=== PATIENT | male | born 1965 | race African-American/Black ===

== ENCOUNTER 2017-08-29 10:33 | Inpatient (IN) | payer OTHER, SELFPAY ==
[2017-08-29] MEDS ORDERED: Metoprolol Tartrate 5 MG/5 ML VIAL ONE ×2 (10:55→12:59)
[2017-08-29 11:06] LABS: #Eosinphils 0.1 thou/uL (0.0-0.7); #Lymphocytes 1.7 thou/uL (1.20-3.40); #Monocytes 0.9 thou/uL (0.11-0.59); #Neutrophils 10.6 thou/uL (1.40-6.50); %Basophils 0.2 % (0.0-1.0); %Eosinophils 0.8 % (0.0-10.0); %Lymphocytes 12.9 % (21.0-51.0); %Monocytes 6.6 % (0.0-10.0); %Neutrophils 79.6 % (42.0-75.0); Hemoglobin 16.6 g/dL (14.0-18.0); Mean Corpuscular HGB CONC 31.6 g/dL (32.0-36.0); Mean Corpuscular Hemoglobin 30.1 pg (27.0-31.0); Mean Corpuscular Volume 95.2 fl (80.0-94.0); Platelet Count 158 thou/uL (130-400); Red Blood Cell (RBC) Count 5.52 mill/uL (4.70-6.10); White Blood Cell (WBC) Count 13.4 thou/uL (4.8-10.8)
[2017-08-29] MEDS ORDERED: Magnesium 2 GM/NS 0.9% 50 ML 2 GM in Premix Bag 1 BAG IVPB SCH (11:15)
[2017-08-29 11:32] LABS: ALT (SGPT) 32 U/L (8-55); AST (SGOT) 34 U/L (5-34); Albumin 3.9 g/dL (3.5-5.0); Alkaline Phosphatase 109 U/L (40-150); Anion Gap 18 mmol/L (10-20); BUN (Urea Nitrogen) 15 mg/dL (8.4-25.7); Bilirubin, Total 1.1 mg/dL (0.2-1.2); CK (CPK) 275 U/L (30-200); Calc. Creatinine Clearance 0 mL/min (70-130); Calcium 9.1 mg/dL (7.8-10.44); Carbon Dioxide 24 mmol/L (22-29); Chloride 98 mmol/L (98-107); Estimated GFR-MDRD 60; Globulin 3.4 g/dL (2.4-3.5); Glucose 358 mg/dL (70-105); Lipase 23 U/L (8-78); Potassium 4.4 mmol/L (3.5-5.1); Protein, Total 7.3 g/dL (6.0-8.3); Sodium 136 mmol/L (136-145)
[2017-08-29 11:35] LABS: CKMB 6.6 ng/mL (0-6.6); Troponin I 0.075 ng/mL (< 0.028)
--- NOTE | 2017-08-29 12:12 | RAD ---
ONE VIEW CHEST: History: Pain. Bilateral lower extremity swelling. Shortness of breath. Comparison: None. FINDINGS: Enlarged cardiac silhouette. Pulmonary vessels are normal. Costophrenic angles are clear. Linear opac ity in the right midlung may represent atelectasis or possible small amount of thickening and fluid i n the minor fissure. No pneumothorax. IMPRESSION: Focal opacity in the right midlung as described above. POS: [facility]
--- NOTE | 2017-08-29 12:46 | PDOC.FPRHP ---
- History of Present Illness Chief Complaint: Lower extremity swelling History of Present Illness: 52 year old male with PMH diabetes mellitus type II, not currently on medications that presents with a 2 month history of lower extremity swelling. 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 Elevation of his feet improves the swelling. He denies any erythema or pain in lower extremities except when wearing his work boots. Patient also endorses shortness of breath even with ADL's that has been present for the past two weeks. He has never experienced shortness of breath to this degree previously. He states that he is a tobacco user. He has smoked at least 1 PPD for many years, but since August 22 he has been unable to smoke due to the fact that he is too short of breath. Patient denies any associated chest pain, nausea, vomiting, diarrhea, or diaphoresis. He denies orthopnea or PND. Patient states that he just took his DMV physical in May and was not noted to have any problems at that time. He has not followed with a PCP in over 3 years. He is supposed to be taking metformin, but has been non-compliant with medications due to GI side effects. Patient also has a history of MATTI that was diagnosed years ago. He has not been on CPAP. Patient reports he quit drinking around Thanks. Patient does endorse having a cough productive of green sputum over the last few weeks. He states that it is improving. Patient does not currently have PCP. He was following with Dr. Wadsworth several years ago. - Allergies/Adverse Reactions Allergies Allergy/AdvReac Type Severity Reaction Status Date / Time No Known Allergies Allergy Verified 08/29/17 19:51 - Home Medications Medication Instructions Recorded Confirmed Type metFORMIN [Glucophage] 250 mg PO BID 08/29/17 08/29/17 History Comments: Patient not currently taking any medications. He is supposed to be on metformin , but has not been taking it due to GI symptoms. 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 Quit drinking last thanks - Review of Systems General: reports: fatigue. denies: fever/chills, weight/appetite/sleep changes , night sweats Eyes: denies: vision changes ENT: denies: nasal congestion, rhinorrhea Respiratory: reports: cough (2 weeks), shortness of breath, exercise intolerance. denies: congestion Cardiovascular: reports: edema. denies: chest pain, palpitation, paroxysmal nocturnal dyspnea, orthopnea Gastrointestinal: denies: nausea, vomiting, diarrhea, constipation, abdominal pain Genitourinary: denies: incontinence, dysuria, polyuria Skin: denies: rashes, jaundice Musculoskeletal: denies: pain, tenderness, stiffness Neurological: denies: numbness, syncope, seizure Psychological: denies: anxiety, depression - Vital signs BP: [161/99] HR: [111] RR: [18] Tmax: [98.0 F] Pox: [96]% on [2L] Wt: [141.52 kg] - Physical Exam Constitutional: NAD, awake, alert and oriented, well developed -Constitutional: Obese HEENT: EOMI, conjunctiva clear, grossly normal vision, grossly normal hearing Neck: supple -Heart: Tachycardic, Regular rhythm, no murmurs. Bilateral LE edema, non-pitting -Lungs: Wheezing diffusely throughout Abdomen: soft, non-tender, bowel sounds present -Abdomen: mildly distended Musculoskeletal: normal structure, ROM grossly normal Neurological: no focal deficit Skin: capillary refill <2 seconds -Skin: right breast mass engrossing areola. Inverted nipple. Scaly skin findings. Heme/Lymphatic: no unusual bruising or bleeding Psychiatric: normal mood and affect, good judgment and insight, intact recent and remote memory FMR H&P: Results - Labs Result Diagrams: 08/30/17 04:33 08/30/17 04:33 Lab results: WBC 13.4 thou/uL (4.8-10.8) H 08/29/17 10:49 Hgb 16.6 g/dL (14.0-18.0) 08/29/17 10:49 Hct 52.5 % (42.0-52.0) H 08/29/17 10:49 MCV 95.2 fl (80.0-94.0) H 08/29/17 10:49 Plt Count 158 thou/uL (130-400) 08/29/17 10:49 Neutrophils % 79.6 % (42.0-75.0) H 08/29/17 10:49 Sodium 136 mmol/L (136-145) 08/29/17 10:49 Potassium 4.4 mmol/L (3.5-5.1) 08/29/17 10:49 Chloride 98 mmol/L (98-107) 08/29/17 10:49 Carbon Dioxide 24 mmol/L (22-29) 08/29/17 10:49 BUN 15 mg/dL (8.4-25.7) 08/29/17 10:49 Creatinine 1.48 mg/dL (0.6-1.3) H 08/29/17 10:49 Glucose 358 mg/dL (70-105) H 08/29/17 10:49 Calcium 9.1 mg/dL (7.8-10.44) 08/29/17 10:49 Total Bilirubin 1.1 mg/dL (0.2-1.2) 08/29/17 10:49 AST 34 U/L (5-34) 08/29/17 10:49 ALT 32 U/L (8-55) 08/29/17 10:49 Alkaline Phosphatase 109 U/L (40-150) 08/29/17 10:49 Creatine Kinase 275 U/L (30-200) H 08/29/17 10:49 CK-MB (CK-2) 6.6 ng/mL (0-6.6) 08/29/17 10:49 B-Natriuretic Peptide 209.7 pg/mL (0-100) H 08/29/17 10:49 Serum Total Protein 7.3 g/dL (6.0-8.3) 08/29/17 10:49 Albumin 3.9 g/dL (3.5-5.0) 08/29/17 10:49 Lipase 23 U/L (8-78) 08/29/17 10:49 - EKG Interpretation EK. V-tach 2. A-fib with RVR, T wave changes 3. A-flutter with T wave changes in inferior and posterior leads - Radiology Interpretation CT scan - chest Status: image reviewed by me, report reviewed by me Additional comment: No evidence of PE. Right sided pleural effusion. Breast mass noted on CT, recommend further evaluation. Chest x-ray Status: report reviewed by me Additional comment: Focal opacity in right midlung Other Status: report reviewed by me Additional comment: Bilateral LE venogram: No evidence of DVT FMR H&P: A/P - Problem List (1) Atrial fibrillation with RVR Current Visit: Yes Status: Acute Code(s): I48.91 - UNSPECIFIED ATRIAL FIBRILLATION (2) CHF (congestive heart failure), NYHA class III Current Visit: Yes Status: Acute Code(s): I50.9 - HEART FAILURE, UNSPECIFIED (3) Diabetes mellitus type II, uncontrolled Current Visit: Yes Status: Chronic Code(s): E11.65 - TYPE 2 DIABETES MELLITUS WITH HYPERGLYCEMIA (4) Acute respiratory failure with hypoxia Current Visit: Yes Status: Acute Code(s): J96.01 - ACUTE RESPIRATORY FAILURE WITH HYPOXIA (5) HTN (hypertension) Current Visit: Yes Status: Acute Code(s): I10 - ESSENTIAL (PRIMARY) HYPERTENSION (6) Tobacco abuse Current Visit: Yes Status: Chronic Code(s): Z72.0 - TOBACCO USE (7) COPD (chronic obstructive pulmonary disease) Current Visit: Yes Status: Chronic - Plan 1. A-fib/flutter with RVR - Patient presented due to shortness of breath for the past two weeks and LE swelling for the past 2 months. Found to be in Vtach initially with HR in 200' s. Repeat EKG showed Afib with RVR. 5 mg of Lopressor was given and patient's HR responded appropriately. Patient received 5 mg of lopressor again several hours later. Repeat EKG showed Aflutter with HR in 110's - New onset; uncertain of duration - Responded to 10 mg of IV lopressor (HR 110's) - Continue Lopressor PO; consider drip if patient's heart rate not well controlled, may try IV metoprolol first - Cardiology consulted; appreciate recs - Monitor on telemetry - PT/OT eval/treat - TSH normal - Patient never unstable during episodes of vtach or RVR; did not require cardioversion 2. Acute hypoxic respiratory failure possibly 2/2 new onset CHF - 2 week history of shortness of breath with ADL's consistent with NYHA class III CHF - Echo pending - Lasix PO daily - Cardiology consulted; appreciate recs - Continue O2 PRN to keep O2 sats >92% - Strict I&O's - Daily weights - Trending CE's - CTA negative for PE, right pleural effusion noted on CTA - Heart score of 5, no prior stents/cath 3. Possible COPD - No confirmed diagnosis - Symptoms consistent with chronic bronchitis - Several week history of productive cough (improving) with bilateral wheezing - JONH duonebs - PRN albuterol nebs 4. Right breast mass with bilateral gynecomastia - Concern for malignancy - U/S right breast pending - Consider follow up with mammogram inpatient vs. outpatient 5. DM type II, uncontrolled - HgA1c >11 - Stopped taking metformin due to GI side effects - Mild SSI - CC diet - Start glipizide daily - ASA daily - Start lisinopril daily - Start high intensity statin - FLP pending - ACHS accuchecks 6. HTN - Not previously diagnosed - Not on HTN medications at home - Started lisinopril and lopressor for comorbid conditions - Will continue to monitor and adjust medications as necessary 7. 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 He reports that he has not been able to walk very far at all 2/2 to feeling SOB. He has also stopped smoking 2/2 to feeling SOB. Reports that he has also had some LE swelling b/l as well as R breast mass that has gotten worse over the last several months. Reports that this mass may have appeared after trauma/scraping his chest on his truck, but there has been no swelling, redness, drainage, fevers. Reports that he hasn't had a cath/stress test before, no one has followed his DM II in a long time, no eval of his breast mass. 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 Was seeing Dr. Wadsworth but stopped seeing him years ago 2/2 to loss of insurance. States he is willing to go back to see him now that we have discussed that he likely has a lot of medical problems and things to catch up on. - Pertinent findings Gen: AOx4, obese, wearing 2 L NS Heart: difficult to ascultate 2/2 to habitus but sounds regular despite EKG findings of aflutter Lungs: diffuse wheezing Chest: large R breast mass engrossing areola, inverted nipple, scaly skin findings - Plan Date/Time: 08/29/17 4124 Pertinent A/P: 1. A flutter with RVR-initial EKG showed vtach but pt was never unstable clinically and was given IV metoprolol. Last two EKGs HR has come down now to 100 and shows 2:1 aflutter, will add BB and hold on drip as HR is now controlled , consider starting if HR starts to climb 2. SOB unknown etiology-pt has not had regular medical care states he doesnt have any problems but we suspect COPD vs CHF vs CAD. COPD given wheezing on exam , long hx of smoking, advised smoking cessation, will start with duo nebs, does not appear in exacerbation so will hold off on steroids and abx, if worsening will start. CHF-elevated BNP, LE edema, orthopnea, will order an echo. CTA shows pleural effusion, will diurese gently. Pt at high risk for CAD, HEART score of 5, will trend trops, have been indeterminant so far, consulted cards and would appreciate recs concerning cath vs stress and inpatient or outpatient work up. 3. R breast mass-concerning for malignancy on exam, will order u/s and discussed with pt that we are concerned about this and he will need a diagnostic mammogram and follow up 4. DM II-Check A1c, pt refusing to take meformin 2/2 to side effects, will start sulfonylurea and check A1c and risk stratify with FLP, TSH. I, Wanda Wilson, have evaluated this patient and agree with findings/plan as outlined by social media intern resident. Pertinent changes/additions are listed here. Attending Addendum - Attending Addendum Date/Time: 08/30/17 284 I personally evaluated the patient and discussed the management with Dr. Guzman. I agree with the History, Examination, Assessment and Plan documented above with any addition or exceptions noted below. 52 y.o. BM with h/o DM2 uncontrolled, MATTI off CPAP, tobacco abuse with acute progressive increased Dyspnea at rest, BLE edema found to be in Afib/flutter with RVR, rate controled with B-halima. Requiring supplemental O2 and Nebs to maintain oxygenation. Also of note is large brest mass with nipple inversion, concern for malignancy.
[2017-08-29] MEDS ORDERED: Enoxaparin Sodium 100 MG/ML SYRINGE ONE (13:17)
--- NOTE | 2017-08-29 13:56 | ULT ---
BILATERAL LOWER EXTREMITY VENOUS DOPPLER ULTRASOUND: Date: 08/29/17 HISTORY: Bilateral lower extremity edema. TECHNIQUE: Soto scale ultrasound with color flow and spectral Doppler imaging of the deep venous systems of the lower extremities was performed bilaterally. FINDINGS: There is good flow, compression, and augmentation noted in the common femoral, femoral, deep femoral, popliteal, posterior tibial, and greater saphenous veins on either side. IMPRESSION: No evidence of deep venous thrombosis in either lower extremity. POS: [facility]
--- NOTE | 2017-08-29 14:03 | CT ---
CT PULMONARY ANGIOGRAM WITH IV CONTRAST AND 3D POSTPROCESSING: Date: 08/29/17 HISTORY: 52-year-old male with chest pain, shortness of breath, and lower extremity swelling. 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 FINDINGS: The pulmonary arterial vasculature is well opacified without filling defects to suggest pulmonary emb olism. The thoracic aorta demonstrates no evidence of aneurysmal dilatation. No pericardial effusion is seen. A small right pleural effusion is noted. No pneumothoraces or left-sided pleural effusions a re identified. No lobar consolidation is noted. Degenerative changes are present in the spine. Bilate ral gynecomastia is present. An underlying right-sided breast mass cannot be excluded. IMPRESSION: 1. No CT evidence of pulmonary embolism. 2. Right-sided pleural effusion. 3. Bilateral gynecomastia with questionable right breast mass. Further evaluation with mammogram (wi th ultrasound if needed) should be performed. THANG Fried
[2017-08-29] MEDS ORDERED: ISOVUE-370 76%-LOCM 1 ML ONE (14:47)
[2017-08-29 15:00] LABS: CKMB 5.9 ng/mL (0-6.6); Troponin I 0.058 ng/mL (< 0.028)
[2017-08-29] MEDS ORDERED: Dextrose 5% in Water 1,000 ML IV PRN (15:11)
[2017-08-29] MEDS ORDERED: Dextrose 50% Abboject 50 ML SYRINGE SLOW IVP PRN (15:11)
[2017-08-29] MEDS ORDERED: Albuterol Sulfate 2.5 mg/3 ml Neb NEB PRN (15:11)
[2017-08-29 15:31] LABS: Hemoglobin A1c 11.5 % (4.0-6.0)
[2017-08-29 15:33] VITALS: BMI 44.7
[2017-08-29] MEDS ORDERED: Furosemide 20 MG TAB PO SCH (16:00)
--- NOTE | 2017-08-29 16:38 | ULT ---
RIGHT BREAST ULTRASOUND: Date: 08/29/17 HISTORY: Possible right breast mass. COMPARISON: None. CORRELATION: Angiogram of chest dated 08/29/17. TECHNIQUE: Targeted sonographic imaging of the right breast in the retroareolar region is performed. FINDINGS: There is an irregular marginated, hypoechoic mass with vascularity in the retroareolar region measuri ng 3.3 x 4.8 x 4.3 cm. This mass is felt to correspond to the CT findings. IMPRESSION: BIRADS 4: Suspicious Abnormality - Biopsy Should Be Considered RECOMMENDATION: Ultrasound guided right breast biopsy. POS: [facility]
[2017-08-29] MEDS: HumaLOG 300 UNITS/3 ML VIAL SC PRN (18:04)
[2017-08-29 18:11] LABS: CKMB 6.3 ng/mL (0-6.6); Troponin I 0.055 ng/mL (< 0.028)
[2017-08-29] MEDS ORDERED: Albuterol Sulfate 2.5 mg/3 ml Neb IPPB SCH (18:30)
[2017-08-29] MEDS ORDERED: Carvedilol 6.25 MG TAB PO SCH (20:30)
[2017-08-29] MEDS: Atorvastatin Calcium 40 MG TAB PO SCH (20:49)
[2017-08-29] MEDS: Enoxaparin Sodium 40 MG/0.4 ML SYRINGE SC SCH (20:50)
[2017-08-29] MEDS: Enoxaparin Sodium 100 MG/ML SYRINGE SC SCH (20:51)
[2017-08-29] MEDS ORDERED: Metoprolol Tartrate 50 MG TAB PO SCH (21:00)
[2017-08-30 05:40] LABS: Amphetamine Not Detected (NotDetected); Barbiturates Screen Not Detected (NotDetected); Benzodiazepine Screen Not Detected (NotDetected); Cocaine Metabolite Screen Not Detected (NotDetected); Medtox Control Line Valid? VALID (VALID); Medtox Reader # READER 4; Methadone Not Detected (NotDetected); Methamphetamine Not Detected (NotDetected); Opiate Screen Not Detected (NotDetected); Oxycodone Screen Not Detected (NotDetected); Phencyclidine (PCP) Not Detected (NotDetected); THC/Cannabinoid Screen Not Detected (NotDetected); Tricyclic Screen Not Detected (NotDetected)
[2017-08-30 05:47] LABS: #Eosinphils 0.3 thou/uL (0.0-0.7); #Lymphocytes 2.1 thou/uL (1.20-3.40); #Monocytes 1.1 thou/uL (0.11-0.59); #Neutrophils 7.8 thou/uL (1.40-6.50); %Basophils 0.2 % (0.0-1.0); %Eosinophils 2.3 % (0.0-10.0); %Lymphocytes 18.7 % (21.0-51.0); %Monocytes 9.7 % (0.0-10.0); %Neutrophils 69.1 % (42.0-75.0); Anion Gap 8 mmol/L (10-20); BUN (Urea Nitrogen) 12 mg/dL (8.4-25.7); Calc. Creatinine Clearance 158 mL/min (70-130); Calcium 8.5 mg/dL (7.8-10.44); Carbon Dioxide 34 mmol/L (22-29); Cardiac Risk 4.3 (Less than 4.5); Chloride 99 mmol/L (98-107); Cholesterol 128 mg/dl (< 200 Desired); Estimated GFR-MDRD 87; Glucose 155 mg/dL (70-105); HDL Cholesterol 30 mg/dL (>60 Neg Risk); LDL Cholesterol, Calculated 86 mg/dL; Mean Corpuscular Hemoglobin 30.3 pg (27.0-31.0); Mean Corpuscular Volume 94.8 fl (80.0-94.0); Mean Platelet Volume 8.8 fL (7.4-10.4); Platelet Count 150 thou/uL (130-400); Potassium 3.9 mmol/L (3.5-5.1); RBC Distribution Width 12.8 % (11.5-14.5); Sodium 137 mmol/L (136-145); Triglycerides 58 mg/dL (Less than 150); White Blood Cell (WBC) Count 11.3 thou/uL (4.8-10.8)
--- NOTE | 2017-08-30 06:07 | PDOC.FM ---
- Subjective Subjective: Patient doing well this AM. No significant overnight events. Patient denies chest pain, palpitations, shortness of breath, nausea, or vomiting. Discussed new medications that were started in the hospital. Patient understands the necessity to be on these medications. Patient slept with O2 last night and slept much better than normal. He was diagnosed sleep apnea but does not have CPAP machine at home. - Objective MAR Reviewed: Yes Vital Signs & Weight: Vital Signs (12 hours) Temp Pulse Resp BP BP Pulse Ox 08/30/17 04:55 97 08/30/17 04:00 97.6 F 110 H 20 137/91 H 95 08/30/17 00:00 97.4 F L 111 H 17 132/91 H 96 08/29/17 20:50 157/85 H 08/29/17 20:42 97.5 F L 113 H 25 H 157/85 H 97 08/29/17 19:36 120 H 20 97 08/29/17 19:01 97.5 F L 111 H 25 H 178/106 H 97 08/29/17 18:38 98.0 F 111 H 18 Weight Weight 143.834 kg I&O: 08/28/17 08/29/17 08/30/17 06:59 06:59 06:59 Intake Total 1205 Output Total 1205 Balance 0 Result Diagrams: 08/30/17 04:33 08/30/17 04:33 EKG Reviewed by me: Yes Radiology Reviewed by me: Yes <Ibis Guzman - Last Filed: 08/30/17 08:43> - Objective Vital Signs & Weight: Vital Signs (12 hours) Temp Pulse Resp BP BP Pulse Ox 08/30/17 09:58 95 18 98 08/30/17 09:15 138/85 08/30/17 09:13 138/85 08/30/17 06:41 100 20 97 08/30/17 04:55 97 08/30/17 04:00 97.6 F 110 H 20 137/91 H 95 Weight Weight 143.834 kg I&O: 08/29/17 08/30/17 08/31/17 06:59 06:59 06:59 Intake Total 1205 Output Total 1205 Balance 0 Result Diagrams: 08/30/17 04:33 08/30/17 04:33 <Lucrecia Barbour - Last Filed: 08/30/17 13:22> Phys Exam - Physical Examination Constitutional: NAD HEENT: moist MMs Neck: supple Respiratory: wheezing present Cardiovascular: no significant murmur tachycardic, regular rhythm Gastrointestinal: soft, non-tender, positive bowel sounds Trace non-pitting edema of LE's bilaterally Neurological: non-focal Psychiatric: normal affect Deviation from normal: Large, palpable mass engrossing areola on R. Overlying skin changes -: Inverted nipple <Ibis Guzman - Last Filed: 08/30/17 08:43> Dx/Plan (1) Atrial fibrillation with RVR Code(s): I48.91 - UNSPECIFIED ATRIAL FIBRILLATION Status: Acute (2) CHF (congestive heart failure), NYHA class III Code(s): I50.9 - HEART FAILURE, UNSPECIFIED Status: Acute (3) Diabetes mellitus type II, uncontrolled Code(s): E11.65 - TYPE 2 DIABETES MELLITUS WITH HYPERGLYCEMIA Status: Chronic (4) Acute respiratory failure with hypoxia Code(s): J96.01 - ACUTE RESPIRATORY FAILURE WITH HYPOXIA Status: Acute (5) HTN (hypertension) Code(s): I10 - ESSENTIAL (PRIMARY) HYPERTENSION Status: Acute (6) Tobacco abuse Code(s): Z72.0 - TOBACCO USE Status: Chronic (7) COPD (chronic obstructive pulmonary disease) Status: Chronic - Plan Plan: 1. A-fib/flutter with RVR - Patient presented due to shortness of breath for the past two weeks and LE swelling for the past 2 months. Found to be in Vtach initially with HR in 200' s. Repeat EKG showed Afib with RVR. 5 mg of Lopressor was given and patient's HR responded appropriately. Patient received 5 mg of lopressor again several hours later. Repeat EKG showed Aflutter with HR in 110's - New onset; uncertain of duration - Responded to 10 mg of IV lopressor (HR 110's) - Continue carvedilol per cardiology recs - Cardiology consulted; appreciate recs - Monitor on telemetry - PT/OT eval/treat - TSH normal - Patient never unstable during episodes of vtach or RVR; did not require cardioversion - Patient started on therapeutic lovenox per cardiology 2. Acute hypoxic respiratory failure possibly 2/2 new onset CHF - 2 week history of shortness of breath with ADL's consistent with NYHA class III CHF - Echo pending - Lasix PO daily (mild diuresis) - Cardiology consulted; appreciate recs - Continue O2 PRN to keep O2 sats >92% - Strict I&O's - Daily weights - CE's trended downward - CTA negative for PE, right pleural effusion noted on CTA - Heart score of 4-5, no prior stents/cath 3. Possible COPD - No confirmed diagnosis - Symptoms consistent with chronic bronchitis - Several week history of productive cough (improving) with bilateral wheezing - JONH duonebs - PRN albuterol nebs 4. Right breast mass with bilateral gynecomastia - Concern for malignancy - U/S right breast concerning for malignancy; BIRADS score of 4 - U/S guided right breast biopsy pending per recommendations of radiology 5. DM type II, uncontrolled - HgA1c >11 - Stopped taking metformin due to GI side effects - Mild SSI - CC diet - Start glipizide daily - ASA daily - Start lisinopril daily - Start high intensity statin - ACHS accuchecks - ASCVD risk score of 20.9%; recommend high dose statin 6. 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 Will follow cardiology recommendations. <Ibis Guzman - Last Filed: 08/30/17 08:43> Attending Addendum - Attending Addendum Date/Time: 08/30/17 1321 I personally evaluated the patient and discussed the management with Dr. Guzman. I agree with the History, Examination, Assessment and Plan documented above with any addition or exceptions noted below. The patient became tachycardic greater than 150's this morning while ambulating with therapy. He is also wheezing. Will continue nebs. Likely has underlying copd, will start maintenance inhaler. Pt is also requiring o2 and will try to wean. Echo pending. If heart rate remains elevated, may need to start him on a drip. <Lucrecia Barbour - Last Filed: 08/30/17 13:22>
--- NOTE | 2017-08-30 08:48 | CON ---
DATE OF SERVICE: 08/29/2017 HISTORY: Pedro Little is a 52-year-old black male with approximately 10-year history of diabetes, although he is noncompliant with taking his metformin. He has noted over the last 3 or 4 weeks that he started to develop lower extremity edema. He also has had progressive dyspnea on exertion where he is so short of breath that he could not even smoke over the last week. At times, he will feel his heart beating very rapidly. He denies any chest pain, nausea, vomiting, or diaphoresis. He had a DMV physical in May and apparently was not having any problems at that time. He also has history of obstructive sleep apnea, but does not use CPAP. He came to the emergency room for further evaluation and found to be in atrial fibrillation/flutter. He was admitted for further treatment. He did have EKG in the emergency room with heart rate of 227 per minute. He denies ever having any chest discomfort. PAST MEDICAL HISTORY: Diabetes, not compliant with medications. He denies history of hypertension, but his blood pressure is quite elevated. He denies history of hyperlipidemia, but there are no tests during this admission. MEDICATIONS: None. ALLERGIES: None. OPERATIONS: Neck surgery and cyst removal. SOCIAL HISTORY: He smoke 2 packs per day, but has cut down to 1 pack per day over the last year. Over the last week, he has been unable to smoke due to shortness of breath. FAMILY HISTORY: Unremarkable. REVIEW OF SYSTEMS: Twelve point review of systems otherwise unremarkable. PHYSICAL EXAMINATION: VITAL SIGNS: 161/99, pulse of up to 100, in atrial fibrillation. It is of note that initial blood pressure was 99/79. In the emergency room, his blood pressure has gradually increased. CHEST: Reveals expiratory wheezing. CARDIAC: S1, S2 normal, without any S3, S4 or murmurs. HEENT: PERRL. NECK: Supple. ABDOMEN: Normal bowel sounds. The abdomen is obese. There is no tenderness or organomegaly. EXTREMITIES: Revealed 1+ pretibial edema. NEUROLOGIC: Grossly intact. LABORATORY DATA: Initial EKG revealed a right wide complex tachycardia with rate of 227 per minute with right bundle branch block morphology. EKG later in the emergency room revealed atrial flutter. Hemoglobin 16.6, hematocrit 52.5, white count 13,400, platelets 153,000. D-dimer 1.44. Chest CTA revealed no evidence of pulmonary embolism. There was a right pleural effusion. Troponin I 0.058. BNP 209.7. TSH is normal. Hemoglobin A1c 11.5. Sodium 136, potassium 4.4, chloride 98, carbon dioxide 24, BUN 15, creatinine 1.48. IMPRESSION: Atrial fibrillation/atrial flutter. At presentation, he appeared to be in atrial flutter with 1:1 conduction. EKG will be repeated in the morning to reassess his rhythm. He certainly should be on anticoagulation. He will be started on Lovenox 140 mg q.12 hours. He certainly may have poor left ventricular function. I will change him to carvedilol. Echocardiogram will be performed. Consideration may need to be given to electrophysiology consult depending upon his rhythm going forward. Fasting lipid profile will be obtained. TIFFANIE
[2017-08-30] MEDS ORDERED: Enoxaparin Sodium 40 MG/0.4 ML SYRINGE SC SCH (09:00)
[2017-08-30] MEDS: Lisinopril 10 MG TAB PO SCH (09:13)
[2017-08-30] MEDS: Furosemide 20 MG TAB PO SCH (09:15)
[2017-08-30] MEDS: Carvedilol 6.25 MG TAB PO SCH ×2 (09:15→17:55)
[2017-08-30] MEDS: Aspirin 81 mg Enteric Coated Tablet PO SCH (09:16)
[2017-08-30] MEDS: Enoxaparin Sodium 40 MG/0.4 ML SYRINGE SC SCH ×2 (09:16→21:16)
[2017-08-30] MEDS: Enoxaparin Sodium 100 MG/ML SYRINGE SC SCH ×2 (09:16→21:16)
[2017-08-30] MEDS: HumaLOG 300 UNITS/3 ML VIAL SC PRN ×2 (09:18→17:56)
--- NOTE | 2017-08-30 15:46 | ULT ---
EXAM: RIGHT BREAST ULTRASOUND GUIDED BIOPSY 08/30/17 HISTORY: Right breast mass. COMPARISON: None. FINDINGS: Technically successful ultrasound guided biopsy of a right breast mass. two 14 gauge core biopsy samp les were obtained. Biopsy clip was placed. TECHNIQUE: Consent obtained for an ultrasound guided biopsy of right breast mass. Right breast was prepped and d raped in a sterile fashion. 1% lidocaine buffered with sodium bicarbonate was used for local anesthes ia. Under ultrasound guidance, two 14 gauge biopsies of the right breast mass are performed. Biopsy s ample was placed directly into Formalin. Post biopsy clip was placed. A postprocedure mammogram is not performed at this time. Postprocedure mammogram should be performed to document clip placement. Clip placement can be performed in the near future. At that time, both br easts should be evaluated mammographically given what may be gynecomastia in the contralateral breast. IMPRESSION: Technically successful right breast biopsy. RECOMMENDATION: Postprocedure mammogram as well as a diagnostic left breast mammogram should be performed in the near future. Results of the study discussed with Dr. Hayden, 08/30/17 at 3:31 p.m. Code CR POS: EDGAR
[2017-08-30] MEDS: Atorvastatin Calcium 40 MG TAB PO SCH (21:16)
[2017-08-30] MEDS: Mometasone/Formoterol 120 PUFF INHALER INH SCH (22:59)
--- NOTE | 2017-08-31 05:12 | PDOC.FM ---
- Subjective Subjective: Patient doing well this AM. No significant overnight events. He denies any palpitations, chest pain, shortness of breath, nausea or vomiting. His heart rate has remained in the 110 range, except when he ambulates. Patient denies any symptoms when his heart rate becomes elevated. - Objective MAR Reviewed: Yes Vital Signs & Weight: Vital Signs (12 hours) Temp Pulse Resp BP BP Pulse Ox 08/31/17 04:35 95 08/31/17 04:00 97.5 F L 109 H 20 137/61 95 08/30/17 23:01 113 H 18 92 L 08/30/17 22:59 113 H 18 92 L 08/30/17 19:40 97.9 F 110 H 20 152/77 H 94 L 08/30/17 17:55 129/86 Weight Weight 143.834 kg I&O: 08/29/17 08/30/17 08/31/17 06:59 06:59 06:59 Intake Total 1205 720 Output Total 1205 Balance 0 720 Result Diagrams: 08/30/17 04:33 08/30/17 04:33 EKG Reviewed by me: Yes Radiology Reviewed by me: No <Ibis Guzman - Last Filed: 08/31/17 08:29> - Objective Vital Signs & Weight: Vital Signs (12 hours) Temp Pulse Pulse Pulse Resp BP BP 08/31/17 11:44 98.3 F 109 H 16 08/31/17 10:50 109 H 18 08/31/17 10:30 110 H 110 H 118/84 08/31/17 08:26 129/86 08/31/17 07:31 74 16 08/31/17 07:30 74 16 08/31/17 07:25 98.1 F 111 H 16 08/31/17 04:35 08/31/17 04:00 97.5 F L 109 H 20 BP BP Pulse Ox Pulse Ox Pulse Ox 08/31/17 11:44 127/89 94 L 08/31/17 10:50 94 L 08/31/17 10:30 129/80 93 L 94 L 08/31/17 08:26 08/31/17 07:31 95 08/31/17 07:30 95 08/31/17 07:25 128/88 96 08/31/17 04:35 95 08/31/17 04:00 137/61 95 Weight Weight 99.246 kg I&O: 08/30/17 08/31/17 09/01/17 06:59 06:59 06:59 Intake Total 1205 1410 Output Total 1205 475 Balance 0 935 Result Diagrams: 08/30/17 04:33 08/30/17 04:33 <Lucrecia Barbour - Last Filed: 08/31/17 14:24> Phys Exam - Physical Examination Constitutional: NAD HEENT: moist MMs Neck: supple Respiratory: wheezing present Cardiovascular: RRR, no significant murmur Gastrointestinal: soft, non-tender, positive bowel sounds Musculoskeletal: no edema Trace b/l LE edema Neurological: non-focal Psychiatric: normal affect Deviation from normal: Large right breast mass engrossing areola with inverted nipple. <Ibis Guzman - Last Filed: 08/31/17 08:29> Dx/Plan (1) Atrial fibrillation with RVR Code(s): I48.91 - UNSPECIFIED ATRIAL FIBRILLATION Status: Acute (2) CHF (congestive heart failure), NYHA class III Code(s): I50.9 - HEART FAILURE, UNSPECIFIED Status: Acute (3) Diabetes mellitus type II, uncontrolled Code(s): E11.65 - TYPE 2 DIABETES MELLITUS WITH HYPERGLYCEMIA Status: Chronic (4) Acute respiratory failure with hypoxia Code(s): J96.01 - ACUTE RESPIRATORY FAILURE WITH HYPOXIA Status: Acute (5) HTN (hypertension) Code(s): I10 - ESSENTIAL (PRIMARY) HYPERTENSION Status: Acute (6) Tobacco abuse Code(s): Z72.0 - TOBACCO USE Status: Chronic (7) COPD (chronic obstructive pulmonary disease) Status: Chronic - Plan Plan: 1. A-fib/flutter with RVR - Patient presented due to shortness of breath for the past two weeks and LE swelling for the past 2 months. Found to be in Vtach initially with HR in 200' s. Repeat EKG showed Afib with RVR. 5 mg of Lopressor was given and patient's HR responded appropriately. Patient received 5 mg of lopressor again several hours later. Repeat EKG showed Aflutter with HR in 110's - New onset; uncertain of duration - Responded to 10 mg of IV lopressor (HR 110's) - Continue carvedilol per cardiology recs - Cardiology consulted; appreciate recs - Monitor on telemetry - PT/OT eval/treat; pt d/c'd from PT - TSH normal - Patient never unstable during episodes of vtach or RVR; did not require cardioversion - Patient started on therapeutic lovenox per cardiology - Consult EP as patient's heart rate still becoming elevated upon ambulation 2. Acute hypoxic respiratory failure possibly 2/2 new onset CHF - 2 week history of shortness of breath with ADL's consistent with NYHA class III CHF - Echo with EF of 40-45% and evidence of right heart failure - Lasix PO daily (mild diuresis) - Cardiology consulted; appreciate recs - Continue O2 PRN to keep O2 sats >92%; wean as tolerated - pt may need home O2 - Strict I&O's - Daily weights - CE's trended downward - CTA negative for PE, right pleural effusion noted on CTA - Heart score of 4-5, no prior stents/cath - Patient on AKIN-I and BB 3. Possible COPD - No confirmed diagnosis - Symptoms consistent with COPD - Echo shows pulmonary HTN - May need home O2; will do home O2 eval - Several week history of productive cough (improving) with bilateral wheezing - JONH ricardo - PRN albuterol nebs - Started on maintenance inhaler - May have cor pulmonale based on results of echo 4. Right breast mass with bilateral gynecomastia - Concern for malignancy - U/S right breast concerning for malignancy; BIRADS score of 4 - U/S guided right breast biopsy performed - Pt will need diagnostic mammogram as outpatient 5. DM type II, uncontrolled - HgA1c >11 - Stopped taking metformin due to GI side effects - Mild SSI - CC diet - Start glipizide daily - ASA daily - Start lisinopril daily - Start high intensity statin - ACHS accuchecks - ASCVD risk score of 20.9%; recommend high dose statin 6. HTN - Not previously diagnosed - Not on HTN medications at home - Started lisinopril and carvedilol for comorbid conditions - Will continue to monitor and adjust medications as necessary 7. 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 Will follow cardiology recommendations. Consult EP today. <Ibis Guzman - Last Filed: 08/31/17 08:29> Attending Addendum - Attending Addendum Date/Time: 08/31/17 2566 I personally evaluated the patient and discussed the management with Dr. Guzman. I agree with the History, Examination, Assessment and Plan documented above with any addition or exceptions noted below. EP is being consulted. Pt still mildly tachycardic but is feeling better. Breast biopsy yesterday with path pending. Pt will need mammogram as an outpt. <Lucrecia Barbour - Last Filed: 08/31/17 14:24>
[2017-08-31] MEDS: Mometasone/Formoterol 120 PUFF INHALER INH SCH ×2 (07:30→20:30)
--- NOTE | 2017-08-31 08:05 | EKG ---
Test Reason : Blood Pressure : / mmHG Vent. Rate : 111 BPM Atrial Rate : 111 BPM P-R Int : 248 ms QRS Dur : 080 ms QT Int : 336 ms P-R-T Axes : 000 -42 250 degrees QTc Int : 456 ms Atrial flutter with 2 to 1 block Left axis deviation Inferior infarct (cited on or before 29-AUG-2017) Abnormal ECG When compared with ECG of 29-AUG-2017 13:34, (Unconfirmed) No significant change was found Confirmed by RICCO RAYMUNDO ([id number]) on 08/31/2017 8:04:51 AM Referred By: ROSEANN Confirmed By:RICCO RAYMUNDO
[2017-08-31] MEDS: Lisinopril 10 MG TAB PO SCH (08:26)
[2017-08-31] MEDS: Furosemide 20 MG TAB PO SCH (08:26)
[2017-08-31] MEDS: Carvedilol 6.25 MG TAB PO SCH ×2 (08:26→16:32)
[2017-08-31] MEDS: Aspirin 81 mg Enteric Coated Tablet PO SCH (08:26)
[2017-08-31] MEDS: Enoxaparin Sodium 40 MG/0.4 ML SYRINGE SC SCH ×2 (08:26→22:07)
[2017-08-31] MEDS: Enoxaparin Sodium 100 MG/ML SYRINGE SC SCH ×2 (08:26→22:06)
[2017-08-31] MEDS ORDERED: Furosemide 40 MG TAB PO SCH (09:15)
[2017-08-31] MEDS: HumaLOG 300 UNITS/3 ML VIAL SC PRN ×2 (12:35→18:28)
--- NOTE | 2017-08-31 20:16 | CON ---
DATE OF SERVICE: 08/31/2017 ELECTROPHYSIOLOGY CONSULTATION REPORT REFERRING PHYSICIAN: Dr. Barbour and Dr. Acharya. I am seeing Mr. Little at our [facility] telemetry floor as an electrophysiology oracle adf consultant . His problems are: 1. Newly found atrial flutter with rapid rates. 2. Acute on chronic congestive heart failure with reduced LVEF today. A 2D echo from 08/30/2017, sh ows LVEF 40-45%, more normal left atrial size, more enlarged right atrial size. Moderate tricuspid r egurgitation with mild to moderate pulmonary hypertension. Mild LV enlargement. 3. History of diabetes, obesity, hypertension. ALLERGIES: None. MEDICATIONS AT HOME: None. PAST SURGICAL HISTORY: Neck surgery and cyst removal in the past. SUBJECTIVE: Mr. Little was experiencing progressive dyspnea and lower extremity edema and scrotal e tegan as well. This was happening for the last 3-4 weeks. His dyspnea was present also in supine fas hion. He had orthopnea, but also with exertion. Denies chest pains. He could not even smoke becaus e of dyspnea, no fever, chills or cough. He has no stroke-like symptoms or neurological deficits, no bleeding issues. REVIEW OF SYSTEMS: Rest of 12-point review of system otherwise unremarkable. PAST MEDICAL HISTORY: As above. SOCIAL HISTORY: The patient is a smoker with 2 packs per day in the past. Denies ETOH or drug abuse . FAMILY HISTORY: Unremarkable. OBJECTIVE: VITAL SIGNS: Blood pressure is 132/89, heart rate 112, respirations 20, temperature 99 degrees Fahre nheit. GENERAL: He is alert and oriented, morbidly obese man in no apparent distress. NECK: Supple. Jugular veins not distended. CHEST: Coarse without crackles. CARDIAC: Heart sounds are regular to rate and rhythm, but tachycardic. No murmur or gallop. ABDOMEN: Benign. Bowel sounds positive. EXTREMITIES: Lower extremities without edema, clubbing or cyanosis. Pulses are adequate. NEUROLOGIC: Patient nonfocal. MUSCULOSKELETAL: No joint swelling, deformity. SKIN: Without rash. DATABASE: Telemetry strips and EKGs reviewed. Initial EKG reveals a very rapid wide complex tachyca rdia at 227 beats per minute, right bundle with left axis morphology. Subsequent EKGs reveal a more narrow complex atrial flutter with 2:1 AV conduction at about 110 beats per minute. LABORATORY DATA: Sodium 136, potassium 4.4, BUN 15, creatinine 1.48. TSH is normal. BNP 209. Trop onin I of 0.058. Platelet count 153,000. White count 11.3, hemoglobin 14, platelet count is 150. Subsequent BUN and creatinine is 12 and 1.07 . Subsequent troponins of 0.05 and 0.055. The telemetry strips still reveal atrial flutter with 2:1 AV conduction. ASSESSMENT AND PLAN: Mr. Little is a 52-year-old man with a prior history of diabetes, hypertension , obesity, smoking. He does not carry prior history of heart disease or heart attacks. On the other hand, he presents with new-onset atrial flutter associated with acute fluid overload/congestive hear t failure. He did have mild reduced LV function on echocardiogram, also mild pulmonary hypertension. At this point, his symptoms are improving with diuresis and rate control with diltiazem. We discusse d the potential mechanism of his arrhythmia. I suspect likely typical isthmus dependent atrial flutt er, also discussed the stroke risk associated with this. We detailed the potential treatment options including further rate controlling medication, cardiovers ion after a YURIY or ablation after a YURIY. He agreed to proceed with the ablation procedure which has the best chance to eliminate further recurrences, we discussed chance of infection, bleeding, strokes and recurrences. He understands and willing to proceed. We will schedule for a YURIY-guided ablation procedure in a near date.
[2017-08-31] MEDS: Atorvastatin Calcium 40 MG TAB PO SCH (22:06)
--- NOTE | 2017-09-01 06:22 | EKG ---
Test Reason : Blood Pressure : / mmHG Vent. Rate : 109 BPM Atrial Rate : 109 BPM P-R Int : 198 ms QRS Dur : 074 ms QT Int : 328 ms P-R-T Axes : -85 -43 265 degrees QTc Int : 441 ms Atrial flutter with 2 to 1 block Left axis deviation Inferior infarct (cited on or before 29-AUG-2017) Abnormal ECG When compared with ECG of 30-AUG-2017 07:10, Serial changes of Inferior infarct Present Confirmed by RICCO RAYMUNDO ([id number]) on 09/01/2017 6:03:12 AM Referred By: ROSEANN Confirmed By:RICCO RAYMUNDO
--- NOTE | 2017-09-01 06:31 | PDOC.FM ---
- Subjective Subjective: Patient doing well this AM. No significant overnight events. Patient still in A- flutter. Patient states that he discussed ablation procedure with Dr. Campuzano yesterday. Patient is concerned about the breast mass. We had a lengthy discussion about having that worked up as outpatient and the importance of establishing with a PCP. Patient otherwise feels well and has not had any complications since being admitted. - Objective MAR Reviewed: Yes Vital Signs & Weight: Vital Signs (12 hours) Temp Pulse Resp BP Pulse Ox 09/01/17 03:50 98.5 F 106 H 17 136/89 92 L 09/01/17 00:00 97.9 F 111 H 18 131/88 93 L 08/31/17 20:33 111 H 18 92 L 08/31/17 20:30 111 H 18 92 L 08/31/17 19:25 98.5 F 110 H 20 137/74 94 L Weight Weight 99.246 kg I&O: 08/30/17 08/31/17 09/01/17 06:59 06:59 06:59 Intake Total 1205 1410 240 Output Total 1205 475 Balance 0 935 240 Result Diagrams: 08/30/17 04:33 09/01/17 05:53 EKG Reviewed by me: Yes Radiology Reviewed by me: No <Ibis Guzman - Last Filed: 09/01/17 08:33> - Objective Vital Signs & Weight: Vital Signs (12 hours) Temp Pulse Resp BP Pulse Ox 09/01/17 14:10 109 H 18 94 L 09/01/17 11:40 97.9 F 110 H 14 121/76 92 L 09/01/17 09:50 105 H 16 93 L 09/01/17 08:05 98.1 F 111 H 16 135/88 91 L Weight Weight 138.89 kg I&O: 08/31/17 09/01/17 09/02/17 06:59 06:59 06:59 Intake Total 1410 600 Output Total 475 1225 Balance 935 -625 Result Diagrams: 08/30/17 04:33 09/01/17 05:53 <Lucrecia Barbour - Last Filed: 09/01/17 18:46> Phys Exam - Physical Examination Constitutional: NAD HEENT: moist MMs Neck: supple Respiratory: wheezing present Cardiovascular: RRR, no significant murmur Gastrointestinal: soft, non-tender, positive bowel sounds Musculoskeletal: pulses present Trace B/L LE edema Neurological: non-focal Psychiatric: normal affect Deviation from normal: Hard, non-tender breast mass engrossing areola with inverted nipple. <Ibis Guzman - Last Filed: 09/01/17 08:33> Dx/Plan (1) Atrial fibrillation with RVR Code(s): I48.91 - UNSPECIFIED ATRIAL FIBRILLATION Status: Acute (2) CHF (congestive heart failure), NYHA class III Code(s): I50.9 - HEART FAILURE, UNSPECIFIED Status: Acute (3) Diabetes mellitus type II, uncontrolled Code(s): E11.65 - TYPE 2 DIABETES MELLITUS WITH HYPERGLYCEMIA Status: Chronic (4) Acute respiratory failure with hypoxia Code(s): J96.01 - ACUTE RESPIRATORY FAILURE WITH HYPOXIA Status: Acute (5) HTN (hypertension) Code(s): I10 - ESSENTIAL (PRIMARY) HYPERTENSION Status: Acute (6) Tobacco abuse Code(s): Z72.0 - TOBACCO USE Status: Chronic (7) COPD (chronic obstructive pulmonary disease) Status: Chronic - Plan Plan: 1. A-fib/flutter with RVR - New onset; uncertain of duration - Continue carvedilol per cardiology recs - Cardiology consulted; appreciate recs - Monitor on telemetry - PT/OT eval/treat; pt d/c'd from PT to walking program - TSH normal - Patient never unstable during episodes of vtach or RVR; did not require cardioversion - Patient started on therapeutic lovenox per cardiology - EP consulted; appreciate recs, plan for YURIY-guided ablation in near future, patient made NPO at midnight 2. Acute hypoxic respiratory failure possibly 2/2 new onset CHF - 2 week history of shortness of breath with ADL's consistent with NYHA class III CHF - Echo with EF of 40-45% and evidence of right heart failure - Lasix PO daily (mild diuresis); dose increased per cardiology - Cardiology consulted; appreciate recs - Continue O2 PRN to keep O2 sats >92%; wean as tolerated - pt may need home O2 - Strict I&O's - Daily weights - CE's trended downward - CTA negative for PE, right pleural effusion noted on CTA - Heart score of 4-5, no prior stents/cath - Patient on AKIN-I and BB 3. Possible COPD - No confirmed diagnosis - Symptoms consistent with COPD - Echo shows pulmonary HTN - May need home O2; will do home O2 eval - Several week history of productive cough (improving) with bilateral wheezing - JONH duonebs - PRN albuterol nebs - Started on maintenance inhaler - May have cor pulmonale based on results of echo 4. Right breast mass with bilateral gynecomastia - Concern for malignancy - U/S right breast concerning for malignancy; BIRADS score of 4 - U/S guided right breast biopsy performed - Pt will need diagnostic mammogram as outpatient 5. DM type II, uncontrolled - HgA1c >11 - Stopped taking metformin due to GI side effects - Mild SSI - CC diet - Start glipizide daily - ASA daily - Start lisinopril daily - Start high intensity statin - ACHS accuchecks - ASCVD risk score of 20.9%; recommend high dose statin 6. HTN - Not previously diagnosed - Not on HTN medications at home - Started lisinopril and carvedilol for comorbid conditions - Will continue to monitor and adjust medications as necessary 7. 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 Will follow cardiology and EP recs. Plan for YURIY- guided ablation in near future per EP. <Ibis Guzman - Last Filed: 09/01/17 08:33> Attending Addendum - Attending Addendum Date/Time: 09/01/17 9949 I personally evaluated the patient and discussed the management with Dr. Guzman. I agree with the History, Examination, Assessment and Plan documented above with any addition or exceptions noted below. The patient has been seen by Dr. Campuzano. He will have a YURIY and ablation. Pathology has returned showing invasive ductal carcinoma. Will consult oncology. <Lucrecia Barbour - Last Filed: 09/01/17 18:46>
[2017-09-01] MEDS: Mometasone/Formoterol 120 PUFF INHALER INH SCH ×2 (06:46→19:45)
[2017-09-01 07:54] LABS: Anion Gap 11 mmol/L (10-20); BUN (Urea Nitrogen) 10 mg/dL (8.4-25.7); Calc. Creatinine Clearance 195 mL/min (70-130); Calcium 8.8 mg/dL (7.8-10.44); Carbon Dioxide 32 mmol/L (22-29); Chloride 98 mmol/L (98-107); Estimated GFR-MDRD Greater than 90; Glucose 132 mg/dL (70-105); Potassium 3.9 mmol/L (3.5-5.1); Sodium 137 mmol/L (136-145)
[2017-09-01] MEDS: Carvedilol 6.25 MG TAB PO SCH ×2 (08:10→19:11)
[2017-09-01] MEDS: Lisinopril 10 MG TAB PO SCH (08:10)
[2017-09-01] MEDS: Furosemide 40 MG TAB PO SCH (08:10)
[2017-09-01] MEDS: Enoxaparin Sodium 40 MG/0.4 ML SYRINGE SC SCH ×2 (08:11→21:04)
[2017-09-01] MEDS: Enoxaparin Sodium 100 MG/ML SYRINGE SC SCH ×2 (08:11→21:04)
[2017-09-01] MEDS: Aspirin 81 mg Enteric Coated Tablet PO SCH (08:11)
[2017-09-01] MEDS ORDERED: Fentanyl 100 MCG/2 ML VIAL ONE (14:39)
[2017-09-01] MEDS ORDERED: Propofol 1,000 MG/100 ML VIAL IV ONE (14:39)
[2017-09-01] MEDS ORDERED: Lidocaine 2% Jelly 5 ML TUBE ONE (14:53)
[2017-09-01] MEDS ORDERED: Midazolam HCl 2 mg/2 ml Vial ONE (14:59)
[2017-09-01] MEDS ORDERED: Ketamine 50 MG/ML VIAL ONE (14:59)
[2017-09-01] MEDS ORDERED: Lidocaine 1% (PF) 30 ML VIAL ONE (15:06)
--- NOTE | 2017-09-01 15:51 | ECHO ---
REASON FOR STUDY: The patient is a 52-year-old male with history of hypertension, obesity who presented with newly fou nd atrial flutter with rapid rate at rest. New onset of CHF. He is here for a YURIY to evaluate for cl ot prior to the planned ablation procedure. PROCEDURE: Patient received a propofol by the anesthesia specialist. After adequate sedation achieved, a standa rd transesophageal probe was passed into the esophagus without difficulty. The patient tolerated wel l, no complications noted. RESULTS: Left atrium is normal in size. Left appendage well visualized. Contains no clots. Four out of four pu lmonary veins were also seen. Interatrial septum is free of defect. The left ventricular systolic f unction is preserved. Mild LVH is noted. LV size is normal. Right-sided chambers nondilated. The somewhat mobile interatrial septum is seen. Mitral valve with trivial regurgitation, mild tricuspid regurgitation. Aortic valve with three leaflet without regurgitation or stenosis. The pericardial s pace with a trace effusion only. Mild tricuspid regurgitation is seen. CONCLUSION: 1. No intracardiac clots. 2. Upper normal left atrial size. 3. Near normal LV function. 4. Mild tricuspid regurgitation and mild mitral regurgitation. PLAN: Proceed with ablation procedure.
[2017-09-01] MEDS ORDERED: Heparin 10,000 UNITS/1 ML VIAL ONE (15:52)
[2017-09-01] MEDS ORDERED: PROPOFOL 200 MG/20 ML VIAL ONE (16:22)
[2017-09-01] MEDS ORDERED: Glycopyrrolate 0.2 MG/ML 5 ML SYRINGE ONE (16:22)
[2017-09-01] MEDS ORDERED: DOPamine 400 MG/D5W 250 ML 250 ML ONE (16:42)
[2017-09-01] MEDS: Atorvastatin Calcium 40 MG TAB PO SCH (21:04)
--- NOTE | 2017-09-01 21:06 | ULT ---
AXILLARY ULTRASOUND RIGHT UPPER EXTREMITY: 09/01/17 CLINICAL HISTORY: Breast malignancy. FINDINGS: Localized sonographic imaging of the right axilla reveals normal sized regional lymph nodes. No obvio us rounded or pathologically enlarged lymph node evident on the provided views. IMPRESSION: Imaged right axillary lymph nodes reveal no obvious pathologic enlargement. POS: CHRISTAL
[2017-09-01] MEDS: HumaLOG 300 UNITS/3 ML VIAL SC PRN (22:31)
--- NOTE | 2017-09-02 00:58 | HP ---
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 He has noted a right breast mass for many months. He is admitted to this hospitalization with malaise, dyspnea, poor mobility, found to have AFib with RV R over 200, treated medically, controlling it, undergoing YURIY and subsequent ablation, which he has j ust returned from. During this hospitalization, anticoagulation has been initiated. He is on therap eutic Lovenox. Prior to initiation of anticoagulation, ultrasound-guided biopsy of the right breast mass was performed. CT scan chest, thorax CTA on 08/29/2017, revealed no evidence of pulmonary embol ism, right pleural effusion, bilateral gynecomastia with right breast mass, changes suspicious for ma lignancy. The patient underwent breast ultrasound on 08/29/2017, noting a 3.3 x 4.8 x 4.3 cm, suspic ious; undergone ultrasound-guided biopsy on 08/30/2017, revealing infiltrating ductal carcinoma, grad e 2, longest core 14 mm; hormone receptor status and Herceptin status pending. The patient is a diabetic who quit taking his metformin. Hemoglobin A1c is 11.5. Renal function is normal. Glucose on admission was 358, now 132. He has history of sleep apneas and has used his CPAP until 3 years ago, when it malfunctioned; he has not had it repaired. HOME MEDICATIONS: Metformin, which he discontinued. Currently he has been placed on glipizide 5 mg a.m. with meals, sliding scale insulin, lisinopril 10 mg a day, Lasix 40 mg a day, therapeutic Loveno x 140 mg subcutaneous at 0900 hours and 2100 hours, Coreg 6.25 mg b.i.d., aspirin 81 mg a day, Lipito r 40 mg at bedtime, and DuoNebs. PAST SURGICAL HISTORY: Neck cyst excised. PAST MEDICAL HISTORY: Diabetes mellitus, noncompliant; sleep apnea, noncompliant; morbid obesity; me tabolic syndrome; hypertension; AFib with RVR; YURIY reveals near normal LV function. Dr. Acharya has seen him. REVIEW OF SYSTEMS: Ten-point noncontributory except as noted above. He has not had a colonoscopy. Dr. Diaz has been consulted and his consult is pending. PHYSICAL EXAMINATION: VITAL SIGNS: Height 5 feet 10 inches, weight 306 pounds, 43 BMI, temperature 97.9 degrees, 109 heart rate. HEAD, EYES, EARS, NOSE, AND THROAT: Unremarkable. LUNGS: Clear to auscultation. CARDIAC: Regular rate and rhythm without murmur, rub, or gallop. ABDOMEN: Soft, obese, nontender. No evident hernias. EXTREMITIES: Unremarkable. AXILLA: Right axilla reveals a palpable node, probably less than 2 cm, but it is firm. Left breast and axilla are unremarkable. Right breast reveals a 4.5 cm, firm, mass with some nodular projections into the skin areolar area occupying the retroareolar area right and with induration irregularity. Skin surface is distorted. LABORATORY DATA: Sodium 137, potassium 3.9, BUN 10, creatinine 0.85, glucose Accu-Cheks 131-259, hem oglobin 14, white count 11.3. ASSESSMENT AND PLAN: 1. Atrial fibrillation with rapid ventricular response, transesophageal echocardiography performed, results noted. Dr. Acharya has seen him. The patient will need cardiac evaluation and clearance pr ior to surgical treatment of his right breast cancer. See below. 2. Sleep apnea, CPAP malfunction 3 or 4 years ago and has not been repaired. He has not been using his CPAP at home. 3. Diabetes mellitus, noncompliant, elevated hemoglobin A1c 11.5, now starting glipizide. Accu-Chek s under control. 4. Hypertension. 5. Elevated cholesterol. 6. Right breast cancer. This cancer has skin changes. There is palpable lymphadenopathy. We will obtain ultrasound of his right axilla for staging. CT angio of his chest did not reveal any lung michelle nges and there is no liver changes seen on this CT angio. Awaiting Oncology consultation. Awaiting hormone receptor status and Herceptin status. The patient will probably need preoperative neoadjuvan t therapy, but we will wait for hormone status and Herceptin status and Oncology input to determine t he type. Surgical treatment in the future with right mastectomy, sentinel node biopsy could be consi dered in the future. We will need to wait for him to be off anticoagulation and he will need to have cardiac clearance prior to any surgical intervention. He is following Dr. Acharya with his comorbi dities. He will probably need some sort of noninvasive cardiac testing for ischemia. I will leave t hat to Dr. Acharya.
[2017-09-02 05:32] LABS: Platelet Count 167 thou/uL (130-400)
[2017-09-02] MEDS: Mometasone/Formoterol 120 PUFF INHALER INH SCH ×2 (06:39→18:52)
--- NOTE | 2017-09-02 07:06 | PDOC.FM ---
- Subjective Subjective: Patient doing well this AM. No significant overnight events. He has remained in SR since ablation. He denies any palpitations or chest pain. - Objective MAR Reviewed: Yes Vital Signs & Weight: Vital Signs (12 hours) Temp Pulse Resp BP BP Pulse Ox 09/02/17 06:39 92 16 99 09/02/17 06:35 92 16 99 09/02/17 04:00 98.7 F 96 16 179/103 H 97 09/01/17 23:55 98.3 F 97 15 124/87 97 09/01/17 19:44 104 H 16 95 09/01/17 19:30 97.4 F L 80 15 100 09/01/17 19:15 97.4 F L 80 15 151/82 H 100 Weight Weight 136.531 kg I&O: 09/01/17 09/02/17 09/03/17 06:59 06:59 06:59 Intake Total 600 600 Output Total 1225 1175 Balance -983 -575 Result Diagrams: 09/02/17 05:03 09/02/17 07:25 EKG Reviewed by me: Yes Radiology Reviewed by me: Yes <Ibis Guzman - Last Filed: 09/02/17 11:09> - Objective Vital Signs & Weight: Vital Signs (12 hours) Temp Pulse Resp BP Pulse Ox 09/02/17 13:31 101 H 16 93 L 09/02/17 11:35 98.8 F 83 16 117/69 91 L 09/02/17 09:43 100 18 96 09/02/17 08:20 98.7 F 86 16 144/85 H 97 09/02/17 06:39 92 16 99 09/02/17 06:35 92 16 99 09/02/17 04:00 98.7 F 96 16 179/103 H 97 Weight Weight 136.531 kg I&O: 09/01/17 09/02/17 09/03/17 06:59 06:59 06:59 Intake Total 600 600 Output Total 1225 1175 Balance -070 -575 Result Diagrams: 09/02/17 05:03 09/02/17 07:25 <Lucrecia Barbour - Last Filed: 09/02/17 14:45> Phys Exam - Physical Examination Constitutional: NAD HEENT: moist MMs Neck: supple Respiratory: wheezing present Cardiovascular: RRR, no significant murmur Gastrointestinal: soft, positive bowel sounds Trace edema Neurological: non-focal Psychiatric: normal affect Deviation from normal: Large breast mass engrossing areola. Inverted nipple. <Ibis Guzman - Last Filed: 09/02/17 11:09> Dx/Plan (1) Atrial fibrillation with RVR Code(s): I48.91 - UNSPECIFIED ATRIAL FIBRILLATION Status: Acute (2) CHF (congestive heart failure), NYHA class III Code(s): I50.9 - HEART FAILURE, UNSPECIFIED Status: Acute (3) Diabetes mellitus type II, uncontrolled Code(s): E11.65 - TYPE 2 DIABETES MELLITUS WITH HYPERGLYCEMIA Status: Chronic (4) Acute respiratory failure with hypoxia Code(s): J96.01 - ACUTE RESPIRATORY FAILURE WITH HYPOXIA Status: Acute (5) HTN (hypertension) Code(s): I10 - ESSENTIAL (PRIMARY) HYPERTENSION Status: Acute (6) Tobacco abuse Code(s): Z72.0 - TOBACCO USE Status: Chronic (7) COPD (chronic obstructive pulmonary disease) Status: Chronic - Plan Plan: 1. A-fib/flutter with RVR - New onset; uncertain of duration - Continue carvedilol per cardiology recs - Cardiology consulted; appreciate recs - Monitor on telemetry - PT/OT eval/treat; pt d/c'd from PT to walking program - TSH normal - Patient started on therapeutic lovenox per cardiology - EP consulted; appreciate recs - YURIY performed yesterday to evaluate for clots and LV function; Successful ablation - SR with biphasic p waves this AM 2. Acute hypoxic respiratory failure possibly 2/2 new onset CHF - 2 week history of shortness of breath with ADL's consistent with NYHA class III CHF - Echo with EF of 40-45% and evidence of right heart failure - Lasix PO daily - Cardiology consulted; appreciate recs - Continue O2 PRN to keep O2 sats >92%; wean as tolerated - pt may need home O2 - Strict I&O's - Daily weights - CE's trended downward - CTA negative for PE, right pleural effusion noted on CTA - Heart score of 4-5, no prior stents/cath - Patient on AKIN-I and BB - CXR this AM showed mild pulmonary effusion and findings consistent with mild CHF - Cardiac rehab eval 3. Possible COPD - No confirmed diagnosis - Symptoms consistent with COPD - Echo shows pulmonary HTN - May need home O2; will do home O2 eval - Several week history of productive cough (improving) with bilateral wheezing - JONH duonebs - PRN albuterol nebs - Started on maintenance inhaler - May have cor pulmonale based on results of echo - Consider adding azithromycin or levoquin with steroids if no improvement or worsening of symptoms 4. 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 Olmos - Mammogram right breast today showed invasive ductal carcinoma - Will need mammogram of left breast 5. DM type II, uncontrolled - HgA1c >11 - Stopped taking metformin due to GI side effects - Mild SSI - CC diet - Start glipizide daily - ASA daily - Start lisinopril daily - Start high intensity statin - [facility] breaecks - ASCVD risk score of 20.9%; recommend high dose statin 6. HTN - Not previously diagnosed - Not on HTN medications at home - Started lisinopril and carvedilol for comorbid conditions - Will continue to monitor and adjust medications as necessary 7. Tobacco abuse history - Registered Radiologic Technologist on cessation - Nicotine patch PRN Dispo: Continue to monitor HR. Will follow cardiology and EP recs. Plan for ablation per EP. <Ibis Guzman - Last Filed: 09/02/17 11:09> Attending Addendum - Attending Addendum Date/Time: 09/02/17 4782 I personally evaluated the patient and discussed the management with Dr. Guzman. I agree with the History, Examination, Assessment and Plan documented above with any addition or exceptions noted below. The patient is in a sinus rhythm. He was seen by Dr. Olmos who needs cardiac clearance before any surgery. Oncology has also been consulted. Will f/u with cardiology recs to see if he needs a stress test or other cardiac workup. <Lucrecia Barbour - Last Filed: 09/02/17 14:45>
[2017-09-02 07:56] LABS: Anion Gap 11 mmol/L (10-20); BUN (Urea Nitrogen) 14 mg/dL (8.4-25.7); Calc. Creatinine Clearance 166 mL/min (70-130); Calcium 9.2 mg/dL (7.8-10.44); Carbon Dioxide 30 mmol/L (22-29); Chloride 99 mmol/L (98-107); Estimated GFR-MDRD Greater than 90; Glucose 190 mg/dL (70-105); Sodium 135 mmol/L (136-145)
--- NOTE | 2017-09-02 08:16 | OP ---
DATE OF SERVICE: 09/01/2017 REFERRING PHYSICIAN: 1. Lucrecia Barbour M.D. 2. Cortez Acharya M.D. Mr. Little is a 52-year-old male with history of hypertension who presented with atrial flutter with rapid rate and a new onset heart failure. LVEF at 45%- 50%. He had very rapid conduction at times up in 220s with occasional abrasion on the EKGs, but 220 atrial flutter visible on diltiazem. PROCEDURE: The patient arrived in the cardiac cath lab technologist in atrial flutter with 2:1 conduction. During anesthesia induction, the atrial flutter, rate increased to 220 beats per minute, which required a prompt cardioversion. Following that, the rigth femoral vein was accessed x2 and 2 short 8 Fr sheath was introduced. A Decapolar catheter was advanced to the right ventricular right atrium, His bundle and average for CS position. Pacing mapping and recording was performed each location with the mapping catheter. The baseline sinus rhythm at 650 milliseconds. The AL is 180 milliseconds, QRS is narrow at 74 milliseconds. The QT is at 305 milliseconds. The HV interval measured to be 50 milliseconds. Sinus node recovery time was 1150ms, corrected sinus node recovery time was 500 milliseconds. AV Wenckebach cycle length was 260 milliseconds. VA Wenckebach was 360 milliseconds. Central retrograde VA conduction was seen. The AV ERP was at 340 milliseconds. No dual AV laura physiology was demonstrated. The atrial flutter was not induced with burst pacing. Due to the typical appearance of the presenting atrial flutter EKG, decision was made to perform cavotricuspid ablation. A ThermoCool SF, ST catheter, introduced to the right atrium via the right femoral venous sheath. 3D map of the right atrium was performed on the CARTO system. His bundle and cavotricuspid isthmus was clearly delineated. Following that cavotricuspid isthmus was performed, which did prolong the cavotricuspid isthmus conduction from the initial 90 milliseconds to 210 milliseconds. The longest cavotricuspid isthmus conduction time was measured by the ablation line suggestive of complete unidirectional block. The burst atrial pacing did not reinduce the atrial flutter on or off dopamine. The cavotricuspid isthmus block persisted during IV dopamine administration. Cardiac silhouette did not change. CONCLUSION: 1. Successful cavotricuspid isthmus ablation. 2. Abnormal sinus laura function, possibly related to the recent administered negative chronotropic agents. 3. Normal AV laura and His-Purkinje function demonstrated. 4. No evidence of accessory pathway. PLAN: Continue short term anticoagulation and center heart failure therapy. Monitor for recurrence of arrhythmias. MTDD
[2017-09-02] MEDS: Carvedilol 6.25 MG TAB PO SCH ×2 (08:26→16:49)
[2017-09-02] MEDS: Lisinopril 10 MG TAB PO SCH (08:26)
[2017-09-02] MEDS: Aspirin 81 mg Enteric Coated Tablet PO SCH (08:26)
[2017-09-02] MEDS: Furosemide 40 MG TAB PO SCH (08:26)
[2017-09-02] MEDS: Enoxaparin Sodium 40 MG/0.4 ML SYRINGE SC SCH ×2 (08:27→21:22)
[2017-09-02] MEDS: Enoxaparin Sodium 100 MG/ML SYRINGE SC SCH ×2 (08:29→21:22)
--- NOTE | 2017-09-02 08:59 | RAD ---
RADIOGRAPH CHEST 2 VIEWS: Date: 09/02/17. Time: 7:56 a.m. HISTORY: A 52-year-old male with dyspnea. Preoperative evaluation. COMPARISON: 08/29/17. FINDINGS: Again noted is the plate-like density along the right mid lung zone on the frontal view. The lateral view demonstrates this is along, or close to, the minor fissure. There are also streaky densities i n the one or both of the lower lobes as seen on the lateral view. There is a prominent meniscus that blunts the right posterior costophrenic angle. The left posterior costophrenic angle is sharp. The re is pulmonary vascular mild engorgement. Prominent interstitial markings. Cardiomegaly. No pneum othorax identified. IMPRESSION: 1. Small left pleural effusion, mild cardiomegaly, and mild pulmonary vascular congestion, are sugge stive of mild congestive heart failure. 2. Subsegmental atelectasis or scar close to the right minor fissure. JUAN [] POS: CHRISTAL
[2017-09-02] MEDS: HumaLOG 300 UNITS/3 ML VIAL SC PRN (11:41)
--- NOTE | 2017-09-02 14:58 | CON ---
DATE OF CONSULTATION: 09/02/2017 REASON FOR CONSULTATION: Breast cancer. HISTORY OF PRESENT ILLNESS: Mr. Little is a 52-year-old male with past medical his tory of diabetes, who presented to the emergency room with complaints of shortness of breath and aleah ise. He was noted to be in atrial fibrillation with RVR and underwent ablation with resolution of hi s symptoms. He had a CT angio in the ER to rule out pulmonary embolism. There was no PE; however, laila mcdermott did have a right-sided pleural effusion. He had a distal right breast mass. The patient admits to noting a mass in his right breast approximately one year ago. He admits that it has grown over the last few months, but he has not been seen any physician for this. He had a followup ultrasound, whic h showed an irregular hypoechoic mass measuring 3.3 x 4.8 x 4.3 cm. It involved the retroareolar reg ion. Breast biopsy confirmed a grade II invasive ductal carcinoma, hormone receptors are currently p ending. We were asked to see the patient regarding treatment recommendations. PAST MEDICAL HISTORY: 1. Diabetes. 2. Sleep apnea. 3. Noncompliance. 4. Morbid obesity. 5. Hypertension. 6. Atrial fibrillation with rapid ventricular response. PAST SURGICAL HISTORY: Neck cyst excision. ALLERGIES: No known drug allergies. HOME MEDICATIONS: Metformin 250 mg p.o. b.i.d., although patient states he has not been taking medic ation for several months. FAMILY HISTORY: No known history of breast or ovarian cancer. SOCIAL HISTORY: He is single. No children. Lives in [place], [facility]. REVIEW OF SYSTEMS: CONSTITUTIONAL: Denies fever, chills, night sweats. No recent weight loss or gain. EYES: No blurred or double vision. ENT: No pain, hoarseness, sore throat, or dysphagia. CARDIOVASCULAR: No chest pain. Positive for palpitations. RESPIRATORY: Positive shortness of breath and dyspnea on exertion, no cough. GASTROINTESTINAL: No nausea, vomiting, diarrhea, constipation or abdominal pain. GENITOURINARY: No dysuria or hematuria. MUSCULOSKELETAL: No joint or back pain. SKIN: No rash or pruritus. HEMATOLOGIC: No bleeding, bruising or clotting. NEUROLOGIC: Denies weakness, headache, numbness, tingling or seizure activity. PSYCHIATRIC: No anxiety or depression. PHYSICAL EXAMINATION: VITAL SIGNS: Temperature is 98.8, pulse is 83, respiratory rate 16, BP is 117/69, he is 96% on 2 lit ers. GENERAL: This is a morbidly obese man, in no acute distress. HEENT: Normocephalic, atraumatic. Pupils equal and reactive to light. He has poor dentition. NECK: Supple. CARDIOVASCULAR: Regular rate and rhythm. LUNGS: Diminished throughout. ABDOMEN: Obese. Bowel sounds are positive. It is nontender. EXTREMITIES: No clubbing, cyanosis. He has 1+ bilateral lower extremity edema. SKIN: He has peau d'orange changes of his right breast with inverted nipple. Left breast normal. H e is gynecomasty. HEMATOLOGIC: No petechia or purpura. NEUROLOGICAL: Nonfocal. PSYCHIATRIC: The patient is alert and oriented and appropriate. PERTINENT LABORATORY AND X-RAYS: Current WBCs are 11.3, hemoglobin 14, hematocrit 44.2, platelet cou nt is 167,000. He has got 69% neutrophils, 19% lymphocytes. Sodium is 135, potassium 5.0, chloride 99, CO2 is 30, BUN is 14, creatinine 0.98, calcium is 9.2, hemoglobin A1c is 11.5. CK-MB is 6.3. Tr oponin 0.055. Serum total protein is 7.3, albumin 2.9, globulin 3.4, total bilirubin is 1.1, AST 34, ALT 32, alkaline phosphatase is 109. RADIOLOGY: CT angio per HPI. Venogram showed no evidence of DVT. ASSESSMENT: Invasive ductal carcinoma of the right breast. DISCUSSION: The patient's hormone receptors and HER2 are currently pending. The patient will get an outpatient PET scan for complete staging given the size of the mass and then had a significant skin changes that looks like he will likely receive neoadjuvant chemotherapy, followed by surgery and poss ible radiation. He will be seen by Dr. Diaz next week. He was given appointment time and clinic information. Thank you for the consult. We will be happy to take care of this pleasant gentleman.
--- NOTE | 2017-09-02 15:00 | PDOC.CTH ---
Cardiology Progress Note - Subjective EP progress note: Patient seen and evaluated. Doing well overnight. No new cardiac concerns/ complaints. No heart racing, dizziness, or groin access site complications. no stroke symptoms. - Objective Vital Signs Temp Pulse Resp BP Pulse Ox 09/02/17 13:31 101 H 16 93 L 09/02/17 11:35 98.8 F 83 16 117/69 91 L 09/02/17 09:43 100 18 96 09/02/17 08:20 98.7 F 86 16 144/85 H 97 09/02/17 06:39 92 16 99 09/02/17 06:35 92 16 99 09/02/17 04:00 98.7 F 96 16 179/103 H 97 Weight 301 lb 09/01/17 09/02/17 09/03/17 06:59 06:59 06:59 Intake Total 600 600 Output Total 1225 1175 Balance -625 575 - Physical Examination General/Neuro: alert & oriented x3, NAD Neck: carotid US brisk, no JVD present Lungs: CTA, unlabored respirations Heart: RRR Abdomen: NT/ND, soft - Telemetry Telemetry Rhythm: NSR - Labs Result Diagrams: 09/02/17 05:03 09/02/17 07:25 Troponin/CKMB CK-MB (CK-2) 6.3 ng/mL (0-6.6) 08/29/17 17:37 Troponin I 0.055 ng/mL (< 0.028) H 08/29/17 17:37 - Assessment/Plan 1. Typical atrial flutter s/p CTI ablation on 09/01/17. maintaining NSR overnight. On lovenox 100mg BID for stroke prophylaxis. Transitioning to Eliquis 5 mg BID, to be continued for at least 1 month post ablation. Will need prescription upon discharge. Eliquis authorization #s for 1 month supply given to patient. 2. Mildly reduced EF 40-45% with fluid overload- better compensated, managed by cards. 3. EP study results: Successful CTI ablation, abnormal sinus node function with recently administered negative chronotropic agents, normal AV laura & His- purkinje function. No evidence of accessory pathway. Ok for DC by EP. Request follow up at [facility] clinic in 4-6 weeks.
--- NOTE | 2017-09-02 16:52 | PDOC.CTH ---
Cardiology Progress Note - Subjective No new issues or concerns. - Objective Vital Signs Temp Pulse Resp BP Pulse Ox 09/02/17 13:31 101 H 16 93 L 09/02/17 11:35 98.8 F 83 16 117/69 91 L 09/02/17 09:43 100 18 96 09/02/17 08:20 98.7 F 86 16 144/85 H 97 09/02/17 06:39 92 16 99 09/02/17 06:35 92 16 99 Weight 301 lb 09/01/17 09/02/17 09/03/17 06:59 06:59 06:59 Intake Total 600 600 Output Total 1225 1175 Balance -625 -575 - Physical Examination General/Neuro: alert & oriented x3, NAD Neck: no JVD present Lungs: CTA, unlabored respirations Heart: RRR Abdomen: NT/ND Extremities: + edema B (no edema.) - Telemetry Telemetry Rhythm: NSR - Labs Result Diagrams: 09/02/17 05:03 09/02/17 07:25 Troponin/CKMB CK-MB (CK-2) 6.3 ng/mL (0-6.6) 08/29/17 17:37 Troponin I 0.055 ng/mL (< 0.028) H 08/29/17 17:37 - Assessment/Plan 1. Atrial flutter, s/p ablation 2. Breast cancer, male type 3. LV dysfunction. EF at 40-45% PLAN: - May discharge home any time from cardiac perspective. - Will need ischemic work up as outpatient. - Follow up with Dr. Acharya in 1 month. - Will sign off. Please call with any questions.
[2017-09-02] MEDS: Atorvastatin Calcium 40 MG TAB PO SCH (21:22)
--- NOTE | 2017-09-02 23:10 | PRG ---
Pedro Little is doing well today. Oncology has seen him. Outpatient PET scanning this plan. He wi ll need to follow up with Oncology next week to arrange a PET scan, await hormone receptors and Herce ptin status to find definitive care. Axillary ultrasound was negative for metastatic disease. CT an florentino of chest, abdomen was negative for metastatic disease today. The patient has had an ablation for his atrial fibrillation. He is on anticoagulation. Cardiology has released him to be discharged ho me any time. He will need a cardiac stress test as an outpatient prior to any definitive surgery in the future. He probably will need new adjunctive therapy, but will await hormone receptors or Hercep tin status and discuss with Oncology as an outpatient. Dr. Thomas Hope has seen him from a pulmonar y standpoint. The patient is noncompliant on his CPAP. It has been nonfunctional for 3 years and ou tpatient follow up with Pulmonary Medicine would be important preoperatively. He will need eventual right mastectomy, sentinel node biopsy, possible node dissection, but await complete results for [facility] cancer workup. At this point, I will see him as needed. He should follow up in my office in abou t a week and a half to 2 weeks.
--- NOTE | 2017-09-02 23:45 | CON ---
DATE OF CONSULTATION: 09/02/2017 HISTORY OF PRESENT ILLNESS: Mr. Little is a 52-year-old male. He has been identified as having a breast mass. 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 Biopsy showing breast cancer. Further studies are pending. He actually is here for an atrial fibrillation ablation. I was consulted for possible chronic obstructive pulmonary disease and untreated sleep apnea. As he has been told in the past that he has sleep apnea, but his CPAP machine broke several years ago and he has been on CPAP for quite some time. He says sleep study was done here in town. He is diabetic, but he ran out of his medicine. Hemoglobin A1c was 11. He smokes but has never been told he has COPD, does say he gets short of breath occasionally. PAST MEDICAL HISTORY: Remarkable for diabetes, sleep apnea, hypertension, atrial fibrillation, statu s post ablation. SOCIAL HISTORY: He is a smoker. He is not a daily drinker. ALLERGIES: He denies drug allergies. FAMILY HISTORY: Negative for lung disease in early age. REVIEW OF SYSTEMS: Ten-point review of systems otherwise negative. PHYSICAL EXAMINATION: VITAL SIGNS: He is afebrile, heart rate 78, respiratory rate is 12, oximetry is 94 on 2 liters, and blood pressure is 119/72. HEENT: Pupils are equal. Sclerae is anicteric. NECK: Supple, no lymphadenopathy. LUNGS: Distant and clear. HEART: Regular rhythm. S1 and S2 are normal. No murmur. ABDOMEN: Soft and nontender. EXTREMITIES: No clubbing, cyanosis, or edema. BREASTS: Did not do a breast exam. NEUROLOGIC: Grossly nonfocal. LABORATORY DATA: Hemoglobin is 14, white count is 11.3 three days ago, platelets 167 today. Sodium 135, potassium 5, chloride 99, bicarbonate 30, BUN 14, creatinine 0.9. IMPRESSION: 1. ? Chronic obstructive pulmonary disease. 2. Untreated sleep apnea. 3. Status post atrial fibrillation ablation. 4. Breast cancer. PLAN: PFTs. He is already receiving nebulizer medicine. He feels like it helps and I do not believ e that that we will find prohibitive risk to surgery. I will try to locate his sleep study and if I can find it, we will start him on CPAP while he is in [facility]. This is a 70 minute consult, greater than 50% of the time was spent coordinating care on the unit.
[2017-09-03 05:19] LABS: Anion Gap 14 mmol/L (10-20); BUN (Urea Nitrogen) 11 mg/dL (8.4-25.7); Calc. Creatinine Clearance 194 mL/min (70-130); Calcium 8.9 mg/dL (7.8-10.44); Carbon Dioxide 25 mmol/L (22-29); Chloride 99 mmol/L (98-107); Estimated GFR-MDRD Greater than 90; Glucose 181 mg/dL (70-105); Potassium 4.6 mmol/L (3.5-5.1); Sodium 133 mmol/L (136-145)
--- NOTE | 2017-09-03 07:03 | PDOC.FM ---
- Subjective Subjective: Patient doing well this AM. No significant overnight events. He appears apathetic this morning but is answering questions appropriately. Discussed going home today. Explained the need for close follow up with pulmonology, cardiology, oncology, and general surgery. He already has some of the appointments scheduled. He has also scheduled an appointment with PCP on Tuesday. - Objective MAR Reviewed: Yes Vital Signs & Weight: Vital Signs (12 hours) Temp Pulse Resp BP Pulse Ox 09/03/17 03:48 98.5 F 85 19 131/88 93 L 09/02/17 20:00 99.4 F 78 12 94 L 09/02/17 19:46 99.4 F 78 12 119/72 94 L Weight Weight 137.711 kg I&O: 09/01/17 09/02/17 09/03/17 06:59 06:59 06:59 Intake Total 600 600 760 Output Total 1225 1175 600 Balance -625 -575 160 Result Diagrams: 09/02/17 05:03 09/03/17 04:27 EKG Reviewed by me: Yes Radiology Reviewed by me: Yes <Ibis Guzman - Last Filed: 09/03/17 11:00> - Objective Vital Signs & Weight: Vital Signs (12 hours) Temp Pulse Resp BP BP Pulse Ox 09/03/17 13:35 75 16 09/03/17 12:00 98.0 F 77 18 147/65 H 96 09/03/17 08:30 97.7 F 81 22 H 174/90 H 94 L 09/03/17 08:25 97.7 F 81 22 H 09/03/17 07:39 80 12 09/03/17 07:32 92 L 09/03/17 07:31 80 12 09/03/17 03:48 98.5 F 85 19 131/88 93 L Weight Weight 137.711 kg I&O: 09/02/17 09/03/17 09/04/17 06:59 06:59 06:59 Intake Total 600 1000 Output Total 1175 600 Balance -575 400 Result Diagrams: 09/02/17 05:03 09/03/17 04:27 <Zaire Green - Last Filed: 09/03/17 15:17> Phys Exam - Physical Examination Constitutional: NAD HEENT: moist MMs Neck: supple Respiratory: wheezing present Cardiovascular: RRR, no significant murmur Gastrointestinal: soft, no distention, positive bowel sounds trace edema Neurological: non-focal, moves all 4 limbs Psychiatric: normal affect Skin: no rash, cap refill <2 seconds Deviation from normal: large right sided breast mass with inverted nipple and skin changes -: Small hematoma at right groin <Ibis Guzman - Last Filed: 09/03/17 11:00> Dx/Plan (1) Atrial fibrillation with RVR Code(s): I48.91 - UNSPECIFIED ATRIAL FIBRILLATION Status: Acute (2) 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 breast Code(s): C50.921 - MALIGNANT NEOPLASM OF UNSPECIFIED SITE OF RIGHT MALE BREAST Status: Acute (3) CHF (congestive heart failure), NYHA class III Code(s): I50.9 - HEART FAILURE, UNSPECIFIED Status: Acute (4) Diabetes mellitus type II, uncontrolled Code(s): E11.65 - TYPE 2 DIABETES MELLITUS WITH HYPERGLYCEMIA Status: Chronic (5) Acute respiratory failure with hypoxia Code(s): J96.01 - ACUTE RESPIRATORY FAILURE WITH HYPOXIA Status: Acute (6) HTN (hypertension) Code(s): I10 - ESSENTIAL (PRIMARY) HYPERTENSION Status: Acute (7) Tobacco abuse Code(s): Z72.0 - TOBACCO USE Status: Chronic (8) COPD (chronic obstructive pulmonary disease) Status: Chronic - Plan Plan: 1. A-fib/flutter with RVR - Continue carvedilol per cardiology recs - Cardiology consulted; appreciate recs - Monitor on telemetry - PT/OT eval/treat; pt d/c'd from PT to walking program - TSH normal - Patient started on therapeutic lovenox per cardiology; transitioning to eliquis for outpatient - EP consulted; appreciate recs - s/p ablation - SR this AM 2. Grade 2 invasive ductal carcinoma of right breast - U/S guided right breast biopsy showed grade 2 invasive ductal carcinoma - Oncology consulted; appreciate recs - General surgery consulted; appreciate recs - Patient will need cardiac clearance prior to surgery with cardiac stress test as outpatient - Mammogram right breast today showed invasive ductal carcinoma - Will need mammogram of left breast - Appt scheduled to follow with Dr. Diaz next week. Will have PET scan done at that time - Will need outpatient follow up with pulmonology; PFT's as outpatient to further evaluate for COPD - F/u with Dr. Olmos in 2 weeks 3. Acute hypoxic respiratory failure possibly 2/2 new onset CHF - 2 week history of shortness of breath with ADL's consistent with NYHA class III CHF - Echo with EF of 40-45% and evidence of right heart failure - Lasix PO daily - Cardiology consulted; appreciate recs - Continue O2 PRN to keep O2 sats >92%; wean as tolerated - pt may need home O2 - Strict I&O's - Daily weights - CE's trended downward - CTA negative for PE, right pleural effusion noted on CTA - Heart score of 4-5, no prior stents/cath - Patient on AKIN-I and BB - Cardiac rehab eval 4. Possible COPD - No confirmed diagnosis; will need outpatient PFT's - Symptoms consistent with COPD - Echo shows pulmonary HTN - May need home O2; will do home O2 eval - Several week history of productive cough (improving) with bilateral wheezing - JONH duonebs - PRN albuterol nebs - Started on maintenance inhaler - May have cor pulmonale based on results of echo 5. DM type II, uncontrolled - HgA1c >11 - Stopped taking metformin due to GI side effects - Mild SSI - CC diet - Start glipizide daily - ASA daily - Start lisinopril daily - Start high intensity statin - ACHS accuchecks - ASCVD risk score of 20.9%; recommend high dose statin 6. HTN - Not previously diagnosed - Not on HTN medications at home - Started lisinopril and carvedilol for comorbid conditions - Will continue to monitor and adjust medications as necessary 7. 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 Discharge pending home O2 set up. Will discuss with CM. <Ibis Guzman - Last Filed: 09/03/17 11:00> Attending Addendum - Attending Addendum Date/Time: 09/03/17 [id number] I personally evaluated the patient and discussed the management with Dr. Guzman. I agree with the History, Examination, Assessment and Plan documented above with any addition or exceptions noted below. He feels OK. Right breast mass is visible and palpable firm. Grade 2 invasive ductal carcinoma of right breast on biopsy. Cor: RRR with occasional ectopic. NSR restored on monitor following ablation. Qualifies for home O2 based on SaO2 with exercise and hypoxic at rest as well. Plan: d/c home with continuous home Oxygen therapy. Follow up with Gen Surgery, cardiology, Pulmonary, and Oncology. MD Myles <Zaire Green - Last Filed: 09/03/17 15:17>
--- NOTE | 2017-09-03 07:24 | PDOC.EVN ---
Event Note - Event Note Event Note: Called to bedside for evaluation of hematoma at rt groin. 1x1cm. Mild tenderness to palpation. Good pedal pulses. Good plantar/dorsiflexion. Recommend starting with tylenol and ice pack.
[2017-09-03] MEDS: Mometasone/Formoterol 120 PUFF INHALER INH SCH ×2 (07:39→19:35)
[2017-09-03] MEDS: Furosemide 40 MG TAB PO SCH (08:19)
[2017-09-03] MEDS: Lisinopril 10 MG TAB PO SCH (08:19)
[2017-09-03] MEDS: Carvedilol 6.25 MG TAB PO SCH ×2 (08:19→16:58)
[2017-09-03] MEDS: Aspirin 81 mg Enteric Coated Tablet PO SCH (08:19)
[2017-09-03] MEDS: Enoxaparin Sodium 40 MG/0.4 ML SYRINGE SC SCH (08:20)
[2017-09-03] MEDS: Enoxaparin Sodium 100 MG/ML SYRINGE SC SCH (08:20)
[2017-09-03] MEDS: Acetaminophen 325 MG TAB PO SCH ×4 (08:23→20:59)
--- NOTE | 2017-09-03 08:55 | EKG ---
Test Reason : Blood Pressure : / mmHG Vent. Rate : 081 BPM Atrial Rate : 081 BPM P-R Int : 200 ms QRS Dur : 068 ms QT Int : 396 ms P-R-T Axes : 010 -27 258 degrees QTc Int : 460 ms Sinus rhythm with Premature atrial complexes Possible Left atrial enlargement Prolonged QT Abnormal ECG When compared with ECG of 31-AUG-2017 10:11, A Flutter with 2:1 block no longer present. Criteria for Inferior infarct are no longer Present ST no longer depressed in Inferior leads Nonspecific T wave abnormality has replaced inverted T waves in Inferior leads Confirmed by RICCO RAYMUNDO ([id number]) on 09/03/2017 8:55:03 AM Referred By: Confirmed By:RICCO RAYMUNDO
[2017-09-03] MEDS ORDERED: ISOVUE-370 76%-LOCM 1 ML ONE (16:38)
[2017-09-03] MEDS: HumaLOG 300 UNITS/3 ML VIAL SC PRN ×2 (17:27→21:01)
--- NOTE | 2017-09-03 19:12 | PRG ---
DATE OF SERVICE: 09/03/2017 SUBJECTIVE: Mr. Pedro Little remains hypoxemic. OBJECTIVE: VITAL SIGNS: Reportedly, his O2 sat was 81% on room air. I am told by the licensed mental health professional this afternoon his blood pressure was 130/60, sats are 96% on 2 liters, respiratory rate is 20 and heart rate is 74 . He is afebrile. LUNGS: Remarkable for end expiratory wheezes. HEART: Regular rhythm. ABDOMEN: Soft. LABORATORY DATA: There is no lab today except for glucoses and electrolytes, which are unremarkable. Sodium is 133, potassium 4.6, chloride 99, bicarbonate 25, BUN 11 and creatinine 0.85. IMPRESSION: Severe hypoxemia secondary to chronic obstructive pulmonary disease and untreated sleep apnea. I think we need to begin treatment for sleep apnea and see if he will qualify for another dev ice. He said Medicare equipment provided his device, it broke, so he quit wearing it. Says, he was compliant before it broke and if this is true, he would not need another sleep study. If he is nonco mpliant, he will need another sleep study, but at least we can get the sleep study results will nowhe re to place him from a CPAP, BiPAP standpoint. If he should continue with nebulizer treatments, may be the addition of steroids will help with his g as exchange. I would be hesitant to send him home with oxygen at this time because if he goes home with oxygen to wear 24 hours a day, he will lose his job. Hopefully, within a few days, his hypoxemia will be more or less resolved and we can consider dischar ge at that time. We will empirically start him on CPAP at night.
[2017-09-03] MEDS ORDERED: Sodium Chloride 0.9% 10 ML ONE (20:27)
[2017-09-03] MEDS: Atorvastatin Calcium 40 MG TAB PO SCH (20:59)
[2017-09-03] MEDS: Apixaban 5 MG TAB PO SCH (21:00)
[2017-09-03] MEDS ORDERED: Acetaminophen 325 MG TAB PO PRN (23:37)
--- NOTE | 2017-09-03 23:53 | ULT ---
LIMITED RIGHT INGUINAL ULTRASOUND 09/03/17 HISTORY: Right groin bruising and swelling after cardiac catheterization four days ago. TECHNIQUE: Multiplanar palma scale and color doppler images were obtained in a limited ultrasound of the right in guinal region. FINDINGS: There is a large amount of edema. The possible fluid collection measures 4.2 x 1.5 cm in size. There is a hypoechoic region which does not demonstrate internal flow and may represent a small hematoma. T he common femoral artery and vein cannot be definitely seen secondary to the edema. IMPRESSION: There is a fluid collection in the right inguinal region which may represent a hematoma. No obvious f low is seen within it. Please note that the common femoral artery and vein were not visualized and ev aluation for a pseudoaneurysm was incomplete without visualization of these vessels. POS: CHRISTAL
[2017-09-04 00:13] LABS: Hemoglobin 13.2 g/dL (14.0-18.0); Platelet Count 145 thou/uL (130-400)
[2017-09-04] MEDS ORDERED: Sodium Chloride 0.9% 10 ML ONE (04:17)
[2017-09-04 05:11] LABS: Hemoglobin 12.5 g/dL (14.0-18.0); Platelet Count 151 thou/uL (130-400)
[2017-09-04 05:36] LABS: Anion Gap 12 mmol/L (10-20); BUN (Urea Nitrogen) 15 mg/dL (8.4-25.7); Calc. Creatinine Clearance 194 mL/min (70-130); Calcium 9.2 mg/dL (7.8-10.44); Carbon Dioxide 31 mmol/L (22-29); Chloride 96 mmol/L (98-107); Estimated GFR-MDRD Greater than 90; Glucose 226 mg/dL (70-105); Potassium 4.8 mmol/L (3.5-5.1); Sodium 134 mmol/L (136-145)
--- NOTE | 2017-09-04 06:19 | PDOC.FM ---
- Subjective Subjective: Patient asleep on CPAP this AM. No significant overnight events. Patient slept well on CPAP machine. - Objective MAR Reviewed: Yes Vital Signs & Weight: Vital Signs (12 hours) Temp Pulse Resp BP Pulse Ox 09/04/17 04:24 97 09/04/17 04:00 98.4 F 82 18 135/80 97 09/04/17 02:10 71 16 96 09/04/17 00:00 98.1 F 75 18 103/64 95 09/03/17 21:00 98.5 F 73 20 93 L 09/03/17 19:52 98.5 F 73 20 139/69 93 L 09/03/17 19:32 71 16 94 L Weight Weight 134.581 kg I&O: 09/02/17 09/03/17 09/04/17 06:59 06:59 06:59 Intake Total 600 1000 877 Output Total 1175 600 Balance -575 400 877 Result Diagrams: 09/04/17 04:48 09/04/17 04:48 EKG Reviewed by me: Yes Radiology Reviewed by me: Yes <Ibis Guzman - Last Filed: 09/04/17 07:49> - Objective Vital Signs & Weight: Vital Signs (12 hours) Temp Pulse Resp BP Pulse Ox 09/04/17 11:47 97.2 F L 91 16 147/67 H 93 L 09/04/17 08:00 98.2 F 82 16 90 L 09/04/17 07:54 82 16 09/04/17 07:51 98.2 F 81 16 134/67 90 L 09/04/17 07:46 89 L 09/04/17 07:45 82 16 09/04/17 04:24 97 09/04/17 04:00 98.4 F 82 18 135/80 97 09/04/17 02:10 71 16 96 09/04/17 00:00 98.1 F 75 18 103/64 95 Weight Weight 134.581 kg I&O: 09/03/17 09/04/17 09/05/17 06:59 06:59 06:59 Intake Total 1000 1671 Output Total 600 1600 Balance 400 71 Result Diagrams: 09/04/17 04:48 09/04/17 04:48 <Zaire Green - Last Filed: 09/04/17 12:09> Phys Exam - Physical Examination Constitutional: NAD Asleep on CPAP machine HEENT: moist MMs Neck: supple Respiratory: no rales, no rhonchi Cardiovascular: RRR, no significant murmur Gastrointestinal: soft, positive bowel sounds trace edema Neurological: non-focal Deviation from normal: flat affect Skin: no rash <Ibis Guzman - Last Filed: 09/04/17 07:49> Dx/Plan (1) Acute respiratory failure with hypoxia Code(s): J96.01 - ACUTE RESPIRATORY FAILURE WITH HYPOXIA Status: Acute (2) COPD (chronic obstructive pulmonary disease) Status: Chronic (3) Atrial fibrillation with RVR Code(s): I48.91 - UNSPECIFIED ATRIAL FIBRILLATION Status: Resolved (4) 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 Acute hypoxic respiratory failure possibly 2/2 new onset CHF and underlying COPD - 2 week history of shortness of breath with ADL's consistent with NYHA class III CHF - Echo with EF of 40-45% and evidence of right heart failure - Lasix PO daily - Cardiology consulted; appreciate recs - Pulmonology consulted; appreciate recs - Pt evaluated for home O2; multiple attempts were made to wean O2 during hospitalization. O2 sats 81% on RA when sitting. Patient likely has underlying O2 requirement that became apparent during this hospitalization. He has an extensive smoking history, but has not followed with a physician in several years. Lung findings consistent with COPD. Additionally, patient has known MATTI that has been untreated, bc he did not have funding for CPAP as outpatient. Per pulmonology, do not discharge home with home O2. Will continue attempts at titration. Will await pulmonology recs regarding discharge. - Strict I&O's - Daily weights - CE's trended downward - CTA negative for PE, right pleural effusion noted on CTA - Heart score of 4-5, no prior stents/cath - Patient on AKIN-I and BB - Cardiac rehab eval; set up for outpatient cardiac rehab 1. A-fib/flutter with RVR s/p ablation - Continue carvedilol per cardiology recs - Cardiology consulted; appreciate recs - Monitor on telemetry - PT/OT eval/treat; pt d/c'd from PT to walking program - TSH normal - Patient started on therapeutic lovenox per cardiology; transitioning to eliquis for outpatient - EP consulted; appreciate recs - s/p ablation - SR this AM 2. Grade 2 invasive ductal carcinoma of right breast - U/S guided right breast biopsy showed grade 2 invasive ductal carcinoma - Oncology consulted; appreciate recs - General surgery consulted; appreciate recs - Patient will need cardiac clearance prior to surgery with cardiac stress test as outpatient - Mammogram right breast today showed invasive ductal carcinoma - Will need mammogram of left breast - Appt scheduled to follow with Dr. Diaz next week. Will have PET scan done at that time - Will need outpatient follow up with pulmonology; PFT's as outpatient to further evaluate for COPD - F/u with Dr. Olmos in 2 weeks 4. Possible COPD - No confirmed diagnosis; will need outpatient PFT's - Symptoms consistent with COPD - Echo shows pulmonary HTN - May need home O2; will continue attempts at titration as stated above - Several week history of productive cough (improving) with bilateral wheezing - JONH duonebs - PRN albuterol nebs - Started on maintenance inhaler - May have cor pulmonale based on results of echo - Started on methylprednisolone per pulmonology 5. DM type II, uncontrolled - HgA1c >11 - Stopped taking metformin due to GI side effects - Mild SSI - CC diet - Start glipizide daily - ASA daily - Start lisinopril daily - Start high intensity statin - ACHS accuchecks - ASCVD risk score of 20.9%; recommend high dose statin 6. HTN - Not previously diagnosed - Not on HTN medications at home - Started lisinopril and carvedilol for comorbid conditions - Will continue to monitor and adjust medications as necessary 7. 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 <Megan,Ibis - Last Filed: 09/04/17 07:49> Attending Addendum - Attending Addendum Date/Time: 09/04/17 1151 I personally evaluated the patient and discussed the management with Dr. Guzman. I agree with the History, Examination, Assessment and Plan documented above with any addition or exceptions noted below. SaO2 dropped to 77% with walking without Oxygen this am. Patient was examined by me while standing in his room. Lungs: CTA, Cor: RRR. Breast mass unchanged. Swelling in Right groin/proximal thigh noted. CT scan is pending. Will continue CPAP at night and O2/NC as needed in the day as recommended by pulmonary medicine, and observe for improvement. Myles< <Zaire Green - Last Filed: 09/04/17 12:09>
[2017-09-04] MEDS: Mometasone/Formoterol 120 PUFF INHALER INH SCH ×2 (07:54→19:46)
[2017-09-04] MEDS: Furosemide 40 MG TAB PO SCH (08:13)
[2017-09-04] MEDS: Apixaban 5 MG TAB PO SCH ×2 (08:13→21:09)
[2017-09-04] MEDS: Carvedilol 6.25 MG TAB PO SCH ×2 (08:13→16:38)
[2017-09-04] MEDS: HumaLOG 300 UNITS/3 ML VIAL SC PRN ×4 (08:13→21:08)
[2017-09-04] MEDS: Aspirin 81 mg Enteric Coated Tablet PO SCH (08:13)
[2017-09-04] MEDS: Lisinopril 10 MG TAB PO SCH (08:14)
--- NOTE | 2017-09-04 15:04 | PDOC.CTH ---
Cardiology Progress Note - Subjective He had a large bruise on his rightgroin around his insertion site. His hgb dropped some as well. - Objective Vital Signs Temp Pulse Resp BP Pulse Ox 09/04/17 13:42 84 16 09/04/17 11:47 97.2 F L 91 16 147/67 H 93 L 09/04/17 08:00 98.2 F 82 16 90 L 09/04/17 07:54 82 16 09/04/17 07:51 98.2 F 81 16 134/67 90 L 09/04/17 07:46 89 L 09/04/17 07:45 82 16 09/04/17 04:24 97 09/04/17 04:00 98.4 F 82 18 135/80 97 Weight 296 lb 11.2 oz 09/03/17 09/04/17 09/05/17 06:59 06:59 06:59 Intake Total 1000 1671 Output Total 600 1600 Balance 400 71 - Physical Examination General/Neuro: alert & oriented x3, NAD Neck: no JVD present Lungs: CTA, unlabored respirations Heart: RRR Abdomen: NT/ND Extremities: other: (hematoma on right groin, no pulsatiel mass, no bruit.) - Telemetry Telemetry Rhythm: NSR - Labs Result Diagrams: 09/04/17 04:48 09/04/17 04:48 Troponin/CKMB CK-MB (CK-2) 6.3 ng/mL (0-6.6) 08/29/17 17:37 Troponin I 0.055 ng/mL (< 0.028) H 08/29/17 17:37 - Assessment/Plan 1. Atrial flutter, s/p ablation 2. Breast cancer, male type 3. LV dysfunction. EF at 40-45% 4. Right groin hematoma. PLAN: - He had pressure held yesterday and an US showed fluid accumulation likely blood. He had a CT abdomen pelvis done and official read is still pending but preliminary report showed no evidence of psudoaneurysm and presence of a hematoma. - Continue to monitor H&H tomorrow morning and right groin site. - He remains in sinus.
--- NOTE | 2017-09-04 15:07 | CT ---
PRELIMINARY REPORT/[facility]/EMERGENTY AFTER-HOURS PROCEDURE CT Angiography Pelvis With Intravenous Contrast EXAM DATE/TIME: Exam ordered 09/04/2017 1:37 AM CLINICAL HISTORY: 52 years old, male; Pain; Abdominal pain; Other: Inguinal; Patient HX: No previous; Had ablasion card ioversion. Morgan done on , presents with pain to right groin area since tuesday morning. R/O p sueusoaneurysm. No surgeries. TECHNIQUE: Axial computed tomographic angiography images of the pelvis with intravenous contrast using CT angiog jannet protocol. Coronal and sagittal reformatted images were created and reviewed. COMPARISON: No relevant prior studies available. FINDINGS: Aorta: No acute findings. No lower abdominal aortic aneurysm. No dissection. Inferior mesenteric artery: Patent, origin excluded from view. Iliac arteries: No acute findings. Minimal atherosclerotic disease. No occlusion or significant steno sis. Bowel: Normal. No obstruction. No mucosal thickening. Bladder: Normal. No mass. Reproductive: The prostate gland demonstrates nonspecific parenchymal calcifications. Bones/joints: No acute fracture. No dislocation. Soft tissues: There is no large hematoma or pseudoaneurysm in the RIGHT groin. Lymph nodes: There is marked inflammatory stranding within the RIGHT groin with several enlarged reactive lymph nodes. IMPRESSION: 1. There is marked inflammatory stranding within the RIGHT groin with several enlarged reactive lymph nodes. Correlate clinically for cellulitis. 2. There is no large hematoma or pseudoaneurysm in the RIGHT groin. Thank you for allowing us to participate in the care of your patient. Dictated and Authenticated by: Zaire You MD 09/04/2017 2:02 AM Central Time ([place] & [place]) FINAL REPORT CTA PELVIS: HISTORY: This 52-year-old presents with a history of recent inguinal surgery/procedure with pain. Evaluate fo r right groin pseudoaneurysm. FINDINGS: Contrast-enhanced CTA was performed. Two-D and 3D reconstructed images were performed on an [facility] [employer] 3D work station. Images demonstrate extensive inflammatory change in the right groin. This may represent permeative h ematoma versus cellulitis. No evidence of pseudoaneurysm seen in the right inguinal area. Normal fl ow is seen from the right external iliac into the common femoral, superficial femoral, and femoral pr ofunda vessels. IMPRESSION: No evidence of right groin pseudoaneurysm. I concur with the dictation from [facility]. POS: EDGAR
[2017-09-04] MEDS: Atorvastatin Calcium 40 MG TAB PO SCH (21:09)
[2017-09-05] MEDS: HumaLOG 300 UNITS/3 ML VIAL SC PRN ×3 (05:55→18:33)
--- NOTE | 2017-09-05 05:59 | PDOC.FM ---
- Subjective Subjective: No significant overnight events. Patient doing well this AM. Patient resting this AM upon evaluation. Still requiring O2 at rest and with ambulation. - Objective MAR Reviewed: Yes Vital Signs & Weight: Vital Signs (12 hours) Temp Pulse Resp BP BP Pulse Ox 09/05/17 03:58 98.5 F 81 16 159/77 H 92 L 09/05/17 02:18 89 16 93 L 09/05/17 00:00 98.0 F 93 20 137/67 91 L 09/04/17 21:10 98.0 F 93 20 92 L 09/04/17 20:53 98.2 F 87 20 119/63 92 L 09/04/17 19:45 85 16 91 L Weight Weight 131.814 kg I&O: 09/03/17 09/04/17 09/05/17 06:59 06:59 06:59 Intake Total 1000 1671 2009 Output Total 600 1600 3900 Balance 400 71 -1890 Result Diagrams: 09/05/17 06:09 09/04/17 04:48 EKG Reviewed by me: Yes Radiology Reviewed by me: Yes Phys Exam - Physical Examination Constitutional: NAD HEENT: moist MMs Neck: supple Respiratory: wheezing present Cardiovascular: RRR, no significant murmur Gastrointestinal: soft, non-tender, positive bowel sounds Musculoskeletal: no edema, pulses present Neurological: non-focal, moves all 4 limbs Psychiatric: normal affect Skin: no rash, cap refill <2 seconds Dx/Plan (1) Acute respiratory failure with hypoxia Code(s): J96.01 - ACUTE RESPIRATORY FAILURE WITH HYPOXIA Status: Acute (2) COPD (chronic obstructive pulmonary disease) Status: Chronic (3) Atrial fibrillation with RVR Code(s): I48.91 - UNSPECIFIED ATRIAL FIBRILLATION Status: Resolved (4) 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 breast Code(s): C50.921 - MALIGNANT NEOPLASM OF UNSPECIFIED SITE OF RIGHT MALE BREAST Status: Acute (5) CHF (congestive heart failure), NYHA class III Code(s): I50.9 - HEART FAILURE, UNSPECIFIED Status: Acute (6) Diabetes mellitus type II, uncontrolled Code(s): E11.65 - TYPE 2 DIABETES MELLITUS WITH HYPERGLYCEMIA Status: Chronic (7) HTN (hypertension) Code(s): I10 - ESSENTIAL (PRIMARY) HYPERTENSION Status: Acute (8) Tobacco abuse Code(s): Z72.0 - TOBACCO USE Status: Chronic - Plan Plan: Acute hypoxic respiratory failure possibly 2/2 new onset CHF and underlying COPD - 2 week history of shortness of breath with ADL's consistent with NYHA class III CHF - Echo with EF of 40-45% and evidence of right heart failure - Lasix PO daily - Cardiology consulted; appreciate recs - Pulmonology consulted; appreciate recs - Pt evaluated for home O2; multiple attempts were made to wean O2 during hospitalization. O2 sats 81% on RA when sitting. There were some points yesterday when patient was satting low 90's on RA while laying in bed; however, upon walking his O2 fell to mid 70's. Patient likely has underlying O2 requirement that became apparent during this hospitalization. He has an extensive smoking history, but has not followed with a physician in several years. Lung findings consistent with COPD. Additionally, patient has known MATTI that has been untreated, bc he did not have funding for CPAP as outpatient. Will continue attempts at weaning O2. Will await pulmonology recs regarding discharge. - Strict I&O's - Daily weights - CE's trended downward - CTA negative for PE, right pleural effusion noted on CTA - Heart score of 4-5, no prior stents/cath - Patient on AKIN-I and BB - Cardiac rehab eval; set up for outpatient cardiac rehab Right groin pain and swelling - CTA showed marked inflammatory stranding in right groin and enlarged reactive lymph nodes. Possible cellulitis, but no hematoma or pseudoaneurysm - Will repeat H&H this AM - Will correlate clinically with cellulitis A-fib/flutter with RVR s/p ablation - Continue carvedilol per cardiology recs - Cardiology consulted; appreciate recs - Monitor on telemetry - PT/OT eval/treat; pt d/c'd from PT to walking program - TSH normal - Patient started on therapeutic lovenox per cardiology; transitioning to eliquis for outpatient - EP consulted; appreciate recs - s/p ablation - SR this AM Grade 2 invasive ductal carcinoma of right breast - U/S guided right breast biopsy showed grade 2 invasive ductal carcinoma - Oncology consulted; appreciate recs - General surgery consulted; appreciate recs - Patient will need cardiac clearance prior to surgery with cardiac stress test as outpatient - Mammogram right breast today showed invasive ductal carcinoma - Will need mammogram of left breast - Appt scheduled to follow with Dr. Diaz next week. Will have PET scan done at that time - Will need outpatient follow up with pulmonology; PFT's as outpatient to further evaluate for COPD - F/u with Dr. Olmos in 2 weeks Possible COPD - No confirmed diagnosis; will need outpatient PFT's - Symptoms consistent with COPD - Echo shows pulmonary HTN - May need home O2; will continue attempts at titration as stated above - Several week history of productive cough (improving) with bilateral wheezing - JONH duonebs - PRN albuterol nebs - Started on maintenance inhaler - May have cor pulmonale based on results of echo - Started on methylprednisolone per pulmonology DM type II, uncontrolled - HgA1c >11 - Stopped taking metformin due to GI side effects - Mild SSI - CC diet - Start glipizide daily - ASA daily - Start lisinopril daily - Start high intensity statin - ACHS accuchecks - ASCVD risk score of 20.9%; recommend high dose statin HTN - Not previously diagnosed - Not on HTN medications at home - Started lisinopril and carvedilol for comorbid conditions - Will continue to monitor and adjust medications as necessary Tobacco abuse history - Interventional Cardiologist on cessation - Nicotine patch PRN Dispo: Awaiting pulmonology recs regarding discharge home.
[2017-09-05 06:20] LABS: Hemoglobin 13.1 g/dL (14.0-18.0)
[2017-09-05] MEDS: Mometasone/Formoterol 120 PUFF INHALER INH SCH ×2 (08:04→18:25)
--- NOTE | 2017-09-05 08:23 | PRG ---
DATE OF SERVICE: 09/04/2017 Mr. Little's sats have improved dramatically since yesterday. He is 90% this morning on room air an d he is 93% on room air right before lunch. His vital signs remain stable. He is otherwise unchange d. He is stable to continue current care. I have not seen the sleep study. If we can get this from [facility] medical records, perhaps we can get it from Marleny Mahajan at [employer] in [facility], who originally supplied him with his CPAP. I will call her in the morning if we do not have it. At this point, he really does not need to be discharged with oxygen. He will need a nebulizer at [facility] and ideally will need CPAP.
[2017-09-05] MEDS: Lisinopril 10 MG TAB PO SCH (08:41)
[2017-09-05] MEDS: Furosemide 40 MG TAB PO SCH (08:41)
[2017-09-05] MEDS: Carvedilol 6.25 MG TAB PO SCH ×2 (08:42→16:58)
[2017-09-05] MEDS: Apixaban 5 MG TAB PO SCH (08:42)
[2017-09-05] MEDS: Aspirin 81 mg Enteric Coated Tablet PO SCH (08:42)
--- NOTE | 2017-09-05 09:42 | PRG ---
DATE OF SERVICE: 09/05/2017 REFERRING PHYSICIAN: Dr. Acharya SUBJECTIVE: Mr. Little seems to be doing well over the weekend. He developed a right groin bleed a t the catheter insertion site. He drop some hemoglobin units, but did not need a transfusion. The b leeding stopped. There was no evidence of aneurysm by CT. OBJECTIVE DATA: VITAL SIGNS: Blood pressure 142/86, heart rate 79. Temperature 98.5 degrees Fahrenheit, oxygen satu ration is 94% on room air. GENERAL: He is alert and oriented man in no apparent distress with elevated BMI. NECK: Supple. Slight jugular venous distention. LUNGS: No crackles in the lungs. HEART: Heart sounds are regular rate and rhythm. No murmur or gallop. ABDOMEN: Benign. Bowel sounds positive. EXTREMITIES: Lower extremities without edema, clubbing or cyanosis. DATABASE: Weight reduced to 290 current, was 306 on admission. LABORATORY DATA: The hemoglobin today 13.1, coming up in 12.5 yesterday, the lowest. ASSESSMENT AND PLAN: Mr. Little is a 52-year-old man with history of new onset heart failure with m ild reduced left ventricular systolic function as well as atrial flutter with RVR on presentation. H e underwent YURIY and a very difficult ablation of the cavotricuspid isthmus on 09/01/2017. A couple d ays later developed a large hematoma and the bleeding stopped with compression. There is no evidence of a pseudoaneurysm present. He is on blood thinner medication. Currently, appears to be stable. The groin is without further worsening of the swelling. A soft hematoma was present only. Hemoglobi n appears to be stable. I discussed with Dr. Acharya, it seems reasonable for him to be discharged. Consider evaluating for recurrent atrial arrhythmias in a month and take him off anticoagulants at that time.
[2017-09-05] MEDS ORDERED: Spiriva 18 MCG CAP (Box of 5 Caps) INH SCH (11:53)
--- NOTE | 2017-09-05 12:12 | ADD-PRG ---
DATE OF SERVICE: 09/05/2017 This is an addendum to the note of Dr. Ibis Guzman. Mr. Little is a pleasant 52-year-old black male patient with new onset heart failure. He also likel y has significant COPD as well as pulmonary hypertension. He has a history of untreated obstructive sleep apnea as well. He has a 90% room air pulse ox, but with activity his pulse ox drops into the 7 0s and 80s. He will likely need home O2. After discharge he will need further ischemic workup with Cardiology. I also suggested we add Spiriva to his current regimen.
--- NOTE | 2017-09-05 12:26 | PRG ---
DATE OF SERVICE: 09/05/2017 Mr. Little has no complaints. He says he feels great. He is afebrile. He loved sleeping with CPAP last night. PHYSICAL EXAMINATION: VITAL SIGNS: Heart rate 80, respiratory rate is 19, oximetry is 91-94 on room air. LUNGS: Lungs are clear with the exception of end-expiratory wheezes. I have explained to him it is imperative that he does not smoke when he leaves. HEART: Regular rhythm. ABDOMEN: Abdomen is soft. IMPRESSION: Hypoxemia secondary to combination of chronic obstructive pulmonary disease and untreate d sleep apnea, clinically improved with more treatment of his chronic obstructive pulmonary disease a nd empiric CPAP. We need to contact his durable medical equipment provider in [place] and see if he will qualify for a nother CPAP device based on his old study. Other issues include diabetes, anticoagulation with a adalberto ast mass that is malignant.
[2017-09-05 16:31] VITALS: BP 130/82; TEMP 98.4
[2017-09-05] MEDS ORDERED: Ipratropium Bromide 2.5 ml Neb NEB SCH (22:00)
[2017-09-06] MEDS ORDERED: Spiriva 18 MCG CAP (Box of 5 Caps) INH SCH (07:00)
--- NOTE | 2017-09-06 11:52 | DIS-2 ---
DATE OF ADMISSION: 08/29/2017 DATE OF DISCHARGE: 09/05/2017 ADMITTING ATTENDING: Dr. Thong Can. DISCHARGE ATTENDING: Dr. Reddy Roa. RESIDENT: Dr. Ibis Guzman. CONSULTATIONS: 1. Cardiology, Dr. Cortez Acharya. 2. Electrophysiology, Dr. Jose Campuzano. 3. General surgery, Dr. Terrance Olmos. 4. Oncology, Dr. Sadia Diaz. 5. Pulmonology, Dr. Thomas Hope. 6. Cardiac rehabilitation. PROCEDURES: 1. Chest x-ray showed focal opacity in right mid lung, which may represent atelectasis versus possible small amount of thickening and fluid in the minor fissure. 2. Chest/thorax CTA showed no evidence of pulmonary embolism. There was a right-sided pleural effusion. Bilateral gynecomastia with questionable right breast mass. 3. Venogram. No evidence of DVT in either lower extremity. 4. Breast ultrasound showed BI-RADS 4 suspicious abnormality. Further workup recommended with the right breast biopsy. 5. Breast biopsy ultrasound showed grade II invasive ductal carcinoma. 6. Echocardiogram showed mildly increased left ventricular size with ejection fraction estimated at 40%-45%. There is some mild paradoxical septal motion compatible with right heart overload. Patient was tachycardic during this time. He had a moderately enlarged right ventricle cavity. Moderately enlarged right atrium size. Structurally normal aortic valve with no significant stenosis or regurgitation. There is moderate tricuspid regurgitation. Pulmonary arterial pressure estimated at 42 mmHg systolic. IVC was dilated. 7. YURIY showed no intracardiac clots. Upper normal left atrial size. Near normal left ventricular function. Mild tricuspid regurgitation and mild mitral regurgitation. 8. Successful cavotricuspid isthmus ablation. 9. Chest x-ray #2 shows small left pleural effusion, mild cardiomegaly, mild pulmonary vascular congestion, all which are suggestive of mild congestive heart failure. There is subsegmental atelectasis or scar close to the right minor fissure. 10. Compression ultrasound, small fluid collection in the right inguinal region which may represent hematoma. No obvious flow was seen within it. The common femoral artery and vein were not visualized and evaluation for pseudoaneurysm was incomplete without visualization of those vessels. 11. CT angiography of pelvis with IV contrast. No evidence of right groin pseudoaneurysm. PRIMARY DIAGNOSES: 1. New onset atrial flutter, status post ablation. 2. Acute hypoxic respiratory failure, possibly secondary to new onset congestive heart failure and underlying chronic obstructive pulmonary disease. 3. New onset congestive heart failure with ejection fraction visualized at 40%- 45%. 4. Grade II invasive ductal carcinoma of right breast. 5. Clinically evident chronic obstructive pulmonary disease with evidence of pulmonary arterial hypertension. 6. Untreated obstructive sleep apnea. 7. Uncontrolled type 2 diabetes mellitus. 8. Hypertension. 9. Tobacco abuse history. DISCHARGE MEDICATIONS: 1. Eliquis 5 mg oral twice daily. 2. Aspirin 81 mg oral daily. 3. Atorvastatin calcium 40 mg oral at bedtime. 4. Carvedilol 6.25 mg oral twice daily with meals. 5. Furosemide 40 mg oral daily before food. 6. Glipizide 5 mg oral in the morning with breakfast. 7. Lisinopril 10 mg oral daily. 8. Dulera 100 mcg/5 mcg inhaler 2 puffs inhalation twice daily. 9. Spiriva 18 mcg inhalation daily. DISCONTINUED MEDICATIONS: Metformin 250 mg oral twice daily was discontinued. HISTORY OF PRESENT ILLNESS AND HOSPITAL COURSE: This is a 52-year-old male with past medical history of diabetes mellitus type 2, not currently on any medications that presents with a 2-month history of lower extremity swelling. 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 Elevation of his feet did improve the swelling. The patient denied any erythema or pain in lower extremities except for when wearing his work boots. The patient also endorses shortness of breath even with activities of daily living that has been present for the past 2 weeks. He had never experienced shortness of breath to this degree previously. The patient does state that he is a tobacco user. He has smoked at least 1 pack per day for many years, but since 08/22/2017, has been unable to smoke due to the fact that he is too short of breath. The patient denied any associated chest pain, nausea, vomiting, diarrhea or diaphoresis. He denies orthopnea or PND. The patient states that he just took his DMV physical in May and was not noted to have any problems at that time. He has not followed with his PCP in over 3 years. He is supposed to be taking metformin, but has been noncompliant with medication due to GI side effects. Patient also has a history of MATTI that was diagnosed years ago. He has not been on CPAP. The patient reports he quit drinking around . The patient does endorse having a cough productive of green sputum over the last 2 weeks. He states that this is improving. The patient does not currently have a PCP. He was following with Dr. Hampton several years ago. Patient was admitted to our service. Cardiology was consulted and he was started on carvedilol for rate control of atrial flutter. However, patient continued to have problems with elevated heart rate, particularly when standing. Thus Electrophysiology was consulted. Dr. Campuzano evaluated the patient and performed a YURIY after TTE was already performed to evaluate whether or not patient would be a good candidate for ablation. Based on TTE echocardiogram, the patient did have a reduced ejection fraction of 40%-45% with evidence of elevated pulmonary arterial pressures indicating new onset congestive heart failure. YURIY did not show any evidence of clots and thus patient was taken for an ablation by Dr. Campuzano. A cavotricuspid isthmus ablation was successfully performed. The patient remained hospitalized after that time and there is no evidence on telemetry that the patient converted back into atrial flutter. He remained in normal sinus rhythm with rate control. During this hospitalization, the patient was also noted to have a right breast mass which he said has been present for several months. This was further evaluated with a right breast ultrasound, which looked suspicious for malignancy. Thus, a right breast biopsy was performed and was positive for invasive ductal carcinoma. Oncology was consulted along with General Surgery. It was determined that the patient would need further clearance before any surgical interventions were performed. Per Cardiology, they want to do a stress test outpatient to clear the patient from a cardiac standpoint. From a pulmonology standpoint, Dr. Hope did follow the patient throughout this hospital stay. He was started on steroids during his hospital stay as he had clinically evident COPD and did not appear to be an exacerbation; however, he was requiring oxygen, which he had not previously required prior to this hospitalization. It is likely that patient does have some underlying COPD that is undiagnosed and he also had untreated obstructive sleep apnea, therefore he might have an oxygen requirement that was just noted due to the fact that he presented to the hospital. However, we were able to titrate the patient off of oxygen prior to discharge home and he was encouraged to follow very closely with Pulmonology to ensure that his respiratory status stayed stable. The patient was also counseled on smoking cessation during this hospitalization. He was put on CPAP overnight, which did seem to help his hypoxia to a great degree. An old sleep study was used to get the CPAP machine overnight in hospital; however, since it is several years old, we are unable to get a new one for patient to have at home and he will need to have this sleep study repeated as an outpatient. The patient did remain stable throughout the course of his hospital stay. He had several consults and evaluations for this breast cancer as well as for his cardiac atrial flutter and new onset heart failure. Cardiology did not want to do any further workup while here in the hospital. The patient was able to be weaned off of oxygen prior to discharge home, but he will need to follow closely with Pulmonology. From an Oncology and general surgery standpoint, further workup will be done as an outpatient to further evaluate breast mass and proceed with potential mastectomy for invasive ductal carcinoma of the right breast. Patient was started on several medications during this hospital stay to include an AKIN inhibitor and beta halima for congestive heart failure as well as for rate control purposes. He was also started on statin for his diabetes as well as some presumed underlying coronary artery disease that needs to be further evaluated. The patient was started on diabetic medication. We opted to do oral sulfonylurea at this time as the patient was not tolerating metformin. He will need to follow up very closely with primary care physician as he has several newly diagnosed chronic diseases that need to be further evaluated and managed. This was discussed with the patient at length and he was in understanding and agreeable with the plan. DISPOSITION: Stable. DISCHARGE INSTRUCTIONS: 1. Location: Home. 2. Diet: Consistent carbohydrate diet, heart healthy diet and fluid restriction diet. 3. Activity: As tolerated. 4. Followup: The patient is to follow up with cardiac rehab on 09/06/2017 at 11:00 a.m. Additionally, he is to follow with Dr. Olmos, the general surgeon on the at 9:00 a.m. He has an appointment scheduled with Dr. Cortez Acharya within 10 days of discharge and he is to follow up with Dr. Campuzano within 3-4 weeks to be further evaluated for his atrial flutter status post ablation. The patient is to follow up with Dr. Diaz in 10 days and he is to follow up with Dr. Hope in 10 days as well. Prior to being discharged, the patient had an appointment scheduled with his new primary care physician, Dr. Hampton who he followed with 3 years ago. He was counseled very heavily on making sure to keep these appointments and follow accordingly. He is in understanding and agreeable with that plan. TIFFANIE
--- NOTE | 2017-09-12 07:03 | PQF ---
DARIO SCHILLINGSOL [id number] [facility]-284 [id number] CLINICAL DOCUMENTATION CLARIFICATION FORM: POST DISCHARGE DATE: 09/12/2017 ATTN: Dr. Roa Please exercise your independent, professional judgment in responding to the clarification form. Clinical indicators are provided on the bottom of this form for your review Please check appropriate box(s): HEART FAILURE: A. TYPE: [ ] Systolic / HFrEF [ ] Diastolic / HFpEF [ ] Combined Systolic / Diastolic B. ACUITY [ ] Acute [ ] Acute on Chronic [ ] Chronic [ ] Other diagnosis (please specify) [ ] Unable to determine In addition, please specify: Present on Admission (POA): [ ] Yes [ ] No [ ] Unable to determine For continuity of documentation, please document condition throughout progress notes and discharge summary. Thank You. CLINICAL INDICATORS - SIGNS / SYMPTOMS / LABS (per H&P/progress notes) Ejection Fraction =40-45 % Lower extremity swelling. Shortness of breath. BNP 209.7. Arrhythmia--tachycardia Acute respiratory failure with hypoxia. New onset congestive heart failure. RISKS: Atrial fibrillation with RVR. Morbid obesity. Hypertension TREATMENTS: IV Lopressor. Cardiac monitoring / telemetry. PO Lasix. Oxygen. Cardiac ablation (This form is maintained as a part of the permanent medical record) 2014 [employer] All Rights Reserved Geena [email or web address] [phone] MTDD
== END 2017-09-05 19:29 | disposition home or self-care (01) | DRG 273 ==
LOC: ERS 10:33 → 2NO 12:00
PROVIDERS: ADMIT Family Medicine; ATTEND Family Medicine
PROC: 0HBT3ZX Excision of Right Breast, Percutaneous Approach, Diagnostic (ICD-10-PCS; 2017-08-30)
PROC: 02583ZZ Destruction of Conduction Mechanism, Percutaneous Approach (ICD-10-PCS; principal; 2017-09-01)
PROC: 02K83ZZ Map Conduction Mechanism, Percutaneous Approach (ICD-10-PCS; 2017-09-01)
DX: I48.92 Unspecified atrial flutter (principal); J96.01 Acute respiratory failure with hypoxia; Z68.41 Body mass index [BMI] 40.0-44.9, adult; E66.01 Morbid (severe) obesity due to excess calories; I27.20 Pulmonary hypertension, unspecified; E11.65 Type 2 diabetes mellitus with hyperglycemia; I50.9 Heart failure, unspecified; I48.91 Unspecified atrial fibrillation; C50.921 Malignant neoplasm of unspecified site of right male breast; G47.33 Obstructive sleep apnea (adult) (pediatric); I10 Essential (primary) hypertension; E78.00 Pure hypercholesterolemia, unspecified; J44.9 Chronic obstructive pulmonary disease, unspecified; F17.210 Nicotine dependence, cigarettes, uncomplicated; Z91.14 Patient's other noncompliance with medication regimen
CPT/HCPCS: 19083; 36415; 36416; 71045; 71046; 71275; 72191; 76936; 76942; 76999; 80048; 80053; 80061; 80306; 82550; 82553; 83036; 83690; 83880; 84443; 84484; 85014; 85018; 85025; 85049; 85379; 85520; 88305; 88341; 88342; 92960; 93005; 93010; 93306; 93312; 93613; 93621; 93623; 93653; 93798; 93970; 94640; 94660; 94664; 94760; 96361; 96365; 96372; 96375; 96376; A4216; C1730; C1769; G8978-GP-CK; G8979-GP-CK; G8980-GP-CK; G8987-GO-CI; G8988-GO-CI; G8989-GO-CI; J0282; J1265; J1644; J1650; J2001; J2250; J2704; J2920; J3010; J3475; J7620

== ENCOUNTER 2017-09-20 15:10 | Outpatient (CLI) | payer OTHER | END 2017-09-20 15:11 | disposition home or self-care (01) | LOC: BICMAMMO 15:10 | PROVIDERS: ATTEND Internal Medicine Medical Oncology | DX: C50.929 Malignant neoplasm of unspecified site of unspecified male breast (principal); C50.921 Malignant neoplasm of unspecified site of right male breast | CPT/HCPCS: 77066; G0279 ==

== ENCOUNTER 2017-09-22 08:48 | Outpatient (CLI) | payer OTHER ==
--- NOTE | 2017-09-22 11:19 | CT ---
CT CHEST AND ABDOMEN AND PELVIS: CLINICAL HISTORY: Malignant neoplasm central portion of the right breast. COMPARISON: Reference is made to prior CT abdomen and pelvis 09/04/[address] thorax 08/29/17. FINDINGS: Spiculated mass of the right chest wall with overlying skin thickening of the areolar region present compatible with the patient's known history of malignancy. There are enlarged right axillary lymph n odes with indistinct margins, difficult to reliably assess due to peripheral location and artifactual increased density of this region due to contact with the CT gantry. There are nonspecific ground-gl ass densities seen within the right lung. No suspicious nodule or mass of the pulmonary parenchyma o therwise depicted. No effusion. There is mild scattered vascular disease. No focal hepatic lesion. Borderline sized parveen hepatis lymph node is present. Focal wall prominence of the right hemicolon co uld relate to contraction, or a mural based lesion. Spleen and pancreas are unremarkable. No adrenal mass. There is a focal hypodensity of the central aspect of the right kidney that may represent a p arapelvic cyst, although is incompletely evaluated on the basis of this exam. There is patchy increa sed density involving the right aspect of the L2 vertebral body. IMPRESSION: 1. Evidence of right breast malignancy with adjacent right axillary adenopathy. 2. Patchy increased density of the right aspect of L2 vertebral body for which metastatic disease is the diagnosis of exclusion. Whole body bone scan is warranted to further evaluate. 3. Focal wall prominence of the right hemicolon could relate to contraction, or a mural based lesion ..Recommend followup with colonoscopy. POS: [facility]
== END 2017-09-22 08:49 | disposition home or self-care (01) ==
LOC: CT 08:48
PROVIDERS: ATTEND Internal Medicine Medical Oncology
DX: C50.121 Malignant neoplasm of central portion of right male breast (principal); R59.0 Localized enlarged lymph nodes
CPT/HCPCS: 71260; 74177

== ENCOUNTER 2017-10-31 07:18 | Day surgery (SDC) | payer OTHER ==
[2017-10-31 08:21] LABS: Hemoglobin 14.4 g/dL (14.0-18.0); Mean Corpuscular HGB CONC 33.7 g/dL (32.0-36.0); Mean Corpuscular Hemoglobin 30.3 pg (27.0-31.0); Mean Corpuscular Volume 90.1 fl (80.0-94.0); Mean Platelet Volume 7.1 fL (7.4-10.4); Platelet Count 196 thou/uL (130-400); RBC Distribution Width 12.8 % (11.5-14.5); Red Blood Cell (RBC) Count 4.73 mill/uL (4.70-6.10); White Blood Cell (WBC) Count 12.4 thou/uL (4.8-10.8)
--- NOTE | 2017-10-31 08:50 | HP ---
HISTORY OF PRESENT ILLNESS: Mr. 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 He had atrial fibrillation with ablation and was on anticoagulation, dis continued Eliquis 4 days ago and did not resume it again. He has a past history of sleep apnea with CPAP malfunction for 3-4 years, not using that at home. He has comorbidities of diabetes, hypertensi on, elevated cholesterol, obesity. He had a retroareolar mass and underwent biopsy of right breast o n 08/30/[address] Farmer revealing ER positive 80%, AL receptor positive 50%, Ki-67 high 38%, HER-2 positive 3+ with a grade II invasive ductal carcinoma. CT scan of the abdomen and pelvis, chest, 07/2017, revealed the right breast malignancy with some adjacent lymphadenopathy, right with some inc reased density in the right aspect of L2 vertebral body and bone scan was recommended. There are chetna e right colon thickening wall and colonoscopy was recommended. On 08/30/2017, ultrasound breast reve als for biopsy performed revealing the breast mass. On 08/29/2017, dedicated ultrasound revealed 3.3 x 4.8 x 4.3 cm breast mass. Mammography was performed, Marlee Machado, 09/20/2017 reveals findings consistent with right breast cancer with left gynecomastia. Echocardiogram, 08/30/2017, 40%-45% eje ction fraction, enlarged right atrium, moderately enlarged RV. ALLERGIES: None. TOBACCO: None. ALCOHOL: None. MEDICATIONS: Metformin discontinued in the past, glipizide 5 mg a.m. with meals, sliding scale insul in, lisinopril 10 mg a day, Lasix 40 mg a day, Coreg 6.25 mg b.i.d., aspirin 81 mg a day, Lipitor 40 mg at bedtime, DuoNeb. PHYSICAL EXAMINATION: VITAL SIGNS: 130/77, 76, 97 degrees, 273 pounds, 69 inches, 40 BMI. HEENT: Unremarkable. LUNGS: Clear to auscultation, no wheezing. CARDIAC: Regular rate and rhythm. ABDOMEN: Soft, obese, nontender. EXTREMITIES: Unremarkable. BREAST: Left breast masses, both axilla without palpable abnormalities. Right breast mass 4 cm diam eter, retroareolar, fixed areolar nipple. SKIN: No skin ulcerations. ASSESSMENT AND PLAN: 1. Right breast cancer. We will plan MediPort placement early next week. He has stopped his Eliqui s four days ago and this should be of no issue. Patient will leave the MediPort access in place for chemotherapy that day. 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 2. Morbid obesity. 3. History of atrial fibrillation, anticoagulation discontinued. 4. History of sleep apnea. 5. Diabetes mellitus.
[2017-10-31] MEDS ORDERED: Bupivacaine HCl 0.5%/Epinephrine 1:200,000/PF 30 ml Vial ONE (10:08)
[2017-10-31] MEDS ORDERED: CEFAZOLIN/Water 2 GM/20 ML SYRINGE ONE (10:08)
[2017-10-31] MEDS ORDERED: Lidocaine 2% 10 ML INJ ONE (10:08)
[2017-10-31] MEDS ORDERED: Fentanyl 100 MCG/2 ML VIAL ONE (10:27)
[2017-10-31] MEDS ORDERED: Midazolam HCl 2 mg/2 ml Vial ONE (10:27)
[2017-10-31] MEDS ORDERED: Lidocaine 1% PF 5 ML VIAL ONE (12:21)
[2017-10-31] MEDS ORDERED: PHENYLEPHRINE-NS 100 MCG/ML 10 ML SYRINGE ONE (12:21)
[2017-10-31] MEDS ORDERED: PROPOFOL 200 MG/20 ML VIAL ONE (12:21)
--- NOTE | 2017-10-31 14:03 | RAD ---
CHEST ONE VIEW: History: Mediport insertion. Comparison: None. FINDINGS: Port-a-cath has been placed with tip at the SVC. Atelectatic changes in both lung bases. Heart size i s normal. IMPRESSION: Uncomplicated placement of [id number]. No pneumothorax. POS: [facility]
--- NOTE | 2017-11-01 14:51 | OP ---
PREOPERATIVE DIAGNOSIS: Male right breast cancer. POSTOPERATIVE DIAGNOSIS: Male right breast cancer. PROCEDURE: Left subclavian vein MediPort, standard. Fluoroscopy used. SURGEON: Terrance Olmos MD ANESTHESIA: Intravenous sedation of local 0.5% Marcaine with epinephrine 30 ml mixed with 2% Xylocai ne 10 mL. DESCRIPTION OF PROCEDURE: The patient was taken to the operating room in supine position under anest hesia. Neck and chest were prepared with ChloraPrep, draped in routine fashion. Infraclavicular lef t approach was used to cannulate the subclavian vein, J-wire threaded. Trocar catheter removed. ___ __ (00:33) enlarged sharply (00:34) subcutaneous tissue and subcutaneous pocket created to acco mmodate the MediPort. Dilator and pull-away sheath were placed over the J-wire into the subclavian v ein and superior vena cava under fluoroscopic visualization. Dilator and J-wire were removed. Evon ter was placed through the pull-away sheath and pull-away sheath removed. Fluoroscopically, catheter tip was placed in the optimal position in the superior vena cava and catheter tailored to length to get into the MediPort, and the MediPort was placed in subcutaneous pocket, secured with 2 interrupted sutures of 3-0 Prolene. Subcutaneous tissues were approximated with 3-0 Monocryl, skin with subderm al 4-0 Monocryl and DermaGlue applied. MediPort accessed with a Schafer needle, aspirated blood, and f lushed with heparinized saline solution. Sterile dressings were applied. As stated above, subcutane ous tissue was approximated with 3-0 Monocryl, skin with subdermal 4-0 Monocryl, and DermaGlue applie d.
== END 2017-10-31 12:30 | disposition home or self-care (01) ==
LOC: SDC 07:18
PROVIDERS: ATTEND Specialist
PROC: B5181ZA Fluoroscopy of Superior Vena Cava using Low Osmolar Contrast, Guidance (ICD-10-PCS; principal; 2017-10-31)
PROC: 02HV33Z Insertion of Infusion Device into Superior Vena Cava, Percutaneous Approach (ICD-10-PCS; principal; 2017-10-31)
DX: C50.121 Malignant neoplasm of central portion of right male breast (principal); E10.9 Type 1 diabetes mellitus without complications; F17.210 Nicotine dependence, cigarettes, uncomplicated; I48.91 Unspecified atrial fibrillation; G47.30 Sleep apnea, unspecified; E78.00 Pure hypercholesterolemia, unspecified; E66.01 Morbid (severe) obesity due to excess calories; Z68.41 Body mass index [BMI] 40.0-44.9, adult; Z79.4 Long term (current) use of insulin; Z79.82 Long term (current) use of aspirin; Z79.899 Other long term (current) drug therapy; Z17.0 Estrogen receptor positive status [ER+]
CPT/HCPCS: 36415; 36416; 71045; 85027; C1788; J0670; J1642; J2001; J2250; J2704; J3010

== ENCOUNTER 2018-02-09 13:49 | Day surgery (SDC) | payer OTHER, SELFPAY ==
[2018-02-09 14:25] VITALS: BP 107/53; TEMP 98.3
[2018-02-09] MEDS ORDERED: TRASTUZUMAB IVPB SCH (14:30)
[2018-02-09] MEDS ORDERED: SODIUM CHLORIDE 0.9% IVPB SCH (14:30)
[2018-02-09] MEDS ORDERED: Sodium Chloride 0.9% 20 ML ONE (14:55)
== END 2018-02-09 15:40 | disposition home or self-care (01) ==
LOC: ONC/OP 13:49
PROVIDERS: ATTEND Internal Medicine Medical Oncology
DX: Z51.11 Encounter for antineoplastic chemotherapy (principal); C50.121 Malignant neoplasm of central portion of right male breast; E11.9 Type 2 diabetes mellitus without complications; I10 Essential (primary) hypertension; G47.33 Obstructive sleep apnea (adult) (pediatric); E66.01 Morbid (severe) obesity due to excess calories; I48.91 Unspecified atrial fibrillation; F17.200 Nicotine dependence, unspecified, uncomplicated; Z79.84 Long term (current) use of oral hypoglycemic drugs; Z79.899 Other long term (current) drug therapy
CPT/HCPCS: 96413; A4216; J1642; J7050; J9355

== ENCOUNTER 2018-02-16 08:11 | Outpatient (CLI) | payer SELFPAY ==
[2018-02-16] MEDS ORDERED: Gadobenate Dimeglumine 529 MG/1 ML (20ML VIAL) ONE (09:00)
--- NOTE | 2018-02-16 17:33 | MRI ---
MRI OF THE LUMBAR SPINE WITH AND WITHOUT IV CONTRAST 02/16/18 PROVIDED CLINICAL HISTORY: Breast cancer, abnormality on CT scan at L2. FINDINGS: Lumbar alignment appears normal. Vertebral body heights and intervertebral disc space heights are pre served. There is an ill-defined area of diminished T1 signal intensity and diminished T2 signal inten sity within the L2 vertebral body right of the midline, demonstrating patchy central and peripheral c ontrast enhancement. The CT features of this process and MR characteristics do not suggest a hemangio ma. Regional marrow signal appears otherwise normal. The conus medullaris is normal in signal and ter minates at an appropriate level. The visualized extraspinal soft tissues demonstrate an unremarkable MR appearance. L2 lesion measures about 2.5 cm in greatest transverse dimension and about 2.1 cm in c raniocaudal dimension. There is significant central canal or foraminal narrowing apparent throughout. IMPRESSION: Enhancing lesion in the L2 vertebral body, suspicious for metastatic focus. POS: [facility]
== END 2018-02-16 08:12 | disposition home or self-care (01) ==
LOC: SCSMRI 08:11
PROVIDERS: ATTEND Internal Medicine Medical Oncology
DX: C50.929 Malignant neoplasm of unspecified site of unspecified male breast (principal); M48.8X4 Other specified spondylopathies, thoracic region
CPT/HCPCS: 72158; A9579

== ENCOUNTER 2018-02-16 12:11 | Day surgery (SDC) | payer OTHER ==
[2018-02-16] MEDS ORDERED: Sodium Chloride 0.9% 20 ML ONE (12:18)
[2018-02-16 12:22] VITALS: BP 131/63; TEMP 97.7
[2018-02-16] MEDS ORDERED: TRASTUZUMAB IVPB SCH (12:30)
[2018-02-16] MEDS ORDERED: SODIUM CHLORIDE 0.9% IVPB SCH (12:30)
== END 2018-02-16 13:57 | disposition home or self-care (01) ==
LOC: ONC/OP 12:11
PROVIDERS: ATTEND Internal Medicine Medical Oncology
DX: Z51.11 Encounter for antineoplastic chemotherapy (principal); C50.121 Malignant neoplasm of central portion of right male breast
CPT/HCPCS: 96413; A4216; J1642; J7050; J9355

== ENCOUNTER 2018-02-22 06:29 | Day surgery (SDC) | payer OTHER ==
--- NOTE | 2018-02-14 15:09 | HP ---
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 Biopsy on 08/30/[address] Farmer, Radiology, revealed ER positive 80%, HI receptor positive 50%, Ki-67 high 38%, HER-2 positive 3+ with a grade 2 invasive ductal cell carci noma. CAT scan of abdomen, pelvis, and chest on 09/22/2017, revealed a right breast malignancy with some adjacent lymphadenopathy with some increased density in the right aspect of L2 vertebral body an d bone scan was recommended. Ultrasound evaluation revealed this mass to be 3.3 x 4.8 x 4.3 cm peria reolar. Mammography, Osler Onia on 09/20/2017, reveals findings consistent with breast cancer w ith left gynecomastia. Echocardiogram on 08/30/2017, 40-45% ejection fraction, enlarged right atrium enlarged RV, history of MATTI without CPAP use. History of atrial fibrillation with ablation. Eliqui s discontinued. On 10/2017, followed by Dr. Acharya, he is scheduled for repeat echocardiogram next week. ALLERGIES: None. TOBACCO: None. ALCOHOL: None. MEDICATIONS: Chemotherapy, TCH, , docetaxel, Herceptin 6 mg/kg q.3 weeks, atorvastatin 40 mg a day, carvedilol 6.25 mg a day, Compazine 10 mg a day, dexamethasone 4 mg completed cycle, diazepam 5 mg at bedtime for sleep, furosemide 40 mg a day, glipizide ER 5 mg extended release every day, lisino pril 10 mg a day, Colp as needed for pain, Zofran as needed. SOCIAL HISTORY: Tobacco abuse cessation. Alcohol socially. PAST SURGICAL HISTORY: Cardiac ablation. REVIEW OF SYSTEMS: [place] point otherwise noncontributory. No cardiac symptoms. ASSESSMENT AND PLAN: 1. Right breast cancer has complete chemotherapy on 01/24/2018. Plan: Right mastectomy, sentinel n ode biopsy and no dissection later this month. 2. Atrial fibrillation history, off anticoagulation. Echocardiogram results noted 08/2017. Echocar diogram scheduled with Dr. Acharya next week. 3. Morbid obesity, 282 pounds, 5 feet and 11 inches. 4. Sleep apnea. 5. Diabetes. 6. Hypertension. 7. History of atrial fibrillation, status post successful ablation, off anticoagulation.
[2018-02-21 15:20] VITALS: BMI 39.2
[2018-02-22 07:57] LABS: Hemoglobin 11.2 g/dL (14.0-18.0); Red Blood Cell (RBC) Count 3.28 mill/uL (4.70-6.10); White Blood Cell (WBC) Count 8.5 thou/uL (4.8-10.8)
[2018-02-22] MEDS ORDERED: CEFAZOLIN/Water 2 GM/20 ML SYRINGE ONE (08:00)
[2018-02-22] MEDS ORDERED: Ketorolac Tromethamine 30 MG/ML VIAL ONE (08:00)
[2018-02-22 08:07] LABS: ALT (SGPT) 13 U/L (8-55); AST (SGOT) 21 U/L (5-34); Albumin 3.6 g/dL (3.5-5.0); Alkaline Phosphatase 80 U/L (40-150); Anion Gap 13 mmol/L (10-20); BUN (Urea Nitrogen) 16 mg/dL (8.4-25.7); Bilirubin, Total 0.3 mg/dL (0.2-1.2); Calc. Creatinine Clearance 177 mL/min (70-130); Carbon Dioxide 23 mmol/L (22-29); Chloride 105 mmol/L (98-107); Estimated GFR-MDRD Greater than 90; Globulin 2.9 g/dL (2.4-3.5); Glucose 153 mg/dL (70-105); Potassium 4.1 mmol/L (3.5-5.1); Protein, Total 6.5 g/dL (6.0-8.3); Sodium 137 mmol/L (136-145)
[2018-02-22 08:20] LABS: #Eosinphils 0.3 thou/uL (0.0-0.7); #Lymphocytes 2.1 thou/uL (1.20-3.40); #Monocytes 1.1 thou/uL (0.11-0.59); %Basophils 0.5 % (0.0-1.0); %Eosinophils 3.5 % (0.0-10.0); %Lymphocytes 24.2 % (21.0-51.0); %Monocytes 13.2 % (0.0-10.0); %Neutrophils 58.6 % (42.0-75.0); MDiff Complete? YES; Macrocytosis SLIGHT = 6-15 cells (100X) (0-5/hpf); Mean Corpuscular HGB CONC 32.3 g/dL (32.0-36.0); Mean Corpuscular Hemoglobin 34.2 pg (27.0-31.0); Mean Platelet Volume 7.4 fL (7.4-10.4); Platelet Count 175 thou/uL (130-400); RBC Distribution Width 14.7 % (11.5-14.5)
[2018-02-22] MEDS ORDERED: Fentanyl 100 MCG/2 ML VIAL ONE ×2 (08:42)
[2018-02-22] MEDS ORDERED: Phenylephrine HCL 10 MG/ML VIAL ONE (09:47)
[2018-02-22] MEDS ORDERED: PHENYLEPHRINE-NS 100 MCG/ML 10 ML SYRINGE ONE ×3 (09:48→11:16)
[2018-02-22] MEDS ORDERED: Ondansetron HCl/PF 4 MG/2 ML Vial IVP PRN ×3 (10:59→11:03)
[2018-02-22] MEDS ORDERED: Promethazine HCl 25 MG/ML VIAL SLOW IVP PRN ×3 (10:59→11:03)
[2018-02-22] MEDS ORDERED: Promethazine HCl 25 MG/ML VIAL IM PRN ×3 (10:59→11:03)
[2018-02-22] MEDS ORDERED: HYDROmorphone 2 MG/ML VIAL SLOW IVP PRN (11:00)
[2018-02-22] MEDS ORDERED: Lidocaine 1% PF 5 ML VIAL ONE (11:16)
[2018-02-22] MEDS ORDERED: Calcium Chloride 1 GM/10 ML Abboject SYRINGE ONE (11:16)
[2018-02-22] MEDS ORDERED: ePHEDrine/0.9% NaCl/PF SYRINGE 50 mg/10 ml ONE (11:16)
[2018-02-22] MEDS ORDERED: Ondansetron HCl/PF 4 MG/2 ML Vial ONE (11:16)
[2018-02-22] MEDS ORDERED: Glycopyrrolate 0.2 MG/ML 5 ML SYRINGE ONE (11:16)
[2018-02-22] MEDS ORDERED: PROPOFOL 200 MG/20 ML VIAL ONE (11:16)
--- NOTE | 2018-02-22 12:28 | OP ---
DATE OF PROCEDURE: 02/22/2018 PREOPERATIVE DIAGNOSES: Male right breast cancer status post Donald adjunctive therapy with palpable cl inical nodes on initial presentation. PROCEDURE: T3 N1 M0 procedure, right modified radical mastectomy, two #19 gold ALESSANDRA drains. SURGEON: Terrance Olmos M.D. ANESTHESIA: General. ESTIMATED BLOOD LOSS: 200 mL. BLOOD TRANSFUSED: None. PROCEDURE IN DETAIL: The patient was taken to the operating room where under general anesthesia, the right chest, axilla prepared with ChloraPrep, draped in routine fashion. Incision was made for a mo dified radical mastectomy with elliptical incision encompassing en bloc resection nipple areolar comp sherman underlying retroareolar tumor. Using the plasma blade flaps of skin, subcutaneous tissue dissect ed from breast tissue superiorly to the clavicle, medially to the sternum, inferiorly to the abdomina l wall, lesser and laterally to the latissimus dorsi. This skin and breast tissue dissected free fro m the pectoralis fascia beginning medially to laterally using the plasma blade, dissecting Rogelio's n odes from the pectoralis major and minor muscles and axillary node dissection carried out dissecting the axillary contents from the subclavian vein, preserving the long thoracic nerve and the thoracodor peterson nerves. Axillary contents dissected free and excised from the latissimus using the plasma blade. Hemostasis gained with the plasma blade and clips. Wound irrigated, good hemostasis obtained and n oted. Two #19 gold Sidney-Venegas drains brought out through separate inferior stab incisions and se cured with 3-0 nylon suture and Biopatch sterile dressings applied. Good hemostasis ensured as wound was irrigated. Subcutaneous tissues approximated with 3-0 Monocryl, skin with brisa. Xeroform st erile dressings applied. The patient tolerated the procedure well.
[2018-02-22] MEDS ORDERED: traMADol HCl 50 MG TAB ONE (12:59)
--- NOTE | 2018-02-26 20:24 | EKG ---
Test Reason : PREOP Blood Pressure : / mmHG Vent. Rate : 088 BPM Atrial Rate : 088 BPM P-R Int : 180 ms QRS Dur : 086 ms QT Int : 386 ms P-R-T Axes : 105 -33 009 degrees QTc Int : 467 ms Normal sinus rhythm Left axis deviation Pulmonary disease pattern Abnormal ECG When compared with ECG of 01-SEP-2017 17:40, Premature atrial complexes are no longer Present ST no longer depressed in Anterior leads T wave inversion no longer evident in Anterolateral leads Confirmed by Yani GARCIA ([id number]) on 02/26/2018 8:24:36 PM Referred By: JULIANNE Confirmed By:Yani GARCIA
== END 2018-02-22 16:05 | disposition home or self-care (01) ==
LOC: SDC 06:29
PROVIDERS: ATTEND Specialist
PROC: 07T50ZZ Resection of Right Axillary Lymphatic, Open Approach (ICD-10-PCS; principal; 2018-02-22)
PROC: 0HBT0ZZ Excision of Right Breast, Open Approach (ICD-10-PCS; principal; 2018-02-22)
DX: C50.121 Malignant neoplasm of central portion of right male breast (principal); C77.3 Secondary and unspecified malignant neoplasm of axilla and upper limb lymph nodes; G47.33 Obstructive sleep apnea (adult) (pediatric); I48.91 Unspecified atrial fibrillation; I10 Essential (primary) hypertension; E11.9 Type 2 diabetes mellitus without complications; F17.200 Nicotine dependence, unspecified, uncomplicated; E66.01 Morbid (severe) obesity due to excess calories; Z68.39 Body mass index [BMI] 39.0-39.9, adult; Z92.21 Personal history of antineoplastic chemotherapy; Z17.0 Estrogen receptor positive status [ER+]; Z79.84 Long term (current) use of oral hypoglycemic drugs; Z79.899 Other long term (current) drug therapy
CPT/HCPCS: 36415; 80053; 85025; 88309; 93005; 93010; J0131; J1885; J2001; J2370; J2405; J2704; J3010

== ENCOUNTER 2018-03-02 12:13 | Day surgery (SDC) | payer SELFPAY ==
[2018-03-02] MEDS ORDERED: SODIUM CHLORIDE 0.9% IVPB SCH (12:30)
[2018-03-02] MEDS ORDERED: TRASTUZUMAB IVPB SCH (12:30)
[2018-03-02] MEDS ORDERED: Sodium Chloride 0.9% 20 ML ONE (12:49)
[2018-03-02 13:05] VITALS: BP 99/53; TEMP 97.7
== END 2018-03-02 19:31 | disposition home or self-care (01) ==
LOC: ONC/OP 12:13
PROVIDERS: ATTEND Internal Medicine Medical Oncology
DX: Z51.11 Encounter for antineoplastic chemotherapy (principal); C50.121 Malignant neoplasm of central portion of right male breast; I10 Essential (primary) hypertension; E11.9 Type 2 diabetes mellitus without complications; G47.33 Obstructive sleep apnea (adult) (pediatric); E66.01 Morbid (severe) obesity due to excess calories; F17.200 Nicotine dependence, unspecified, uncomplicated; Z79.84 Long term (current) use of oral hypoglycemic drugs; Z79.899 Other long term (current) drug therapy; Z68.41 Body mass index [BMI] 40.0-44.9, adult
CPT/HCPCS: 96413; J1642; J7050; J9355

== ENCOUNTER 2018-03-23 13:01 | Day surgery (SDC) | payer SELFPAY ==
[2018-03-23 13:28] VITALS: BP 127/70; TEMP 97.8
[2018-03-23] MEDS ORDERED: SODIUM CHLORIDE 0.9% IVPB SCH (13:30)
[2018-03-23] MEDS ORDERED: TRASTUZUMAB IVPB SCH (13:30)
[2018-03-23] MEDS ORDERED: Sodium Chloride 0.9% 20 ML ONE (14:57)
== END 2018-03-23 15:31 | disposition home or self-care (01) ==
LOC: ONC/OP 13:01
PROVIDERS: ATTEND Internal Medicine Medical Oncology
DX: Z51.11 Encounter for antineoplastic chemotherapy (principal); C50.121 Malignant neoplasm of central portion of right male breast
CPT/HCPCS: 96413; J1642; J7050; J9355

== ENCOUNTER 2018-04-20 13:25 | Day surgery (SDC) | payer SELFPAY ==
[2018-04-20] MEDS ORDERED: Sodium Chloride 0.9% 20 ML ONE (13:34)
[2018-04-20] MEDS ORDERED: TRASTUZUMAB IVPB SCH (14:45)
[2018-04-20] MEDS ORDERED: SODIUM CHLORIDE 0.9% IVPB SCH (14:45)
[2018-04-20 17:10] VITALS: BP 122/59; TEMP 97.6
== END 2018-04-20 19:25 | disposition home or self-care (01) ==
LOC: ONC/OP 13:25
PROVIDERS: ATTEND Family Medicine
DX: Z51.11 Encounter for antineoplastic chemotherapy (principal); C50.121 Malignant neoplasm of central portion of right male breast; E11.9 Type 2 diabetes mellitus without complications; I10 Essential (primary) hypertension; G47.33 Obstructive sleep apnea (adult) (pediatric); E66.01 Morbid (severe) obesity due to excess calories; F17.210 Nicotine dependence, cigarettes, uncomplicated; Z79.84 Long term (current) use of oral hypoglycemic drugs; Z79.899 Other long term (current) drug therapy
CPT/HCPCS: 96413; J1642; J7050; J9355

== ENCOUNTER 2018-05-11 13:50 | Day surgery (SDC) | payer OTHER ==
[2018-05-11] MEDS ORDERED: SODIUM CHLORIDE 0.9% IVPB SCH (14:00)
[2018-05-11] MEDS ORDERED: TRASTUZUMAB IVPB SCH (14:00)
[2018-05-11 14:32] VITALS: BP 123/66; TEMP 98.4
[2018-05-11] MEDS ORDERED: Sodium Chloride 0.9% 20 ML ONE (14:46)
== END 2018-05-11 15:25 | disposition home or self-care (01) ==
LOC: ONC/OP 13:50
PROVIDERS: ATTEND Internal Medicine Medical Oncology
DX: Z51.11 Encounter for antineoplastic chemotherapy (principal); C50.121 Malignant neoplasm of central portion of right male breast; E11.9 Type 2 diabetes mellitus without complications; I10 Essential (primary) hypertension; G47.33 Obstructive sleep apnea (adult) (pediatric); E66.01 Morbid (severe) obesity due to excess calories; F17.210 Nicotine dependence, cigarettes, uncomplicated; Z17.0 Estrogen receptor positive status [ER+]; Z79.84 Long term (current) use of oral hypoglycemic drugs; Z79.899 Other long term (current) drug therapy
CPT/HCPCS: 96413; J1642; J7050; J9355

== ENCOUNTER 2018-06-15 12:55 | Day surgery (SDC) | payer OTHER ==
[2018-06-15] MEDS ORDERED: Sodium Chloride 0.9% 20 ML ONE (13:09)
[2018-06-15] MEDS ORDERED: SODIUM CHLORIDE 0.9% IVPB SCH (13:15)
[2018-06-15] MEDS ORDERED: TRASTUZUMAB IVPB SCH (13:15)
[2018-06-15 14:42] VITALS: BP 136/86; TEMP 98.4
== END 2018-06-15 14:43 | disposition home or self-care (01) ==
LOC: ONC/OP 12:55
PROVIDERS: ATTEND Internal Medicine Medical Oncology
DX: Z51.11 Encounter for antineoplastic chemotherapy (principal); C50.121 Malignant neoplasm of central portion of right male breast; I11.0 Hypertensive heart disease with heart failure; I50.9 Heart failure, unspecified; E11.9 Type 2 diabetes mellitus without complications; G47.33 Obstructive sleep apnea (adult) (pediatric); F17.210 Nicotine dependence, cigarettes, uncomplicated; I48.91 Unspecified atrial fibrillation; E66.01 Morbid (severe) obesity due to excess calories; Z68.41 Body mass index [BMI] 40.0-44.9, adult; Z17.0 Estrogen receptor positive status [ER+]; Z79.899 Other long term (current) drug therapy; Z79.84 Long term (current) use of oral hypoglycemic drugs
CPT/HCPCS: 96413; J1642; J7050; J9355

== ENCOUNTER 2018-07-06 12:53 | Day surgery (SDC) | payer OTHER ==
[2018-07-06] MEDS ORDERED: Sodium Chloride 0.9% 20 ML ONE (14:13)
[2018-07-06] MEDS ORDERED: SODIUM CHLORIDE 0.9% IVPB SCH ×2 (14:15→14:30)
[2018-07-06] MEDS ORDERED: TRASTUZUMAB IVPB SCH ×2 (14:15→14:30)
[2018-07-06 14:19] VITALS: BP 120/71; TEMP 98.5
== END 2018-07-06 16:08 | disposition home or self-care (01) ==
LOC: ONC/OP 12:53
PROVIDERS: ATTEND Internal Medicine Medical Oncology
DX: Z51.11 Encounter for antineoplastic chemotherapy (principal); C50.121 Malignant neoplasm of central portion of right male breast
CPT/HCPCS: 96413; J1642; J7050; J9355

== ENCOUNTER 2018-08-17 14:40 | Day surgery (SDC) | payer OTHER ==
[~2018-08-17 14:40] MED LIST: ADO TRASTUZUMAB EMTANSINE IVPB SCH; SODIUM CHLORIDE 0.9% IVPB SCH; TRASTUZUMAB IVPB SCH
[2018-08-17] MEDS ORDERED: Sodium Chloride 0.9% 20 ML ONE (14:44)
[2018-08-17] MEDS ORDERED: diphenhydrAMINE 50 MG/ML VIAL ONE (15:51)
[2018-08-17] MEDS ORDERED: diphenhydrAMINE 50 MG/ML VIAL IVP SCH (16:00)
== END 2018-08-17 17:32 | disposition home or self-care (01) ==
LOC: ONC/OP 14:40
PROVIDERS: ATTEND Internal Medicine Medical Oncology
DX: Z51.11 Encounter for antineoplastic chemotherapy (principal); C50.121 Malignant neoplasm of central portion of right male breast; I10 Essential (primary) hypertension; I48.91 Unspecified atrial fibrillation; E11.9 Type 2 diabetes mellitus without complications; G47.33 Obstructive sleep apnea (adult) (pediatric); E66.01 Morbid (severe) obesity due to excess calories; Z68.41 Body mass index [BMI] 40.0-44.9, adult; F17.210 Nicotine dependence, cigarettes, uncomplicated; Z98.890 Other specified postprocedural states
CPT/HCPCS: 36415; 80053; 82248; 83615; 84100; 84550; 96375; 96413; 96415; J1200; J1642; J7050; J9354

== ENCOUNTER 2018-09-07 14:10 | Day surgery (SDC) | payer OTHER ==
[~2018-09-07 14:10] MED LIST changes: -TRASTUZUMAB IVPB SCH; +diphenhydrAMINE 25 MG in Sodium Chloride 0.9% 50 ML IVPB SCH
[2018-09-07 14:41] VITALS: BP 117/61; TEMP 98.3
[2018-09-07 14:44] LABS: Hemoglobin 13.3 g/dL (14.0-18.0); Mean Corpuscular Hemoglobin 31.6 pg (27.0-31.0); Mean Corpuscular Volume 95.9 fL (78.0-98.0); Mean Platelet Volume 7.6 fL (7.4-10.4); Platelet Count 197 thou/uL (130-400); Red Blood Cell (RBC) Count 4.19 mill/uL (4.70-6.10); White Blood Cell (WBC) Count 8.5 thou/uL (4.8-10.8)
[2018-09-07] MEDS ORDERED: Sodium Chloride 0.9% 30 ML ONE (15:01)
[2018-09-07 15:05] LABS: Band 2 % (5-11); Eosinophils 5 % (0-10); Lymphocytes 14 % (21-51); MDiff Complete? YES; Monocytes 9 % (0-10); Neutrophil 68 % (42-75); Platelet Morphology Comment Appears Adequate; RBC Morphology Normal; Reactive Lymphocytes 2 % (0-10)
== END 2018-09-07 17:28 | disposition home or self-care (01) ==
LOC: ONC/OP 14:10
PROVIDERS: ATTEND Internal Medicine Medical Oncology
DX: Z51.12 Encounter for antineoplastic immunotherapy (principal); C50.121 Malignant neoplasm of central portion of right male breast; Z17.0 Estrogen receptor positive status [ER+]
CPT/HCPCS: 85025; 96375; 96413; J1200; J1642; J7050; J9354

== ENCOUNTER 2018-09-28 08:47 | Day surgery (SDC) | payer OTHER ==
[2018-09-28] MEDS ORDERED: Sodium Chloride 0.9% 20 ML ONE (08:53)
[2018-09-28 09:02] VITALS: BP 120/65; TEMP 98.3
== END 2018-09-28 11:41 | disposition home or self-care (01) ==
LOC: ONC/OP 08:47
PROVIDERS: ATTEND Internal Medicine Medical Oncology
DX: Z51.12 Encounter for antineoplastic immunotherapy (principal); C50.121 Malignant neoplasm of central portion of right male breast
CPT/HCPCS: 36415; 80053; 82248; 83615; 84100; 84550; 96375; 96413; J1200; J1642; J7050; J9354

== ENCOUNTER 2018-10-19 15:20 | Day surgery (SDC) | payer OTHER ==
[~2018-10-19 15:20] MED LIST changes: -diphenhydrAMINE 25 MG in Sodium Chloride 0.9% 50 ML IVPB SCH; +diphenhydrAMINE 50 MG/ML VIAL IVP PRN
[2018-10-19] MEDS ORDERED: Sodium Chloride 0.9% 20 ML ONE (15:30)
[2018-10-19 16:25] VITALS: BP 137/63; TEMP 98.7
== END 2018-10-19 17:20 | disposition home or self-care (01) ==
LOC: ONC/OP 15:20
PROVIDERS: ATTEND Internal Medicine Medical Oncology
DX: Z51.12 Encounter for antineoplastic immunotherapy (principal); C50.121 Malignant neoplasm of central portion of right male breast
CPT/HCPCS: 36415; 80053; 82248; 83615; 84100; 84550; 96375; 96413; J1200; J1642; J7050; J9354

== ENCOUNTER 2018-10-26 14:03 | Outpatient (CLI) | payer OTHER | END 2018-10-26 14:04 | disposition home or self-care (01) | LOC: ULT 14:03 | PROVIDERS: ATTEND Internal Medicine Medical Oncology | DX: C50.121 Malignant neoplasm of central portion of right male breast (principal); I08.3 Combined rheumatic disorders of mitral, aortic and tricuspid valves | CPT/HCPCS: 93306 ==

== ENCOUNTER 2018-11-13 14:20 | Day surgery (SDC) | payer OTHER ==
[2018-11-13] MEDS ORDERED: Sodium Chloride 0.9% 20 ML ONE (14:25)
[2018-11-13] MEDS ORDERED: ADO TRASTUZUMAB EMTANSINE IVPB SCH (14:45)
[2018-11-13] MEDS ORDERED: diphenhydrAMINE 25 MG in Sodium Chloride 0.9% 50 ML IVPB SCH (14:45)
[2018-11-13] MEDS ORDERED: SODIUM CHLORIDE 0.9% IVPB SCH (14:45)
[2018-11-13 15:11] VITALS: BP 136/74; TEMP 97.8
== END 2018-11-13 16:32 | disposition home or self-care (01) ==
LOC: ONC/OP 14:20
PROVIDERS: ATTEND Internal Medicine Medical Oncology
DX: Z51.12 Encounter for antineoplastic immunotherapy (principal); C50.121 Malignant neoplasm of central portion of right male breast; Z79.84 Long term (current) use of oral hypoglycemic drugs; Z79.82 Long term (current) use of aspirin; Z79.899 Other long term (current) drug therapy
CPT/HCPCS: 36415; 80053; 82248; 83615; 84100; 84550; 96375; 96413; J1200; J1642; J7050; J9354

== ENCOUNTER 2018-11-30 12:59 | Day surgery (SDC) | payer OTHER ==
[2018-11-30] MEDS ORDERED: SODIUM CHLORIDE 0.9% IVPB SCH (13:15)
[2018-11-30] MEDS ORDERED: ADO TRASTUZUMAB EMTANSINE IVPB SCH (13:15)
[2018-11-30] MEDS ORDERED: diphenhydrAMINE 25 MG in Sodium Chloride 0.9% 50 ML IVPB SCH (13:15)
[2018-11-30 13:53] VITALS: BP 129/59; TEMP 98.6
[2018-11-30] MEDS ORDERED: Sodium Chloride 0.9% 20 ML ONE (13:57)
== END 2018-11-30 16:38 | disposition home or self-care (01) ==
LOC: ONC/OP 12:59
PROVIDERS: ATTEND Internal Medicine Medical Oncology
DX: Z51.12 Encounter for antineoplastic immunotherapy (principal); C50.121 Malignant neoplasm of central portion of right male breast
CPT/HCPCS: 36415; 80053; 82248; 83615; 84100; 84550; 96375; 96413; J1200; J1642; J7050; J9354

== ENCOUNTER 2018-12-21 12:06 | Day surgery (SDC) | payer OTHER ==
[~2018-12-21 12:06] MED LIST changes: +diphenhydrAMINE 25 MG in Sodium Chloride 0.9% 50 ML IVPB SCH; -diphenhydrAMINE 50 MG/ML VIAL IVP PRN
[2018-12-21] MEDS ORDERED: Sodium Chloride 0.9% 20 ML ONE (12:07)
[2018-12-21 13:11] VITALS: BP 148/75; TEMP 97.6
== END 2018-12-21 14:49 | disposition home or self-care (01) ==
LOC: ONC/OP 12:06
PROVIDERS: ATTEND Internal Medicine Medical Oncology
DX: Z51.12 Encounter for antineoplastic immunotherapy (principal); C50.121 Malignant neoplasm of central portion of right male breast
CPT/HCPCS: 36415; 80053; 82248; 83615; 84100; 84550; 96375; 96413; J1200; J1642; J7050; J9354

== ENCOUNTER 2019-01-10 13:08 | Outpatient (CLI) | payer OTHER ==
--- NOTE | 2019-01-10 13:46 | ULT ---
Ultrasound right chest wall: DATE: 01/10/2019 HISTORY: 53-year-old patient with malignant neoplasm of right male breast with palpable mass at chest wall. FINDINGS: At the right chest wall, there is a large 10 x 4 x 7 cm circumscribed mass which contains mixed echog enicity. There are numerous regions that are hypoechoic and anechoic, interspersed with multiple septa and intermediate echogenicity solid appearing components. No blood flow is demonstrated within the mass by Doppler. IMPRESSION: Complex mass in right chest wall. Given the history, this is probably a large hematoma. Follow-up is recommended.
== END 2019-01-10 13:09 | disposition home or self-care (01) ==
LOC: SCSULT 13:08
PROVIDERS: ATTEND Internal Medicine Medical Oncology
DX: R22.2 Localized swelling, mass and lump, trunk (principal); C50.921 Malignant neoplasm of unspecified site of right male breast
CPT/HCPCS: 76999

== ENCOUNTER 2019-01-11 07:44 | Outpatient (CLI) | payer OTHER ==
--- NOTE | 2019-01-11 11:12 | CT ---
CHEST AND ABDOMEN CT SCAN WITH IV CONTRAST: Date: 01/11/19 HISTORY: Right male breast malignant neoplasm with palpable mass right upper anterior chest. COMPARISON: Ultrasound exam dated 01/10/19. CT dated 09/22/17. FINDINGS: Evidence for postop changes in the right breast and axilla. 4.5 x 6.2 x 8.4 cm diameter low attenuati on mass in the right axilla and anterolateral chest wall, probably representing residual hematoma/ser rachel from the prior biopsy. This corresponds to the abnormal finding on ultrasound study of 01/10/19. There is some adjacent subcutaneous fat stranding and minimal skin thickening. Minimal patchy linear parenchymal change in the right upper lobe and right middle lobe, possibly mild pneumonitis. No evide nce for pulmonary metastasis. No pleural effusion or pericardial effusion. No liver metastasis. Sligh t stable nodularity of both adrenal glands. 3.0 cm diameter right renal cyst. Small hiatal hernia. St able appearing area of sclerotic density in the right lateral aspect of the L2 vertebral body, possib ly a stable metastasis. IMPRESSION: 1. Large, circumscribed, low attenuation mass in the right anterolateral chest wall/axillary region, accounting for the palpable finding, most consistent with that of post biopsy hematoma/seroma. 2. Diffuse subcutaneous fat stranding in the anterior right chest wall and right axilla. 3. Minimal patchy linear and interstitial parenchymal changes in the right upper lobe and right midd le lobe, possibly minimal pneumonitis. 4. No liver metastasis. 5. Stable minimally sclerotic focus in the L2 vertebral body, which certainly could represent a stab le metastasis. POS: [facility]
[2019-01-11] MEDS ORDERED: Iopamidol 370 76% 100 ML VIAL ONE (16:11)
== END 2019-01-11 07:45 | disposition home or self-care (01) ==
LOC: CT 07:44
PROVIDERS: ATTEND Internal Medicine Medical Oncology
DX: C50.121 Malignant neoplasm of central portion of right male breast (principal); R22.2 Localized swelling, mass and lump, trunk; M89.9 Disorder of bone, unspecified
CPT/HCPCS: 71260; 74160; Q9967

== ENCOUNTER 2019-02-01 12:37 | Outpatient (CLI) | payer OTHER | END 2019-02-01 12:38 | disposition home or self-care (01) | LOC: ULT 12:37 | PROVIDERS: ATTEND Internal Medicine Medical Oncology | DX: Z51.11 Encounter for antineoplastic chemotherapy (principal); C50.121 Malignant neoplasm of central portion of right male breast; I08.8 Other rheumatic multiple valve diseases; Z79.899 Other long term (current) drug therapy | CPT/HCPCS: 93306 ==

== ENCOUNTER 2019-02-02 12:11 | Day surgery (SDC) | payer OTHER ==
[2019-02-02] MEDS ORDERED: Sodium Chloride 0.9% 20 ML ONE (12:17)
[2019-02-02 12:21] VITALS: BP 112/67; TEMP 98
== END 2019-02-02 14:50 | disposition home or self-care (01) ==
LOC: ONC/OP 12:11
PROVIDERS: ATTEND Internal Medicine Medical Oncology
DX: Z51.12 Encounter for antineoplastic immunotherapy (principal); C50.121 Malignant neoplasm of central portion of right male breast
CPT/HCPCS: 36415; 80053; 82248; 83615; 84100; 84550; 96375; 96413; J1200; J1642; J7050; J9354

== ENCOUNTER 2019-02-22 14:52 | Day surgery (SDC) | payer OTHER ==
[2019-02-22] MEDS ORDERED: Sodium Chloride 0.9% 20 ML ONE (15:06)
== END 2019-02-22 17:03 | disposition home or self-care (01) ==
LOC: ONC/OP 14:52
PROVIDERS: ATTEND Internal Medicine Medical Oncology
DX: Z51.12 Encounter for antineoplastic immunotherapy (principal); C50.121 Malignant neoplasm of central portion of right male breast; Z17.0 Estrogen receptor positive status [ER+]
CPT/HCPCS: 36415; 80053; 82248; 83615; 84100; 84550; 96375; 96413; J1200; J1642; J7050; J9354

== ENCOUNTER 2019-03-15 14:10 | Day surgery (SDC) | payer OTHER ==
[2019-03-15] MEDS ORDERED: Sodium Chloride 0.9% 20 ML ONE (14:16)
[2019-03-15 16:02] VITALS: BP 119/66; TEMP 98.3
== END 2019-03-15 16:03 | disposition home or self-care (01) ==
LOC: ONC/OP 14:10
PROVIDERS: ATTEND Internal Medicine Medical Oncology
DX: Z51.12 Encounter for antineoplastic immunotherapy (principal); C50.121 Malignant neoplasm of central portion of right male breast; Z17.0 Estrogen receptor positive status [ER+]
CPT/HCPCS: 36415; 80053; 82248; 83615; 84100; 84550; 96375; 96413; J1200; J1642; J7050; J9354

== ENCOUNTER 2019-04-05 14:33 | Day surgery (SDC) | payer OTHER | END 2019-04-05 16:07 | disposition home or self-care (01) | LOC: ONC/OP 14:33 | PROVIDERS: ATTEND Internal Medicine Medical Oncology | DX: Z51.12 Encounter for antineoplastic immunotherapy (principal); C50.121 Malignant neoplasm of central portion of right male breast | CPT/HCPCS: 36415; 80053; 82248; 83615; 84100; 84550; 96375; 96413; J1200; J7050; J9354 ==

== ENCOUNTER 2019-04-26 14:34 | Day surgery (SDC) | payer OTHER ==
[2019-04-26] MEDS ORDERED: Sodium Chloride 0.9% 20 ML ONE (15:01)
[2019-04-26 15:44] VITALS: BP 122/72; TEMP 98
== END 2019-04-26 17:12 | disposition home or self-care (01) ==
LOC: ONC/OP 14:34
PROVIDERS: ATTEND Internal Medicine Medical Oncology
DX: Z51.12 Encounter for antineoplastic immunotherapy (principal); C50.121 Malignant neoplasm of central portion of right male breast
CPT/HCPCS: 36415; 80053; 82248; 83615; 84100; 84550; 96375; 96413; J1200; J1642; J7050; J9354

== ENCOUNTER 2019-05-07 13:35 | Outpatient (CLI) | payer OTHER | END 2019-05-07 13:36 | disposition home or self-care (01) | LOC: ULT 13:35 | PROVIDERS: ATTEND Internal Medicine Medical Oncology | DX: Z51.11 Encounter for antineoplastic chemotherapy (principal); C50.121 Malignant neoplasm of central portion of right male breast; I08.1 Rheumatic disorders of both mitral and tricuspid valves; Z79.899 Other long term (current) drug therapy | CPT/HCPCS: 93306 ==

== ENCOUNTER → 2019-05-22 | Day surgery (SDC) | payer OTHER ==
[2019-05-22 17:10] VITALS: BP 110/63; TEMP 97.8
== END ==
LOC: ONC/OP 14:45
PROVIDERS: ATTEND Internal Medicine Medical Oncology
DX: Z51.12 Encounter for antineoplastic immunotherapy (principal); C50.121 Malignant neoplasm of central portion of right male breast
CPT/HCPCS: 96375; 96413; J1200; J7050; J9354

== ENCOUNTER 2019-06-14 15:26 | Day surgery (SDC) | payer OTHER ==
[~2019-06-14 15:26] MED LIST changes: +TRASTUZUMAB IVPB SCH
[2019-06-14] MEDS ORDERED: Sodium Chloride 0.9% 20 ML ONE (15:38)
[2019-06-14 15:44] VITALS: BP 119/68; TEMP 97.9
== END 2019-06-14 16:57 | disposition home or self-care (01) ==
LOC: ONC/OP 15:26
PROVIDERS: ATTEND Internal Medicine Medical Oncology
DX: Z51.12 Encounter for antineoplastic immunotherapy (principal); C50.121 Malignant neoplasm of central portion of right male breast
CPT/HCPCS: 36415; 80053; 82248; 82378; 83615; 84100; 84550; 86300; 96375; 96413; J1200; J1642; J7050; J9354

== ENCOUNTER 2021-05-25 17:59 | Inpatient (IN) | payer OTHER ==
[2021-05-25 21:56] LABS: Lactic Acid 1.9 mmol/L (0.5-2.2)
[2021-05-25] MEDS ORDERED: Acetaminophen 650 MG Suppository PR PRN (23:51)
[2021-05-25] MEDS ORDERED: Ondansetron ODT 4 MG TAB PO PRN (23:51)
[2021-05-25] MEDS ORDERED: Ondansetron PF 4 MG/2 ML Vial IVP PRN (23:51)
[2021-05-26] MEDS ORDERED: HumaLOG 300 UNITS/3 ML VIAL SC PRN (03:55)
[2021-05-26] MEDS ORDERED: Dextrose 5% in Water 1,000 ML IV PRN (03:55)
[2021-05-26] MEDS ORDERED: Dextrose 50% Abboject 50 ML SYRINGE SLOW IVP PRN (03:55)
[2021-05-26] MEDS: Sodium Chloride 0.9% 1,000 ML IV SCH ×2 (05:49→16:31)
[2021-05-26 05:58] LABS: #Eosinphils 0.1 thou/uL (0.0-0.7); #Lymphocytes 1.6 thou/uL (1.20-3.40); #Monocytes 1.1 thou/uL (0.11-0.59); #Neutrophils 7.6 thou/uL (1.40-6.50); %Basophils 0.1 % (0.0-1.0); %Eosinophils 0.9 % (0.0-10.0); %Lymphocytes 15.5 % (21.0-51.0); %Monocytes 10.3 % (0.0-10.0); %Neutrophils 73.4 % (42.0-75.0); Hemoglobin 13.9 g/dL (14.0-18.0); Mean Corpuscular HGB CONC 31.3 g/dL (32.0-36.0); Mean Corpuscular Hemoglobin 30.5 pg (27.0-31.0); Mean Corpuscular Volume 97.4 fL (78.0-98.0); Mean Platelet Volume 9.3 fL (7.4-10.4); Platelet Count 132 thou/uL (130-400); RBC Distribution Width 14.7 % (11.5-14.5); Red Blood Cell (RBC) Count 4.55 mill/uL (4.70-6.10); White Blood Cell (WBC) Count 10.3 thou/uL (4.8-10.8)
[2021-05-26 06:19] LABS: Anion Gap 10 mmol/L (10-20); BUN (Urea Nitrogen) 16 mg/dL (8.4-25.7); Calc. Creatinine Clearance 105 mL/min (70-130); Calcium 8.4 mg/dL (7.8-10.44); Carbon Dioxide 31 mmol/L (22-29); Chloride 101 mmol/L (98-107); Glucose 181 mg/dL (70-105); Sodium 138 mmol/L (136-145)
[2021-05-26] MEDS: Diltiazem HCl 125 MG, Admixture Fee 1 EACH in Sodium Chloride 0.9% 100 ML IVPB SCH ×2 (06:45→22:49)
[2021-05-26] MEDS ORDERED: Enoxaparin Sodium 40 MG/0.4 ML SYRINGE SC SCH (09:00)
[2021-05-26] MEDS ORDERED: Enoxaparin Sodium 120 MG/0.8 ML SYRINGE SC SCH (09:00)
[2021-05-26] MEDS: Cefepime 2 GM in Sodium Chloride 0.9% 100 ML IVPB SCH ×2 (10:03→21:10)
[2021-05-26] MEDS: VANCOMYCIN 1.25 GM/250 ML BAG 1.25 GM in Premix Bag 1 BAG IVPB SCH ×2 (10:04→21:10)
[2021-05-26] MEDS: HumaLOG 300 UNITS/3 ML VIAL SC PRN (11:48)
[2021-05-26 14:59] LABS: Hemoglobin A1c 9.3 % (4.0-6.0)
[2021-05-26 15:39] LABS: Bacteria/HPF None Seen HPF (None Seen); Bilirubin Negative (Negative); Blood, Urine Negative (Negative); Clarity Clear (Clear); Glucose, Urine (Dipstick) Greater than 1000 mg/dL (Negative); Ketone, Urine Negative (Negative); Leukocyte Negative Leu/uL (Negative); Nitrite Negative (Negative); Protein, Urine (Dipstick) 10 mg/dL (Neg-Trace); RBC/HPF 0-3 HPF (0-3); Specific Gravity, Urine 1.022 (1.002-1.036); Squamous Epithelial 0-3 HPF (0-3); Urobilinogen 6 mg/dL (Less than 2); pH, Urine 5.5 (5.0-9.0)
[2021-05-26 15:43] LABS: Urine Culture Reflex Yes Yes
[2021-05-26 17:00] LABS: Cardiac Risk 3.8 (Less than 4.5)
[2021-05-26] MEDS ORDERED: Dronedarone HCl 400 MG TAB PO SCH (17:45)
[2021-05-26] MEDS: Apixaban 5 MG TAB PO SCH (21:10)
[2021-05-27 00:49] LABS: Anion Gap 11 mmol/L (10-20); BUN (Urea Nitrogen) 13 mg/dL (8.4-25.7); Calc. Creatinine Clearance 121 mL/min (70-130); Carbon Dioxide 30 mmol/L (22-29); Chloride 101 mmol/L (98-107); Glucose 170 mg/dL (70-105); Magnesium 1.3 mg/dL (1.6-2.6); Potassium 3.9 mmol/L (3.5-5.1); Sodium 138 mmol/L (136-145)
[2021-05-27] MEDS: Magnesium 2 GM/50 ML 2 GM in Premix Bag 1 BAG IVPB SCH ×2 (01:41→03:22)
[2021-05-27 05:56] LABS: Lactic Acid 0.8 mmol/L (0.5-2.2)
[2021-05-27] MEDS: Sodium Chloride 0.9% 1,000 ML IV SCH ×2 (08:04→10:15)
[2021-05-27] MEDS: Apixaban 5 MG TAB PO SCH ×2 (08:48→20:42)
[2021-05-27] MEDS: Dronedarone HCl 400 MG TAB PO SCH ×2 (08:48→17:29)
[2021-05-27] MEDS: Acetaminophen 325 MG TAB PO PRN (08:49)
[2021-05-27] MEDS: Cefepime 2 GM in Sodium Chloride 0.9% 100 ML IVPB SCH ×2 (08:49→20:42)
[2021-05-27] MEDS: VANCOMYCIN 1.25 GM/250 ML BAG 1.25 GM in Premix Bag 1 BAG IVPB SCH ×2 (10:11→20:42)
[2021-05-27] MEDS ORDERED: Fentanyl 100 MCG/2 ML VIAL ONE (12:21)
[2021-05-27] MEDS ORDERED: PROPOFOL 20 ML ONE (12:21)
[2021-05-27 20:33] LABS: Vancomycin, Trough 13.7 ug/mL
[2021-05-28] MEDS: Sodium Chloride 0.9% 1,000 ML IV SCH ×2 (01:52→11:14)
[2021-05-28] MEDS: VANCOMYCIN 1.25 GM/250 ML BAG 1.25 GM in Premix Bag 1 BAG IVPB SCH ×2 (09:18→21:35)
[2021-05-28] MEDS: Apixaban 5 MG TAB PO SCH ×2 (09:20→21:35)
[2021-05-28] MEDS: Dronedarone HCl 400 MG TAB PO SCH ×2 (09:20→17:57)
[2021-05-28] MEDS: HumaLOG 300 UNITS/3 ML VIAL SC PRN ×2 (13:56→17:57)
[2021-05-29] MEDS: Acetaminophen 325 MG TAB PO PRN ×2 (06:12→22:02)
[2021-05-29 06:55] LABS: Anion Gap 11 mmol/L (10-20); BUN (Urea Nitrogen) 13 mg/dL (8.4-25.7); Calc. Creatinine Clearance 136 mL/min (70-130); Calcium 8.3 mg/dL (7.8-10.44); Carbon Dioxide 31 mmol/L (22-29); Chloride 98 mmol/L (98-107); Glucose 154 mg/dL (70-105); Potassium 3.9 mmol/L (3.5-5.1); Sodium 136 mmol/L (136-145)
[2021-05-29] MEDS: Dronedarone HCl 400 MG TAB PO SCH ×2 (09:27→16:35)
[2021-05-29] MEDS: Apixaban 5 MG TAB PO SCH ×2 (09:27→20:51)
[2021-05-29] MEDS: VANCOMYCIN 1.25 GM/250 ML BAG 1.25 GM in Premix Bag 1 BAG IVPB SCH ×2 (09:28→22:25)
[2021-05-29] MEDS: Cefepime 2 GM in Sodium Chloride 0.9% 100 ML IVPB SCH ×2 (09:28→20:51)
[2021-05-29] MEDS: HumaLOG 300 UNITS/3 ML VIAL SC PRN ×2 (11:33→17:38)
[2021-05-29 11:35] LABS: Anion Gap 11 mmol/L (10-20); BUN (Urea Nitrogen) 12 mg/dL (8.4-25.7); Calc. Creatinine Clearance 135 mL/min (70-130); Carbon Dioxide 29 mmol/L (22-29); Chloride 100 mmol/L (98-107); Glucose 209 mg/dL (70-105); Sodium 136 mmol/L (136-145)
[2021-05-29 14:21] LABS: #Eosinphils 0.1 thou/uL (0.0-0.7); #Lymphocytes 1.2 thou/uL (1.20-3.40); #Monocytes 1.3 thou/uL (0.11-0.59); #Neutrophils 8.2 thou/uL (1.40-6.50); %Basophils 0.3 % (0.0-1.0); %Eosinophils 0.8 % (0.0-10.0); %Lymphocytes 11.2 % (21.0-51.0); %Neutrophils 75.7 % (42.0-75.0); Hemoglobin 12.7 g/dL (14.0-18.0); Large Platelets SLIGHT; MDiff Complete? YES; Mean Corpuscular HGB CONC 32.3 g/dL (32.0-36.0); Mean Corpuscular Hemoglobin 31.6 pg (27.0-31.0); Mean Corpuscular Volume 97.7 fL (78.0-98.0); Mean Platelet Volume 9.4 fL (7.4-10.4); Platelet Count 107 thou/uL (130-400); Platelet Morphology Comment Appears Decreased; RBC Distribution Width 14.4 % (11.5-14.5); RBC Morphology Normal; Red Blood Cell (RBC) Count 4.01 mill/uL (4.70-6.10); White Blood Cell (WBC) Count 10.8 thou/uL (4.8-10.8)
[2021-05-29 22:18] LABS: Actual Bicarbonate (HCO3a) 31.7 mEq/L (22-28); Base Excess (BEa) 3.8 mEq/L (-2.0 to +3.0); Calcium, Ionized (arterial) 1.11 mmol/L (1.12-1.30); Carboxyhemoglobin (COHb) 1.5 gm% (0.0-3.0); Hemoglobin (Hb) 13.2 g/dL (14.0-18.0); Potassium - ABG Lab 3.89 mmol/L (3.70-5.30); pH, Arterial 7.32 (7.35-7.45)
[2021-05-29 22:22] LABS: CO2 Tension 63.3 mmHg (35.0-45.0); O2 Tension (PaO2), arterial 46.8 mmHg (80.0-100.0)
[2021-05-29 22:23] LABS: ALV-art Gradient 230.575 mmHg (0-20); Puncture Site LBA
[2021-05-29 22:55] LABS: Vancomycin, Trough 11.3 ug/mL
[2021-05-29 22:56] LABS: #Eosinphils 0.1 thou/uL (0.0-0.7); #Lymphocytes 1.5 thou/uL (1.20-3.40); #Monocytes 1.1 thou/uL (0.11-0.59); #Neutrophils 8.9 thou/uL (1.40-6.50); %Basophils 0.3 % (0.0-1.0); %Eosinophils 1.1 % (0.0-10.0); %Lymphocytes 13.1 % (21.0-51.0); %Monocytes 9.7 % (0.0-10.0); %Neutrophils 75.8 % (42.0-75.0); Hemoglobin 12.8 g/dL (14.0-18.0); Mean Corpuscular HGB CONC 32.8 g/dL (32.0-36.0); Mean Corpuscular Hemoglobin 32.1 pg (27.0-31.0); Mean Corpuscular Volume 97.8 fL (78.0-98.0); Mean Platelet Volume 9.1 fL (7.4-10.4); Platelet Count 111 thou/uL (130-400); RBC Distribution Width 14.5 % (11.5-14.5); Red Blood Cell (RBC) Count 3.98 mill/uL (4.70-6.10); White Blood Cell (WBC) Count 11.7 thou/uL (4.8-10.8)
[2021-05-29 23:07] LABS: Lactic Acid 1.1 mmol/L (0.5-2.2)
[2021-05-29 23:13] LABS: ALT (SGPT) 18 U/L (8-55); AST (SGOT) 29 U/L (5-34); Albumin 3.4 g/dL (3.5-5.0); Alkaline Phosphatase 91 U/L (40-110); Anion Gap 10 mmol/L (10-20); BUN (Urea Nitrogen) 13 mg/dL (8.4-25.7); Bilirubin, Total 0.7 mg/dL (0.2-1.2); Calc. Creatinine Clearance 135 mL/min (70-130); Calcium 8.2 mg/dL (7.8-10.44); Carbon Dioxide 31 mmol/L (22-29); Chloride 98 mmol/L (98-107); Globulin 3.3 g/dL (2.4-3.5); Glucose 177 mg/dL (70-105); Potassium 4.1 mmol/L (3.5-5.1); Protein, Total 6.7 g/dL (6.0-8.3); Sodium 135 mmol/L (136-145)
[2021-05-29 23:26] LABS: Troponin I 0.051 ng/mL (< 0.028)
[2021-05-30 04:26] LABS: Anion Gap 10 mmol/L (10-20); BUN (Urea Nitrogen) 12 mg/dL (8.4-25.7); Calc. Creatinine Clearance 149 mL/min (70-130); Calcium 8.2 mg/dL (7.8-10.44); Carbon Dioxide 32 mmol/L (22-29); Chloride 98 mmol/L (98-107); Glucose 153 mg/dL (70-105); Potassium 4.3 mmol/L (3.5-5.1); Sodium 136 mmol/L (136-145)
[2021-05-30] MEDS: HumaLOG 300 UNITS/3 ML VIAL SC PRN ×2 (05:22→17:47)
[2021-05-30] MEDS: Cefepime 2 GM in Sodium Chloride 0.9% 100 ML IVPB SCH ×2 (09:07→20:36)
[2021-05-30] MEDS: Dronedarone HCl 400 MG TAB PO SCH ×2 (09:07→16:54)
[2021-05-30] MEDS: Vancomycin 1.5 GRAM/300 ML BAG 1.5 GM in Premix Bag 1 BAG IVPB SCH ×2 (09:17→20:41)
[2021-05-30] MEDS: Acetaminophen 325 MG TAB PO PRN (10:32)
[2021-05-30] MEDS ORDERED: AFRIN NASAL MIST 15 ML BOT NS PRN ×2 (16:59→21:08)
[2021-05-30 17:13] LABS: SARS-CoV-2 PCR by NAA Not Detected (NotDetected)
[2021-05-30] MEDS ORDERED: Oxymetazoline HCl 0.05% (30 ML BOT) NS PRN (19:15)
[2021-05-31 04:10] LABS: Base Excess 7.8 mEq/L (-2.0 to +3.0); Calcium, Ionized (venous) 1.05 mmol/L (1.16-1.32); Chloride (VBG) 94 mmol/L (98-106); Potassium (VBG) 4.56 mmol/L (3.70-5.30); Sodium 134.9 mmol/L (133-146); pH (venous) 7.35 (7.32-7.43)
[2021-05-31 04:11] LABS: Actual Bicarbonate (HCO3v) 36 mEq/L (22-28)
[2021-05-31] MEDS: Acetaminophen 325 MG TAB PO PRN (04:12)
[2021-05-31] MEDS: HumaLOG 300 UNITS/3 ML VIAL SC PRN ×3 (05:41→16:48)
[2021-05-31] MEDS: Vancomycin 1.5 GRAM/300 ML BAG 1.5 GM in Premix Bag 1 BAG IVPB SCH (09:13)
[2021-05-31] MEDS: Dronedarone HCl 400 MG TAB PO SCH ×2 (09:14→16:48)
[2021-05-31] MEDS: Cefepime 2 GM in Sodium Chloride 0.9% 100 ML IVPB SCH ×2 (09:18→21:59)
[2021-05-31 09:21] LABS: Vancomycin, Trough 11.6 ug/mL
[2021-05-31] MEDS ORDERED: VANCOMYCIN 1.75 GM/350 ML BAG 1.75 GM in Premix Bag 1 BAG IVPB SCH (10:00)
[2021-05-31] MEDS ORDERED: Digoxin 0.5 MG/2 ML AMP ONE (10:50)
[2021-05-31] MEDS: Adenosine 6 MG/2 ML VIAL ONE ×2 (10:55→11:10)
[2021-05-31 14:45] LABS: Magnesium 1.5 mg/dL (1.6-2.6)
[2021-05-31] MEDS ORDERED: Furosemide 40 MG/4 ML VIAL SLOW IVP SCH (17:15)
[2021-06-01 04:26] LABS: Hemoglobin 12.7 g/dL (14.0-18.0); Platelet Count 130 thou/uL (130-400)
[2021-06-01 04:48] LABS: BUN (Urea Nitrogen) 9 mg/dL (8.4-25.7); Calc. Creatinine Clearance 179 mL/min (70-130); Calcium 8.5 mg/dL (7.8-10.44); Glucose 215 mg/dL (70-105); Magnesium 1.3 mg/dL (1.6-2.6)
[2021-06-01 04:58] LABS: Anion Gap 13 mmol/L (10-20); Carbon Dioxide 36 mmol/L (22-29); Chloride 90 mmol/L (98-107); Potassium 3.6 mmol/L (3.5-5.1); Sodium 135 mmol/L (136-145)
[2021-06-01] MEDS ORDERED: Magnesium Sulfate 4 GM in Sodium Chloride 0.9% 250 ML 250 ML IVPB SCH (08:00)
[2021-06-01] MEDS: Dronedarone HCl 400 MG TAB PO SCH ×2 (08:56→18:11)
[2021-06-01] MEDS: Cefepime 2 GM in Sodium Chloride 0.9% 100 ML IVPB SCH ×2 (08:58→20:00)
[2021-06-01] MEDS: HumaLOG 300 UNITS/3 ML VIAL SC PRN ×2 (10:29→18:12)
[2021-06-01] MEDS: Enoxaparin Sodium 100 MG/ML SYRINGE SC SCH (20:00)
[2021-06-02] MEDS: HumaLOG 300 UNITS/3 ML VIAL SC PRN (05:33)
[2021-06-02] MEDS: Enoxaparin Sodium 100 MG/ML SYRINGE SC SCH ×2 (08:09→20:44)
[2021-06-02] MEDS: Dronedarone HCl 400 MG TAB PO SCH ×2 (08:10→17:32)
[2021-06-02] MEDS: Cefepime 2 GM in Sodium Chloride 0.9% 100 ML IVPB SCH ×2 (08:10→20:44)
[2021-06-02] MEDS ORDERED: Digoxin 0.5 MG/2 ML AMP SLOW IVP SCH (11:45)
[2021-06-03] MEDS ORDERED: Fentanyl 100 MCG/2 ML VIAL ONE ×2 (11:31→14:38)
[2021-06-03] MEDS: Cefepime 2 GM in Sodium Chloride 0.9% 100 ML IVPB SCH ×2 (13:31→20:20)
[2021-06-03] MEDS ORDERED: Heparin 25,000 units/D5W 500 ML ONE (13:39)
[2021-06-03] MEDS ORDERED: Protamine Sulfate 50 MG/5 ML VIAL ONE ×2 (13:39→13:45)
[2021-06-03] MEDS ORDERED: Lidocaine 1% (PF) 30 ML VIAL ONE (13:39)
[2021-06-03] MEDS ORDERED: Isoproterenol 0.2 MG/1 ML AMP ONE (13:39)
[2021-06-03] MEDS ORDERED: Heparin 10,000 UNITS/ 10 ML VIAL ONE ×2 (13:39→16:27)
[2021-06-03] MEDS ORDERED: Phenylephrine 10 MG/ML VIAL ONE (14:39)
[2021-06-03] MEDS ORDERED: Lidocaine 1% PF 5 ML VIAL ONE (14:44)
[2021-06-03] MEDS ORDERED: Rocuronium Bromide 10 MG/ML (10ML VIAL) ONE (14:44)
[2021-06-03] MEDS ORDERED: PROPOFOL 200 MG/20 ML VIAL ONE (14:44)
[2021-06-03] MEDS ORDERED: Atropine Sulfate 1 mg/10 ml Syringe ONE (17:56)
[2021-06-03 18:25] LABS: Actual Bicarbonate (HCO3a) 34.7 mEq/L (22-28); Base Excess (BEa) 6.3 mEq/L (-2.0 to +3.0); Calcium, Ionized (arterial) 1.09 mmol/L (1.12-1.30); Carboxyhemoglobin (COHb) 1.2 gm% (0.0-3.0); Hemoglobin (Hb) 13.6 g/dL (14.0-18.0); Potassium - ABG Lab 3.95 mmol/L (3.70-5.30); pH, Arterial 7.32 (7.35-7.45)
[2021-06-03] MEDS ORDERED: Furosemide 20 MG/2 ML VIAL ONE (18:25)
[2021-06-03 18:49] LABS: CO2 Tension 68.2 mmHg (35.0-45.0); O2 Tension (PaO2), arterial 52.4 mmHg (80.0-100.0); Puncture Site RBA
[2021-06-03] MEDS ORDERED: Ketorolac Tromethamine 30 MG/ML VIAL IVP PRN (20:28)
[2021-06-03] MEDS ORDERED: Acetaminophen/Codeine 30-300mg Tablet PO PRN ×2 (20:28→20:29)
[2021-06-03] MEDS ORDERED: Furosemide 40 MG TAB PO PRN (20:35)
[2021-06-03] MEDS ORDERED: Potassium Chloride 20 MEQ TAB PO PRN (20:36)
[2021-06-03] MEDS ORDERED: Apixaban 5 MG TAB PO SCH (21:00)
[2021-06-04] MEDS: Sucralfate 1 GM TAB PO SCH ×4 (00:15→16:48)
[2021-06-04] MEDS: HumaLOG 300 UNITS/3 ML VIAL SC PRN ×2 (06:53→16:48)
[2021-06-04] MEDS: Cefepime 2 GM in Sodium Chloride 0.9% 100 ML IVPB SCH ×2 (08:40→20:57)
[2021-06-04] MEDS ORDERED: Furosemide 40 MG/4 ML VIAL SLOW IVP SCH (10:00)
[2021-06-04] MEDS: Apixaban 5 MG TAB PO SCH ×2 (12:58→20:54)
[2021-06-04] MEDS ORDERED: Carvedilol 3.125 MG TAB PO SCH ×3 (13:00→21:00)
[2021-06-04] MEDS ORDERED: metFORMIN 500 MG TAB PO SCH (19:15)
[2021-06-04] MEDS: Acetaminophen 325 MG TAB PO PRN (20:57)
[2021-06-04] MEDS: Ipratropium Bromide 2.5 ml Neb NEB SCH (23:27)
[2021-06-05] MEDS: Sucralfate 1 GM TAB PO SCH ×5 (00:43→23:54)
[2021-06-05] MEDS: Ipratropium Bromide 2.5 ml Neb NEB SCH ×4 (01:21→19:41)
[2021-06-05] MEDS: HumaLOG 300 UNITS/3 ML VIAL SC PRN ×2 (06:26→12:19)
[2021-06-05] MEDS ORDERED: Carvedilol 3.125 MG TAB PO SCH (08:00)
[2021-06-05] MEDS: metFORMIN 500 MG TAB PO SCH ×2 (09:00→18:24)
[2021-06-05] MEDS: Cefepime 2 GM in Sodium Chloride 0.9% 100 ML IVPB SCH ×2 (09:00→21:31)
[2021-06-05] MEDS: Carvedilol 6.25 MG TAB PO SCH ×2 (09:01→18:24)
[2021-06-05] MEDS: Apixaban 5 MG TAB PO SCH ×2 (09:01→21:32)
[2021-06-05 16:52] LABS: SARS-CoV-2 PCR by NAA Not Detected (NotDetected)
[2021-06-06] MEDS: Ipratropium Bromide 2.5 ml Neb NEB SCH ×2 (02:14→12:35)
[2021-06-06 04:18] VITALS: BMI 40.6
[2021-06-06] MEDS: Sucralfate 1 GM TAB PO SCH ×2 (05:48→13:14)
[2021-06-06] MEDS: Cefepime 2 GM in Sodium Chloride 0.9% 100 ML IVPB SCH (09:45)
[2021-06-06] MEDS: metFORMIN 500 MG TAB PO SCH (09:45)
[2021-06-06] MEDS: Apixaban 5 MG TAB PO SCH (09:45)
[2021-06-06] MEDS: Carvedilol 6.25 MG TAB PO SCH (09:59)
[2021-06-06 12:07] VITALS: BP 128/59; TEMP 98.5
== END 2021-06-06 13:12 | disposition home or self-care (01) | DRG 273 ==
LOC: ERS 17:59 → NEURO 19:16 → OBSVTOIN 05-26 16:45 → CCU 05-29 23:36 → IMCU/EMU 05-30 18:57 → NEURO 06-04 20:19
PROVIDERS: ADMIT Internal Medicine; ATTEND Family Medicine
PROC: B24BZZ4 Ultrasonography of Heart with Aorta, Transesophageal (ICD-10-PCS; 2021-05-26)
PROC: 5A2204Z Restoration of Cardiac Rhythm, Single (ICD-10-PCS; 2021-05-26)
PROC: 5A09457 Assistance with Respiratory Ventilation, 24-96 Consecutive Hours, Continuous Positive Airway Pressure (ICD-10-PCS; 2021-05-27)
PROC: 02583ZZ Destruction of Conduction Mechanism, Percutaneous Approach (ICD-10-PCS; principal; 2021-06-03)
PROC: 4A023FZ Measurement of Cardiac Rhythm, Percutaneous Approach (ICD-10-PCS; 2021-06-03)
PROC: 4A0234Z Measurement of Cardiac Electrical Activity, Percutaneous Approach (ICD-10-PCS; 2021-06-03)
PROC: 02K83ZZ Map Conduction Mechanism, Percutaneous Approach (ICD-10-PCS; 2021-06-03)
DX: I48.4 Atypical atrial flutter (principal); J96.21 Acute and chronic respiratory failure with hypoxia; I50.43 Acute on chronic combined systolic (congestive) and diastolic (congestive) heart failure; J18.9 Pneumonia, unspecified organism; N17.9 Acute kidney failure, unspecified; Z68.41 Body mass index [BMI] 40.0-44.9, adult; E66.2 Morbid (severe) obesity with alveolar hypoventilation; G93.40 Encephalopathy, unspecified; J44.0 Chronic obstructive pulmonary disease with (acute) lower respiratory infection; Z20.822 Contact with and (suspected) exposure to COVID-19; I11.0 Hypertensive heart disease with heart failure; F17.210 Nicotine dependence, cigarettes, uncomplicated; E11.65 Type 2 diabetes mellitus with hyperglycemia; E78.00 Pure hypercholesterolemia, unspecified; Z79.84 Long term (current) use of oral hypoglycemic drugs; Z79.899 Other long term (current) drug therapy; Z85.3 Personal history of malignant neoplasm of breast; Z91.14 Patient's other noncompliance with medication regimen
CPT/HCPCS: 36415; 36416; 36600; 70450; 71045; 80048; 80061; 80202; 81001; 82805; 83036; 83605; 83735; 83880; 84145; 84443; 84484; 85014; 85018; 85025; 85049; 85347; 85379; 87040; 87086; 89220; 92960; 93005; 93010; 93306; 93312; 93613; 93622; 93623; 93655; 93656; 93657; 93662; 93798; 94640; 94660; 96372; 96374; 96375; C1732; C1759; C1776; G0378; J0153; J0461; J0692; J1160; J1642; J1644; J1650; J1815; J1940; J2001; J2370; J2704; J2720; J3010; J3370; J3475; J3490; J7050; J7620; U0003; U0005

== ENCOUNTER 2021-07-08 15:48 | Inpatient (IN) | payer OTHER ==
[2021-07-08] MEDS ORDERED: Ondansetron PF 4 MG/2 ML Vial IVP PRN (19:41)
[2021-07-08] MEDS ORDERED: Bisacodyl 5 MG TAB PO PRN (19:41)
[2021-07-08] MEDS ORDERED: Senokot S 8.6-50 MG TAB PO PRN (19:41)
[2021-07-08] MEDS ORDERED: Melatonin 3 MG TAB PO PRN (19:47)
[2021-07-08] MEDS ORDERED: Dextrose 50% Abboject 50 ML SYRINGE SLOW IVP PRN (19:49)
[2021-07-08] MEDS ORDERED: Dextrose 5% in Water 1,000 ML IV PRN (19:49)
[2021-07-08 20:19] LABS: Calcium 8.6 mg/dL (7.8-10.44); Magnesium 1.7 mg/dL (1.6-2.6); Phosphorus 3.5 mg/dL (2.3-4.7)
[2021-07-08 20:25] LABS: Troponin I 0.021 ng/mL (< 0.028)
[2021-07-08] MEDS ORDERED: Labetalol HCl 100 MG/20 ML VIAL SLOW IVP PRN (20:54)
[2021-07-08] MEDS: HumaLOG 300 UNITS/3 ML VIAL SC PRN (21:30)
[2021-07-08] MEDS: Apixaban 5 MG TAB PO SCH (21:30)
[2021-07-08] MEDS ORDERED: Furosemide 20 MG/2 ML VIAL SLOW IVP SCH (21:30)
[2021-07-08 22:52] LABS: Troponin I 0.022 ng/mL (< 0.028)
[2021-07-09] MEDS: Sucralfate 1 GM TAB PO SCH ×5 (00:29→23:14)
[2021-07-09] MEDS: Ipratropium Bromide 2.5 ml Neb NEB SCH ×4 (01:35→19:07)
[2021-07-09] MEDS: Diltiazem 125 MG in Sodium Chloride 0.9% 100 ML IVPB SCH (02:23)
[2021-07-09 04:59] LABS: #Basophils 0.1 thou/uL (0.0-0.2); #Eosinphils 0.1 thou/uL (0.0-0.7); #Lymphocytes 1.1 thou/uL (1.20-3.40); #Neutrophils 6.2 thou/uL (1.40-6.50); %Basophils 0.6 % (0.0-1.0); %Eosinophils 1.7 % (0.0-10.0); %Lymphocytes 13.2 % (21.0-51.0); %Monocytes 11.5 % (0.0-10.0); Hemoglobin 12.4 g/dL (14.0-18.0); Mean Corpuscular HGB CONC 30.4 g/dL (32.0-36.0); Mean Corpuscular Hemoglobin 30.3 pg (27.0-31.0); Mean Corpuscular Volume 99.6 fL (78.0-98.0); Mean Platelet Volume 9.1 fL (7.4-10.4); Platelet Count 158 thou/uL (130-400); RBC Distribution Width 14.5 % (11.5-14.5); Red Blood Cell (RBC) Count 4.09 mill/uL (4.70-6.10); White Blood Cell (WBC) Count 8.5 thou/uL (4.8-10.8)
[2021-07-09 05:21] LABS: ALT (SGPT) 12 U/L (8-55); AST (SGOT) 25 U/L (5-34); Albumin 3.5 g/dL (3.5-5.0); Alkaline Phosphatase 74 U/L (40-110); Anion Gap 7 mmol/L (10-20); BUN (Urea Nitrogen) 11 mg/dL (8.4-25.7); Bilirubin, Total 0.9 mg/dL (0.2-1.2); Calc. Creatinine Clearance 149 mL/min (70-130); Calcium 8.5 mg/dL (7.8-10.44); Carbon Dioxide 35 mmol/L (22-29); Chloride 97 mmol/L (98-107); Globulin 3.7 g/dL (2.4-3.5); Glucose 171 mg/dL (70-105); Potassium 4.2 mmol/L (3.5-5.1); Protein, Total 7.2 g/dL (6.0-8.3); Sodium 135 mmol/L (136-145)
[2021-07-09] MEDS: HumaLOG 300 UNITS/3 ML VIAL SC PRN ×3 (06:23→21:10)
[2021-07-09] MEDS: Carvedilol 6.25 MG TAB PO SCH ×2 (08:01→18:02)
[2021-07-09] MEDS: Apixaban 5 MG TAB PO SCH ×2 (08:02→21:09)
[2021-07-09] MEDS ORDERED: Non-Formulary Item 1 EACH (Tiotropium Bromide [Spiriva] 18 MCG Cap.W.Dev) IH SCH (09:00)
[2021-07-09 12:13] LABS: SARS-CoV-2 PCR by NAA Not Detected (NotDetected)
[2021-07-10] MEDS: Ipratropium Bromide 2.5 ml Neb NEB SCH ×4 (00:33→18:53)
[2021-07-10] MEDS: Diltiazem 125 MG in Sodium Chloride 0.9% 100 ML IVPB SCH (03:26)
[2021-07-10] MEDS: Sucralfate 1 GM TAB PO SCH ×4 (06:19→23:43)
[2021-07-10] MEDS: HumaLOG 300 UNITS/3 ML VIAL SC PRN ×3 (06:20→17:15)
[2021-07-10] MEDS: Carvedilol 6.25 MG TAB PO SCH ×2 (08:30→17:14)
[2021-07-10] MEDS: Apixaban 5 MG TAB PO SCH ×2 (08:30→22:42)
[2021-07-11] MEDS: Ipratropium Bromide 2.5 ml Neb NEB SCH ×6 (01:22→19:55)
[2021-07-11] MEDS ORDERED: Furosemide 40 MG/4 ML VIAL SLOW IVP SCH (02:08)
[2021-07-11] MEDS ORDERED: Fluticasone Propionate Nasal Spray 16 gm Bottle NASAL SCH ×2 (02:30→09:00)
[2021-07-11] MEDS ORDERED: Levalbuterol HCl 0.63 MG/3 ML NEB NEB SCH (03:45)
[2021-07-11] MEDS: Diltiazem 125 MG in Sodium Chloride 0.9% 100 ML IVPB SCH (05:48)
[2021-07-11] MEDS: Sucralfate 1 GM TAB PO SCH ×3 (05:55→16:39)
[2021-07-11] MEDS: Levalbuterol HCl 0.63 MG/3 ML NEB NEB SCH ×3 (06:44→19:54)
[2021-07-11] MEDS: Carvedilol 6.25 MG TAB PO SCH ×2 (08:58→16:39)
[2021-07-11] MEDS: Apixaban 5 MG TAB PO SCH ×2 (08:58→21:46)
[2021-07-11] MEDS: Fluticasone Propionate Nasal Spray 16 gm Bottle NASAL SCH (08:59)
[2021-07-11] MEDS: HumaLOG 300 UNITS/3 ML VIAL SC PRN ×2 (11:13→16:39)
[2021-07-12] MEDS: Sucralfate 1 GM TAB PO SCH ×5 (00:49→23:13)
[2021-07-12] MEDS: Ipratropium Bromide 2.5 ml Neb NEB SCH ×5 (01:51→19:16)
[2021-07-12] MEDS: Levalbuterol HCl 0.63 MG/3 ML NEB NEB SCH ×4 (01:51→19:17)
[2021-07-12] MEDS: Diltiazem 125 MG in Sodium Chloride 0.9% 100 ML IVPB SCH (05:20)
[2021-07-12] MEDS: Carvedilol 6.25 MG TAB PO SCH ×2 (09:33→17:43)
[2021-07-12] MEDS: Apixaban 5 MG TAB PO SCH ×2 (09:33→21:22)
[2021-07-12] MEDS: Fluticasone Propionate Nasal Spray 16 gm Bottle NASAL SCH (09:34)
[2021-07-12] MEDS: Furosemide 40 MG/4 ML VIAL SLOW IVP SCH (09:34)
[2021-07-12] MEDS: HumaLOG 300 UNITS/3 ML VIAL SC PRN ×3 (12:44→21:23)
[2021-07-13] MEDS: Ipratropium Bromide 2.5 ml Neb NEB SCH ×4 (01:42→20:30)
[2021-07-13] MEDS: Levalbuterol HCl 0.63 MG/3 ML NEB NEB SCH ×4 (01:42→20:30)
[2021-07-13] MEDS: Sucralfate 1 GM TAB PO SCH ×3 (06:46→19:24)
[2021-07-13] MEDS: Carvedilol 6.25 MG TAB PO SCH ×2 (09:01→17:08)
[2021-07-13] MEDS: Fluticasone Propionate Nasal Spray 16 gm Bottle NASAL SCH (09:02)
[2021-07-13] MEDS: Apixaban 5 MG TAB PO SCH ×2 (09:02→21:15)
[2021-07-13] MEDS ORDERED: Melatonin 3 MG TAB PO PRN (09:15)
[2021-07-13] MEDS ORDERED: Senokot S 8.6-50 MG TAB PO PRN (09:15)
[2021-07-13] MEDS: Furosemide 40 MG/4 ML VIAL SLOW IVP SCH (09:36)
[2021-07-13] MEDS: Dronedarone HCl 400 MG TAB PO SCH (18:21)
[2021-07-13] MEDS: HumaLOG 300 UNITS/3 ML VIAL SC PRN (18:21)
[2021-07-14] MEDS: Sucralfate 1 GM TAB PO SCH ×5 (00:02→23:26)
[2021-07-14] MEDS: Levalbuterol HCl 0.63 MG/3 ML NEB NEB SCH ×5 (01:45→22:29)
[2021-07-14] MEDS: Ipratropium Bromide 2.5 ml Neb NEB SCH ×5 (01:45→22:30)
[2021-07-14 06:49] LABS: BUN (Urea Nitrogen) 10 mg/dL (8.4-25.7); Calc. Creatinine Clearance 149 mL/min (70-130); Calcium 8.9 mg/dL (7.8-10.44); Glucose 261 mg/dL (70-105)
[2021-07-14 06:58] LABS: Anion Gap 17 mmol/L (10-20); Carbon Dioxide 35 mmol/L (22-29); Chloride 91 mmol/L (98-107); Potassium 4.5 mmol/L (3.5-5.1); Sodium 138 mmol/L (136-145)
[2021-07-14] MEDS: Dronedarone HCl 400 MG TAB PO SCH (08:41)
[2021-07-14] MEDS: Carvedilol 6.25 MG TAB PO SCH ×2 (08:41→16:33)
[2021-07-14] MEDS: Furosemide 40 MG/4 ML VIAL SLOW IVP SCH (08:41)
[2021-07-14] MEDS: Apixaban 5 MG TAB PO SCH ×2 (08:41→20:43)
[2021-07-14] MEDS: Fluticasone Propionate Nasal Spray 16 gm Bottle NASAL SCH (09:09)
[2021-07-14] MEDS ORDERED: PROPOFOL 20 ML ONE (11:05)
[2021-07-14] MEDS ORDERED: PROPOFOL 200 MG/20 ML VIAL ONE (11:14)
[2021-07-14] MEDS ORDERED: EPINEPHrine 1 MG/10 ML Abboject SYRINGE ONE (11:22)
[2021-07-14] MEDS ORDERED: DOPamine 400 MG/D5W 250 ML 250 ML ONE (11:40)
[2021-07-14] MEDS ORDERED: DOPamine 400 MG/D5W 250 ML 250 ML IVPB SCH (17:45)
[2021-07-15] MEDS: Sucralfate 1 GM TAB PO SCH ×4 (06:25→23:43)
[2021-07-15] MEDS: HumaLOG 300 UNITS/3 ML VIAL SC PRN ×2 (06:25→11:08)
[2021-07-15] MEDS: Ipratropium Bromide 2.5 ml Neb NEB SCH ×4 (08:02→23:40)
[2021-07-15] MEDS: Levalbuterol HCl 0.63 MG/3 ML NEB NEB SCH ×4 (08:03→23:39)
[2021-07-15] MEDS: Apixaban 5 MG TAB PO SCH ×2 (08:30→20:26)
[2021-07-15] MEDS: Furosemide 40 MG/4 ML VIAL SLOW IVP SCH (08:30)
[2021-07-15] MEDS: Fluticasone Propionate Nasal Spray 16 gm Bottle NASAL SCH (08:31)
[2021-07-15 16:23] LABS: Magnesium 1.6 mg/dL (1.6-2.6)
[2021-07-15 22:10] LABS: SARS-CoV-2 PCR by NAA Not Detected (NotDetected)
[2021-07-16] MEDS: Sucralfate 1 GM TAB PO SCH ×3 (05:06→18:22)
[2021-07-16] MEDS: Ipratropium Bromide 2.5 ml Neb NEB SCH ×3 (07:48→19:16)
[2021-07-16] MEDS: Levalbuterol HCl 0.63 MG/3 ML NEB NEB SCH ×3 (07:49→19:17)
[2021-07-16] MEDS: Apixaban 5 MG TAB PO SCH (08:25)
[2021-07-16] MEDS: Furosemide 40 MG/4 ML VIAL SLOW IVP SCH (08:32)
[2021-07-16] MEDS: Fluticasone Propionate Nasal Spray 16 gm Bottle NASAL SCH (09:04)
[2021-07-16] MEDS: Mometasone 200 MCG/Formoterol 5 MCG 120 PUFF INHALER INH SCH ×2 (09:12→19:17)
[2021-07-17] MEDS: Sucralfate 1 GM TAB PO SCH ×4 (00:15→17:31)
[2021-07-17] MEDS: Ipratropium Bromide 2.5 ml Neb NEB SCH ×4 (01:14→19:08)
[2021-07-17] MEDS: Levalbuterol HCl 0.63 MG/3 ML NEB NEB SCH ×4 (01:15→19:09)
[2021-07-17] MEDS: Mometasone 200 MCG/Formoterol 5 MCG 120 PUFF INHALER INH SCH ×2 (08:29→19:09)
[2021-07-17] MEDS: Furosemide 40 MG/4 ML VIAL SLOW IVP SCH (10:37)
[2021-07-17] MEDS: Fluticasone Propionate Nasal Spray 16 gm Bottle NASAL SCH (10:40)
[2021-07-17] MEDS ORDERED: VANCOMYCIN 2 GRAM/400 ML BAG 2 GM in Premix Bag 1 BAG IVPB SCH (16:15)
[2021-07-17 17:01] LABS: Bacteria/HPF 4+ HPF (None Seen); Bilirubin Negative (Negative); Blood, Urine 1+ (Negative); Clarity Turbid (Clear); Glucose, Urine (Dipstick) Normal (Negative); Ketone, Urine Negative (Negative); Leukocyte 500 Leu/uL (Negative); Nitrite Negative (Negative); Protein, Urine (Dipstick) Negative (Neg-Trace); Specific Gravity, Urine 1.012 (1.002-1.036); Squamous Epithelial 0-3 HPF (0-3); Urobilinogen Normal mg/dL (Less than 2); WBC/HPF Greater than 50 HPF (0-3)
[2021-07-17 17:04] LABS: Urine Culture Reflex Yes Yes
[2021-07-17] MEDS: Acetaminophen 325 MG TAB PO PRN ×2 (17:31→21:18)
[2021-07-17] MEDS: HumaLOG 300 UNITS/3 ML VIAL SC PRN (17:35)
[2021-07-17] MEDS: Cefepime 1 GM in Sodium Chloride 0.9% 100 ML IVPB SCH (21:18)
[2021-07-17] MEDS: Apixaban 5 MG TAB PO SCH (21:18)
[2021-07-18] MEDS: Sucralfate 1 GM TAB PO SCH ×4 (00:17→17:13)
[2021-07-18] MEDS: Ipratropium Bromide 2.5 ml Neb NEB SCH ×4 (01:58→19:30)
[2021-07-18] MEDS: Levalbuterol HCl 0.63 MG/3 ML NEB NEB SCH ×4 (01:58→19:31)
[2021-07-18 04:23] LABS: BUN (Urea Nitrogen) 12 mg/dL (8.4-25.7); Calc. Creatinine Clearance 177 mL/min (70-130); Calcium 8.2 mg/dL (7.8-10.44); Glucose 182 mg/dL (70-105)
[2021-07-18 04:33] LABS: Anion Gap 11 mmol/L (10-20); Carbon Dioxide 39 mmol/L (22-29); Chloride 89 mmol/L (98-107); Potassium 3.4 mmol/L (3.5-5.1); Sodium 136 mmol/L (136-145)
[2021-07-18 05:17] LABS: #Eosinphils 0.1 thou/uL (0.0-0.7); #Lymphocytes 1.3 thou/uL (1.20-3.40); #Monocytes 1.1 thou/uL (0.11-0.59); #Neutrophils 13.4 thou/uL (1.40-6.50); %Basophils 0.3 % (0.0-1.0); %Eosinophils 0.8 % (0.0-10.0); %Lymphocytes 8.1 % (21.0-51.0); %Monocytes 6.6 % (0.0-10.0); %Neutrophils 84.3 % (42.0-75.0); Hemoglobin 11.7 g/dL (14.0-18.0); Mean Corpuscular HGB CONC 30.3 g/dL (32.0-36.0); Mean Corpuscular Hemoglobin 29.3 pg (27.0-31.0); Mean Corpuscular Volume 96.8 fL (78.0-98.0); Mean Platelet Volume 9.9 fL (7.4-10.4); Platelet Count 116 thou/uL (130-400); Platelet Morphology Comment Appears Decreased; White Blood Cell (WBC) Count 15.9 thou/uL (4.8-10.8)
[2021-07-18] MEDS ORDERED: Electrolyte Replacement Protocol 1 EACH FS PRN (05:45)
[2021-07-18] MEDS ORDERED: VANCOMYCIN 2 GRAM/400 ML BAG 2 GM in Premix Bag 1 BAG IVPB SCH (06:00)
[2021-07-18] MEDS: Cefepime 1 GM in Sodium Chloride 0.9% 100 ML IVPB SCH ×3 (06:08→21:57)
[2021-07-18] MEDS ORDERED: Potassium Chloride 20 MEQ TAB PO SCH (06:15)
[2021-07-18 06:26] LABS: Magnesium 1.5 mg/dL (1.6-2.6)
[2021-07-18] MEDS ORDERED: Magnesium 2 GM/50 ML 2 GM in Premix Bag 1 BAG IVPB SCH (06:30)
[2021-07-18] MEDS: HumaLOG 300 UNITS/3 ML VIAL SC PRN ×3 (07:41→15:43)
[2021-07-18] MEDS: Furosemide 40 MG/4 ML VIAL SLOW IVP SCH (07:56)
[2021-07-18] MEDS: Fluticasone Propionate Nasal Spray 16 gm Bottle NASAL SCH (07:56)
[2021-07-18] MEDS: Apixaban 5 MG TAB PO SCH ×2 (07:57→21:58)
[2021-07-18] MEDS: Mometasone 200 MCG/Formoterol 5 MCG 120 PUFF INHALER INH SCH ×2 (10:03→19:31)
[2021-07-18] MEDS ORDERED: predniSONE 5 MG TAB ONE (16:50)
[2021-07-18] MEDS: Lantus 1000 UNITS/10 ML VIAL SC SCH (21:58)
[2021-07-19] MEDS: Sucralfate 1 GM TAB PO SCH ×5 (00:56→23:35)
[2021-07-19] MEDS: Ipratropium Bromide 2.5 ml Neb NEB SCH ×4 (01:01→19:04)
[2021-07-19] MEDS: Levalbuterol HCl 0.63 MG/3 ML NEB NEB SCH ×4 (01:02→19:04)
[2021-07-19 05:14] LABS: BUN (Urea Nitrogen) 10 mg/dL (8.4-25.7); Calc. Creatinine Clearance 196 mL/min (70-130); Calcium 8.1 mg/dL (7.8-10.44); Glucose 113 mg/dL (70-105); Magnesium 1.6 mg/dL (1.6-2.6)
[2021-07-19 05:23] LABS: Anion Gap 14 mmol/L (10-20); Carbon Dioxide 35 mmol/L (22-29); Chloride 91 mmol/L (98-107); Potassium 3.2 mmol/L (3.5-5.1); Sodium 137 mmol/L (136-145)
[2021-07-19 05:30] LABS: Hemoglobin 11.8 g/dL (14.0-18.0); Mean Corpuscular HGB CONC 29.2 g/dL (32.0-36.0); Mean Corpuscular Hemoglobin 28.7 pg (27.0-31.0); Mean Corpuscular Volume 98.5 fL (78.0-98.0); Mean Platelet Volume 10.2 fL (7.4-10.4); Platelet Count 106 thou/uL (130-400); RBC Distribution Width 13.9 % (11.5-14.5); White Blood Cell (WBC) Count 13.9 thou/uL (4.8-10.8)
[2021-07-19 05:32] LABS: #Eosinphils 0.1 thou/uL (0.0-0.7); #Lymphocytes 1.2 thou/uL (1.20-3.40); #Monocytes 1.1 thou/uL (0.11-0.59); #Neutrophils 11.5 thou/uL (1.40-6.50); %Basophils 0.2 % (0.0-1.0); %Eosinophils 0.5 % (0.0-10.0); %Lymphocytes 8.7 % (21.0-51.0); %Monocytes 7.7 % (0.0-10.0); %Neutrophils 82.9 % (42.0-75.0); Hypochromia SLIGHT = 6-15 cells (100X) (0-5/hpf); MDiff Complete? YES; Platelet Morphology Comment Appears Decreased
[2021-07-19] MEDS ORDERED: Magnesium 2 GM/50 ML 2 GM in Premix Bag 1 BAG IVPB SCH ×2 (05:45→14:45)
[2021-07-19] MEDS ORDERED: Potassium Chloride 20 MEQ TAB PO SCH (05:45)
[2021-07-19] MEDS: Cefepime 1 GM in Sodium Chloride 0.9% 100 ML IVPB SCH ×2 (06:36→13:55)
[2021-07-19] MEDS: Mometasone 200 MCG/Formoterol 5 MCG 120 PUFF INHALER INH SCH ×2 (07:11→19:03)
[2021-07-19] MEDS: Furosemide 40 MG/4 ML VIAL SLOW IVP SCH (09:18)
[2021-07-19] MEDS: Fluticasone Propionate Nasal Spray 16 gm Bottle NASAL SCH (09:19)
[2021-07-19] MEDS: Apixaban 5 MG TAB PO SCH ×2 (09:19→09:44)
[2021-07-19] MEDS: HumaLOG 300 UNITS/3 ML VIAL SC PRN (12:01)
[2021-07-19] MEDS: Cefdinir 300 MG CAP PO SCH (21:00)
[2021-07-19] MEDS: Lantus 1000 UNITS/10 ML VIAL SC SCH (21:00)
[2021-07-20] MEDS: Levalbuterol HCl 0.63 MG/3 ML NEB NEB SCH ×3 (01:36→14:46)
[2021-07-20] MEDS: Ipratropium Bromide 2.5 ml Neb NEB SCH ×4 (01:36→19:00)
[2021-07-20 05:06] LABS: Magnesium 1.8 mg/dL (1.6-2.6)
[2021-07-20] MEDS: Sucralfate 1 GM TAB PO SCH ×3 (05:21→18:26)
[2021-07-20] MEDS ORDERED: Magnesium 2 GM/50 ML 2 GM in Premix Bag 1 BAG IVPB SCH ×2 (06:00→20:00)
[2021-07-20] MEDS: Mometasone 200 MCG/Formoterol 5 MCG 120 PUFF INHALER INH SCH ×2 (08:16→19:00)
[2021-07-20] MEDS: Cefdinir 300 MG CAP PO SCH ×2 (10:39→22:07)
[2021-07-20] MEDS: Furosemide 40 MG/4 ML VIAL SLOW IVP SCH (10:55)
[2021-07-20] MEDS: Fluticasone Propionate Nasal Spray 16 gm Bottle NASAL SCH (11:31)
[2021-07-20 13:59] LABS: #Basophils 0.1 thou/uL (0.0-0.2); #Eosinphils 0.1 thou/uL (0.0-0.7); #Lymphocytes 1.2 thou/uL (1.20-3.40); #Monocytes 0.8 thou/uL (0.11-0.59); #Neutrophils 6.1 thou/uL (1.40-6.50); %Basophils 0.7 % (0.0-1.0); %Eosinophils 1.3 % (0.0-10.0); %Lymphocytes 14.6 % (21.0-51.0); %Monocytes 9.9 % (0.0-10.0); %Neutrophils 73.4 % (42.0-75.0); Hemoglobin 12.5 g/dL (14.0-18.0); Mean Corpuscular HGB CONC 31.1 g/dL (32.0-36.0); Mean Corpuscular Hemoglobin 29.6 pg (27.0-31.0); Mean Corpuscular Volume 95.2 fL (78.0-98.0); Platelet Count 130 thou/uL (130-400); RBC Distribution Width 13.8 % (11.5-14.5); Red Blood Cell (RBC) Count 4.21 mill/uL (4.70-6.10); White Blood Cell (WBC) Count 8.2 thou/uL (4.8-10.8)
[2021-07-20 14:13] LABS: BUN (Urea Nitrogen) 8 mg/dL (8.4-25.7); Calc. Creatinine Clearance 170 mL/min (70-130); Calcium 8.6 mg/dL (7.8-10.44); Glucose 159 mg/dL (70-105); Magnesium 1.9 mg/dL (1.6-2.6)
[2021-07-20 14:23] LABS: Anion Gap 16 mmol/L (10-20); Carbon Dioxide 34 mmol/L (22-29); Chloride 90 mmol/L (98-107); Potassium 3.7 mmol/L (3.5-5.1); Sodium 136 mmol/L (136-145)
[2021-07-20 14:38] LABS: Thyroid Stimulating Hormone 1.6447 uIU/mL (0.35-4.94)
[2021-07-20] MEDS ORDERED: Gentamicin 80 MG/2 ML VIAL ONE (15:47)
[2021-07-20] MEDS ORDERED: CEFAZOLIN 1 GM VIAL ONE (15:47)
[2021-07-20] MEDS ORDERED: ceFAZolin 2 GM/DEX 5% 100 ML BAG ONE (15:48)
[2021-07-20] MEDS ORDERED: Ketamine 50 MG/ML (10ML VIAL) ONE (16:23)
[2021-07-20] MEDS ORDERED: Midazolam HCl 2 mg/2 ml Vial ONE (16:23)
[2021-07-20] MEDS ORDERED: Propofol 500 MG/50 ML VIAL ONE (16:23)
[2021-07-20] MEDS ORDERED: Fentanyl 250 MCG/5 ML VIAL ONE (16:23)
[2021-07-20] MEDS ORDERED: Phenylephrine 10 MG/ML VIAL ONE (16:24)
[2021-07-20] MEDS ORDERED: Enoxaparin Sodium 40 MG/0.4 ML SYRINGE SC SCH (21:00)
[2021-07-20] MEDS: Lantus 1000 UNITS/10 ML VIAL SC SCH (22:06)
[2021-07-20] MEDS: Acetaminophen 325 MG TAB PO PRN (22:16)
[2021-07-21] MEDS: Sucralfate 1 GM TAB PO SCH ×3 (00:48→11:45)
[2021-07-21] MEDS: Levalbuterol HCl 0.63 MG/3 ML NEB NEB SCH ×5 (01:45→14:25)
[2021-07-21] MEDS: Ipratropium Bromide 2.5 ml Neb NEB SCH ×3 (01:45→14:25)
[2021-07-21 05:04] LABS: Magnesium 2.1 mg/dL (1.6-2.6)
[2021-07-21] MEDS: Mometasone 200 MCG/Formoterol 5 MCG 120 PUFF INHALER INH SCH (07:46)
[2021-07-21] MEDS: Cefdinir 300 MG CAP PO SCH (08:55)
[2021-07-21] MEDS: Furosemide 40 MG/4 ML VIAL SLOW IVP SCH (08:55)
[2021-07-21 10:33] VITALS: BMI 37.6
[2021-07-21] MEDS: Fluticasone Propionate Nasal Spray 16 gm Bottle NASAL SCH (11:46)
[2021-07-21 16:10] VITALS: BP 124/56; TEMP 97.8
[2021-07-21] MEDS: HumaLOG 300 UNITS/3 ML VIAL SC PRN (17:11)
== END 2021-07-21 18:07 | disposition home or self-care (01) | DRG 308 ==
LOC: 2NO 15:52 → INTOOBSV 15:52 → OBSVTOIN 07-10 12:22 → CCU 07-14 12:12 → IMCU/EMU 07-15 17:17 → 2NO 07-19 15:27
PROVIDERS: ADMIT Internal Medicine; ATTEND Internal Medicine
PROC: 5A2204Z Restoration of Cardiac Rhythm, Single (ICD-10-PCS; 2021-07-14)
PROC: 5A12012 Performance of Cardiac Output, Single, Manual (ICD-10-PCS; 2021-07-14)
PROC: 5A1223Z Performance of Cardiac Pacing, Continuous (ICD-10-PCS; 2021-07-14)
PROC: 5A09357 Assistance with Respiratory Ventilation, Less than 24 Consecutive Hours, Continuous Positive Airway Pressure (ICD-10-PCS; 2021-07-18)
PROC: 0JPT0WZ Removal of Totally Implantable Vascular Access Device from Trunk Subcutaneous Tissue and Fascia, Open Approach (ICD-10-PCS; principal; 2021-07-21)
DX: I48.91 Unspecified atrial fibrillation (principal); I50.33 Acute on chronic diastolic (congestive) heart failure; J96.01 Acute respiratory failure with hypoxia; J96.22 Acute and chronic respiratory failure with hypercapnia; N39.0 Urinary tract infection, site not specified; I48.92 Unspecified atrial flutter; J44.9 Chronic obstructive pulmonary disease, unspecified; I11.0 Hypertensive heart disease with heart failure; E11.65 Type 2 diabetes mellitus with hyperglycemia; E78.00 Pure hypercholesterolemia, unspecified; I49.5 Sick sinus syndrome; D53.9 Nutritional anemia, unspecified; Z20.822 Contact with and (suspected) exposure to COVID-19; E66.01 Morbid (severe) obesity due to excess calories; I46.9 Cardiac arrest, cause unspecified; E87.6 Hypokalemia; Z53.8 Procedure and treatment not carried out for other reasons; E83.42 Hypomagnesemia; I25.2 Old myocardial infarction; Z95.3 Presence of xenogenic heart valve; Z79.01 Long term (current) use of anticoagulants; Z79.84 Long term (current) use of oral hypoglycemic drugs; Z79.899 Other long term (current) drug therapy; Z90.11 Acquired absence of right breast and nipple; Z87.891 Personal history of nicotine dependence; Z68.37 Body mass index [BMI] 37.0-37.9, adult
CPT/HCPCS: 36415; 36416; 71045; 80048; 80053; 81001; 82607; 82746; 83735; 84100; 84443; 85025; 87040; 87077; 87086; 87186; 87324; 87449; 92960; 93005; 93010; 93306; 94640; 94660; 96365; 96366; 96375; G0378; J0171; J0690; J0692; J1265; J1580; J1650; J1815; J1940; J2250; J2370; J2704; J3010; J3370; J3475; J3490; J7614; J7620; U0003; U0005

== ENCOUNTER 2023-01-14 08:14 | Outpatient (CLI) | payer OTHER | END 2023-01-14 08:15 | disposition home or self-care (01) | LOC: NM 08:14 | PROVIDERS: ATTEND Internal Medicine Medical Oncology | DX: C50.121 Malignant neoplasm of central portion of right male breast (principal) | CPT/HCPCS: 78306; A9503 ==

== ENCOUNTER 2023-12-02 10:42 | Outpatient (CLI) | payer OTHER | END 2023-12-02 10:43 | disposition home or self-care (01) | LOC: BICULT 10:42 | PROVIDERS: ATTEND Internal Medicine | DX: C50.121 Malignant neoplasm of central portion of right male breast (principal); R22.2 Localized swelling, mass and lump, trunk | CPT/HCPCS: 76999 ==

== ENCOUNTER 2024-02-17 12:20 | Outpatient (CLI) | payer OTHER ==
[2024-02-17] MEDS ORDERED: Iopamidol 370 76% 100 ML VIAL ONE (14:09)
== END 2024-02-17 12:21 | disposition home or self-care (01) ==
LOC: CT 12:20
PROVIDERS: ATTEND Specialist
DX: R22.2 Localized swelling, mass and lump, trunk (principal)
CPT/HCPCS: 71260; 82565; Q9967